=== PATIENT | female | born 1945 | race Caucasian/White ===

== ENCOUNTER 2017-04-09 23:25 | Inpatient (IN) | payer MEDICARE, OTHER ==
[~2017-04-09] VITALS: Ht 165.1 cm; Wt 85.7 kg
[~2017-04-09 23:25] MED LIST: CRESTOR40 MG PO; GLUCOPHAGE1000 MG PO; LOPRESSOR25 PO; LOSARTAN-HCTZ1 EAC1 PO; NEURONTIN 300M300 M2 PO; OXYCODONE-ACET1 EAC2 PO
[2017-04-09 23:28] VITALS: BP 129/69
[2017-04-09] MEDS ORDERED: COZAAR 50 MG TA50 M2 PO (23:48)
[2017-04-09] MEDS ORDERED: HYDRALAZINE 2525 MG PO (23:49)
[2017-04-09] MEDS ORDERED: OMEPRAZOLE 20 M20 M1 PO (23:49)
[2017-04-09] MEDS ORDERED: BRILINTA90 MG PO (23:50)
[2017-04-09] MEDS ORDERED: FLORASTOR250 MG PO (23:50)
[2017-04-09] MEDS ORDERED: ULTRAM 50MG TAB50 MG PO (23:51)
[2017-04-09] MEDS ORDERED: AMLODIPINE BESY10 MG PO (23:52)
[2017-04-09] MEDS ORDERED: AMIODARONE HCL100 MG PO (23:52)
[2017-04-09] MEDS ORDERED: AUGMENTIN 875-1 EACH PO (23:53)
[2017-04-09] MEDS ORDERED: TESSALON PERLE100 MG PO (23:54)
[2017-04-09] MEDS ORDERED: LIPITOR80 MG PO (23:54)
[2017-04-09] MEDS ORDERED: DOXYCYCLINE 10100 MG PO (23:54)
[2017-04-09] MEDS ORDERED: AMARYL4 MG PO (23:56)
[2017-04-09] MEDS ORDERED: NEURONTIN600 MG PO (23:56)
[2017-04-09] MEDS ORDERED: FEOSOL325 M1 PO (23:56)
[2017-04-09] MEDS ORDERED: LANTUS SUBQ ×2 (23:57→23:59)
[2017-04-10 00:49] LABS: HEMOGLOBIN 10.1 gm/dL (12.0-15.0); MCH 26.3 pg (26.0-34.0); MCHC 31.4 g/dL (28.0-37.0); MCV 83.6 fL (80.0-100.0); MPV 8.2 fl. (7.2-11.1); NUCLEATED RBCS 0 /100WBC; PLATELET COUNT* 212 thou/uL (150-400); RBC 3.83 mil/uL (4.20-5.00); RDW-CV 25.4 % (10.5-14.5); WBC 13.4 thou/uL (4.0-11.0)
[2017-04-10 01:00] LABS: CREATININE 1.2 mg/dL (0.6-1.3); POTASSIUM 3.6 mmol/L (3.5-5.1)
[2017-04-10 01:02] LABS: PROTIME 9.9 Seconds (9.20-11.50)
[2017-04-10 01:12] LABS: TOTAL BILIRUBIN 0.4 mg/dL (<0.1-1.0); TOTAL PROTEIN 6.3 g/dL (6.4-8.2); TROPONIN-I LEVEL 0.24 ng/mL (<0.06)
[2017-04-10 01:16] LABS: ABSOLUTE EOSINOPHILS 2.4 thou/uL (0.0-0.7); ABSOLUTE LYMPHOCYTES 0.7 thou/uL (0.8-5.3); ABSOLUTE MONOCYTES 0.5 thou/uL (0.0-1.2); ABSOLUTE NEUTROPHILS 9.8 thou/uL (1.6-8.1); ANISOCYTOSIS 2+; MICROCYTES 1+; OVALOCYTES 1+; POIKILOCYTOSIS 1+; SCHISTOCYTES Occasional; TEARDROPS Occasional
[2017-04-10 01:17] LABS: HYPOCHROMASIA 1+; MACROCYTES 1+; POLYCHROMASIA 1+; TARGET CELLS Occasional
[2017-04-10 01:18] LABS: TOXIC GRANULATION 1+
[2017-04-10 03:00] VITALS: BP 128/66
[2017-04-10 03:15] VITALS: BP 166/48
[2017-04-10 05:13] LABS: URINE BILIRUBIN NEGATIVE (Negative); URINE BLOOD NEGATIVE (Negative); URINE CLARITY CLEAR; URINE COLOR YELLOW; URINE GLUCOSE-RANDOM 1+ (Negative); URINE KETONES NEGATIVE (Negative); URINE LEUKOCYTES-REFLEX NEGATIVE (Negative); URINE NITRITE-REFLEX NEGATIVE (Negative); URINE PROTEIN 1+ (Negative); URINE UROBILINOGEN 0.2 E.U./dl (0.2-1.0)
[2017-04-10 08:30] VITALS: BP 155/54
[2017-04-10 11:29] VITALS: BP 142/47
--- NOTE | 2017-04-10 12:08 | EKG ---
[place] [address] ELECTROCARDIOGRAM REPORT Name: PANCINDI Asha Room: [address] ADM IN [facility].#: [id number] Admission: 04/10/17 Attend Phys: Kamala Gutiérrez MD Discharge: Date of : 49 Report #: [id number] THIS REPORT FOR: //name// [facility] ED Test Date: 2017-04-09 Test Time: 23:31:27 Pat Name: CINDI PAN Department: Room: [facility] Gender: F Rn Office: CAROL [place] : 1945 Requested By: Clemencia Back Order Number: [id number] MD: Partha Tan Measurements Intervals [place] Rate: 95 P: [place]: QRS: 102 QRSD: 89 T: -18 QT: 382 QTc: 481 Interpretive Statements sinus rhythm Anterior infarct, old Borderline repolarization abnormality No previous ECG available for comparison Electronically Signed On 04-10-2017 12:08:12 REGISTERED NURSES by Partha Tan [email or web address] <ELECTRONICALLY SIGNED> By: Partha Tan MD, [facility] 04/10/17 1208 D: 02/2330 30 Partha Tan MD, FACC /EPI
[2017-04-10 13:57] LABS: CALCIUM 8.4 mg/dL (8.5-10.1); CREATININE 1.2 mg/dL (0.6-1.3); MAGNESIUM 1.7 mg/dL (1.8-2.4)
[2017-04-10 15:37] VITALS: BP 141/47
[2017-04-10 20:00] VITALS: BP 130/46
[2017-04-11] VITALS: BP 123/44
[2017-04-11 04:00] VITALS: BP 117/43
[2017-04-11 08:17] LABS: ABSOLUTE LYMPHOCYTES 0.4 thou/uL (0.8-5.3); ABSOLUTE MONOCYTES 0.1 thou/uL (0.0-1.2); LYMPHOCYTES 3.6 %; NUCLEATED RBCS 0 /100WBC; PLATELET COUNT* 178 thou/uL (150-400); RDW-CV 24.1 % (10.5-14.5); WBC 10.2 thou/uL (4.0-11.0)
[2017-04-11 08:19] LABS: ABSOLUTE NEUTROPHILS 9.7 thou/uL (1.6-8.1); BASOPHILS 0.2 %; HEMATOCRIT 28.3 % (37.0-47.0); HEMOGLOBIN 8.9 gm/dL (12.0-15.0); MCH 26.3 pg (26.0-34.0); MCHC 31.6 g/dL (28.0-37.0); MCV 83.3 fL (80.0-100.0); MONOCYTES 0.9 %; MPV 8.3 fl. (7.2-11.1); POLYS 95.3 %
[2017-04-11 08:30] VITALS: BP 128/48
[2017-04-11 08:34] LABS: ALBUMIN 2.6 g/dL (3.4-5.0); CALCIUM 8.3 mg/dL (8.5-10.1); CREATININE 1.5 mg/dL (0.6-1.3); MAGNESIUM 1.8 mg/dL (1.8-2.4); POTASSIUM 4.3 mmol/L (3.5-5.1); TOTAL BILIRUBIN 0.2 mg/dL (<0.1-1.0); TOTAL PROTEIN 5.3 g/dL (6.4-8.2)
[2017-04-11 12:00] VITALS: BP 137/41
[2017-04-11 16:00] VITALS: BP 119/36
[2017-04-11 20:00] VITALS: BP 127/45
[2017-04-12] VITALS: BP 125/42
[2017-04-12 04:00] VITALS: BP 115/38
[2017-04-12 05:36] LABS: ABSOLUTE LYMPHOCYTES 1.1 thou/uL (0.8-5.3); ABSOLUTE MONOCYTES 0.9 thou/uL (0.0-1.2); ABSOLUTE NEUTROPHILS 9.3 thou/uL (1.6-8.1); BASOPHILS 0.1 %; EOSINOPHILS 0.1 %; HEMOGLOBIN 8.2 gm/dL (12.0-15.0); LYMPHOCYTES 9.9 %; MCH 25.5 pg (26.0-34.0); MCHC 30.4 g/dL (28.0-37.0); MONOCYTES 7.9 %; MPV 8.6 fl. (7.2-11.1); NUCLEATED RBCS 0 /100WBC; PLATELET COUNT* 176 thou/uL (150-400); RBC 3.22 mil/uL (4.20-5.00); RDW-CV 23.9 % (10.5-14.5); WBC 11.4 thou/uL (4.0-11.0)
[2017-04-12 06:46] LABS: ALBUMIN 2.5 g/dL (3.4-5.0); CALCIUM 8.1 mg/dL (8.5-10.1); CREATININE 1.9 mg/dL (0.6-1.3); TOTAL BILIRUBIN 0.1 mg/dL (<0.1-1.0); TOTAL PROTEIN 5.4 g/dL (6.4-8.2)
[2017-04-12 08:30] VITALS: BP 138/53
[2017-04-12 12:10] VITALS: BP 126/57
[2017-04-12] MEDS ORDERED: PLAVIX 75 MG TA75 M1 PO (14:00)
[2017-04-12] MEDS ORDERED: LEVAQUIN 750 M750 MG PO (14:01)
[2017-04-12] MEDS ORDERED: PREDNISONE 10 M10 MG PO (14:01)
[2017-04-12] MEDS ORDERED: LASIX 20 MG TAB20 MG PO (14:01)
[2017-04-12] MEDS ORDERED: CARAFATE 1 GM TA1 G1 PO (14:02)
[2017-04-12] MEDS ORDERED: TESSALON PERLE100 M1 PO (14:02)
[2017-04-12 14:46] VITALS: BP 126/57
[2017-04-12 15:03] VITALS: BP 126/57
--- NOTE | 2017-04-12 18:15 | CON ---
[address] [address] CONSULTATION Name: VIVIANECINDI A Room: [address] IN ..#: [id number] Admission: 04/10/17 Attend Phys: Kamala Gutiérrez MD Discharge: 04/12/17 Date of : 49 Report #: [id number] THIS REPORT FOR: //name// CC: Adithya Gutiérrez DATE OF SERVICE: 04/10/2017 Cardiology Consultation HISTORY OF PRESENT ILLNESS: The patient is a 72-year-old single white female who was last seen in the hospital today after she complained of being short of breath. The patient has an extensive and complicated past medical history. Unfortunately, none of her old records are here at [place]. She states she had quadruple coronary bypass surgery at [facility] in 1997. She has been followed by Dr. Beltre since that time. She notes that last May she had a coronary stent placed by Dr. Beebe at [place] through the right femoral artery. 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 She had a wound VAC placed and eventually had to have surgery. She was anemic and required a transfusion. She had another coronary stent placed in December and apparently at that time, it was placed from the radial artery at [place]. She was actually just admitted to [facility] 10 days ago apparently with pneumonia. She was there for 10 days. She then was discharged from [facility] yesterday afternoon. She went home and ate dinner. After dinner, she laid down and felt short of breath. Her daughter brought her here to [place]. According to the patient, the reason she came here was that she did not get any answers from her doctors at [facility]. She apparently had been advised to go to a prison unit, but she refused. She denied any fever. She has had some chest tightness. Denied any syncope. PAST MEDICAL HISTORY: Otherwise, significant for hysterectomy, tonsillectomy, knee surgery, cataract extraction, hypertension, diabetes and hyperlipidemia. MEDICATIONS: Consists of amiodarone for an episode of atrial fibrillation which she was just recently placed on, amlodipine, Augmentin, Lipitor, Neurontin, Amaryl, insulin, losartan, omeprazole, Crestor, Brilinta, tramadol, she is not taking aspirin. ALLERGIES: Has an intolerance to CODEINE. FAMILY HISTORY: Positive for heart disease. SOCIAL HISTORY: She is , lives by herself and 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 Quit smoking years ago. No alcohol abuse. REVIEW OF SYSTEMS: She states she may have had a small stroke in the past. She has no history of asthma, peptic ulcer disease or liver disease. She has chronic kidney disease, no cancer. No psychiatric illness. PHYSICAL EXAMINATION: GENERAL: Revealed an elderly female lying in bed. She appeared in no distress. VITAL SIGNS: She had a blood pressure 130/60, pulse 70. She is afebrile. HEENT: She was anicteric. Conjunctivae pink. Mucous membranes moist. NECK: Veins nondistended. systolic murmur noted in the carotids. CHEST: Clear to auscultation. CARDIAC: Regular rhythm, grade 3 systolic ejection murmur. ABDOMEN: Soft, nontender. EXTREMITIES: Had no edema. Dorsalis pedis pulse could not be palpated. SKIN: Dry and warm. NEUROLOGIC: Nonfocal. LYMPH: No adenopathy. MUSCULOSKELETAL: No joint effusion. PSYCHIATRIC: Mood is appropriate. DIAGNOSTIC DATA: Her ECG done last night showed a sinus rhythm, left atrial enlargement, nonspecific T-wave changes. Unfortunately, as mentioned, there are no old EKGs to compare it to. Her workup in the emergency room last night, she had a portable chest x-ray that showed cardiomegaly, atelectasis in left lower lung. LABORATORY DATA: Sodium 139, glucose is 264, alkaline phosphatase is 123. Her troponin was 0.24, this morning is 0.22. Her white blood cell count 13.4, hemoglobin of 10.0. IMPRESSION AND RECOMMENDATIONS: 1. Chest pain, possible angina. The patient had previous bypass surgery. She had stents placed last May and December at [place]. I will attempt to obtain the old records. At this time, I would not recommend repeat cardiac catheterization. 2. Shortness of breath: The patient recently treated for pneumonia. 3. . 4. 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 5. Hypertension. The patient has been on a calcium graciela and ARB. 6. History of atrial fibrillation. The patient is on amiodarone. 7. Diabetes. 8. Hyperlipidemia. The patient is on a statin drug. 9. Murmur of aortic stenosis. I will attempt to obtain the records after, the [address] [place] [address] CONSULTATION Name: CINDI PAN Room: [address]#: [id number] Admission: 04/10/17 Attend Phys: Kamala Gutiérrez MD Discharge: 04/12/17 Date of : 49 Report #: [id number] patient was just discharged yesterday following a 10-day hospitalization at [place]. <ELECTRONICALLY SIGNED> By: Partha Tan MD, FACC 04/12/17 1815 0933 1225Dageorgina Tan MD, FACC /nt
== END 2017-04-12 16:15 | disposition home health service (06) | DRG 177 ==
LOC: M.ERS 23:25 → M.2W 04-10 00:44 → M.TBA-ER 04-10 00:44 → M.2W 04-10 01:39
PROVIDERS: Emergency Medicine; Internal Medicine; ADMIT Internal Medicine
DX: J15.6 Pneumonia due to other Gram-negative bacteria (principal); I50.33 Acute on chronic diastolic (congestive) heart failure; J44.0 Chronic obstructive pulmonary disease with (acute) lower respiratory infection; I48.92 Unspecified atrial flutter; I48.91 Unspecified atrial fibrillation; E78.5 Hyperlipidemia, unspecified; I11.0 Hypertensive heart disease with heart failure; I35.0 Nonrheumatic aortic (valve) stenosis; K21.9 Gastro-esophageal reflux disease without esophagitis; I25.10 Atherosclerotic heart disease of native coronary artery without angina pectoris; D64.9 Anemia, unspecified; E11.9 Type 2 diabetes mellitus without complications; I25.2 Old myocardial infarction; Z95.5 Presence of coronary angioplasty implant and graft; Z79.899 Other long term (current) drug therapy; Z88.5 Allergy status to narcotic agent; Z90.710 Acquired absence of both cervix and uterus; Z90.49 Acquired absence of other specified parts of digestive tract; Z98.49 Cataract extraction status, unspecified eye; Z82.49 Family history of ischemic heart disease and other diseases of the circulatory system; Z87.891 Personal history of nicotine dependence; Z83.3 Family history of diabetes mellitus

== ENCOUNTER 2017-07-05 09:45 | Inpatient (IN) | payer MEDICARE, OTHER ==
[~2017-07-05] VITALS: Ht 165.1 cm; Wt 82.1 kg
--- NOTE | ~2017-07-05 | PROC ---
[address] [address] PROCEDURE REPORT Name: CINDI PAN Room: [address] IN ..#: [id number] Admission: 07/05/17 Attend Phys: Drake Merritt, Discharge: 07/17/17 Date of : 49 Report #: [id number] THIS REPORT FOR: //name// For GI report, please see the Provation report in Perceptive 7 content. By: 0656Medical Records Staff VIDHYA /JAYDE
[~2017-07-05 09:45] MED LIST changes: +AMARYL4 MG PO; +AMIODARONE HCL100 MG PO; +AMLODIPINE BESY10 MG PO; +AUGMENTIN 875-1 EACH PO; +BRILINTA90 MG PO; +CARAFATE 1 GM TA1 G1 PO; +COZAAR 50 MG TA50 M2 PO; +DOXYCYCLINE 10100 MG PO; +FEOSOL325 M1 PO; +FLORASTOR250 MG PO; +HYDRALAZINE 2525 MG PO; +LANTUS SUBQ; +LASIX 20 MG TAB20 MG PO; +LEVAQUIN 750 M750 MG PO; +LIPITOR80 MG PO; +NEURONTIN600 MG PO; +OMEPRAZOLE 20 M20 M1 PO; +PLAVIX 75 MG TA75 M1 PO; +PREDNISONE 10 M10 MG PO; +TESSALON PERLE100 M1 PO; +TESSALON PERLE100 MG PO; +ULTRAM 50MG TAB50 MG PO
[2017-07-05 09:48] VITALS: BP 165/59
[2017-07-05 10:06] LABS: HEMATOCRIT 30.8 % (37.0-47.0); HEMOGLOBIN 9.9 gm/dL (12.0-15.0); MCH 25.9 pg (26.0-34.0); MCHC 32.1 g/dL (28.0-37.0); MCV 80.8 fL (80.0-100.0); MPV 7.7 fl. (7.2-11.1); NUCLEATED RBCS 0 /100WBC; PLATELET COUNT* 229 thou/uL (150-400); RBC 3.81 mil/uL (4.20-5.00); RDW-CV 18.8 % (10.5-14.5); WBC 9.5 thou/uL (4.0-11.0)
[2017-07-05 10:16] LABS: ANION GAP 5 mmol/L (7-16); BUN 36 mg/dL (7-18); CALCIUM 9.2 mg/dL (8.5-10.1); CHLORIDE 100 mmol/L (98-107); CO2 31 mmol/L (21-32); CREATININE 1.4 mg/dL (0.6-1.3); GLUCOSE 109 mg/dL (70-99); POTASSIUM 3.9 mmol/L (3.5-5.1); PROTIME 9.7 Seconds (9.20-11.50); SODIUM 136 mmol/L (136-145)
[2017-07-05 10:26] LABS: ALBUMIN 3.3 g/dL (3.4-5.0); ALKALINE PHOSPHATASE 92 U/L (46-116); LIPASE 66 U/L (73-393); MAGNESIUM 1.9 mg/dL (1.8-2.4); NT-PRO BRAIN NAT PEPTIDE 1627 pg/mL (<300); SGOT 9 U/L (15-37); SGPT 16 U/L (30-65); TOTAL BILIRUBIN 0.3 mg/dL (<0.1-1.0); TOTAL PROTEIN 7.4 g/dL (6.4-8.2); TROPONIN-I LEVEL <0.06 ng/mL (<0.06)
[2017-07-05 10:28] LABS: ABSOLUTE BASOPHILS 0.1 thou/uL (0.0-0.2); ABSOLUTE EOSINOPHILS 0.4 thou/uL (0.0-0.7); ABSOLUTE LYMPHOCYTES 0.9 thou/uL (0.8-5.3); ABSOLUTE MONOCYTES 0.2 thou/uL (0.0-1.2); ANISOCYTOSIS 1+; PLATELET ESTIMATE ADEQUATE
[2017-07-05 15:27] VITALS: BP 170/49
[2017-07-05 15:45] VITALS: BP 144/54
--- NOTE | 2017-07-05 16:51 | EKG ---
[place] [address] ELECTROCARDIOGRAM REPORT Name: CINDI PAN Room: [address] IN [facility]#: [id number] Admission: 07/05/17 Attend Phys: Drake Merritt, Discharge: Date of : 49 Report #: [id number] THIS REPORT FOR: //name// [facility] ED Test Date: 2017-07-05 Test Time: 09:53:38 Pat Name: CINDI PAN Department: Room: Gender: F Method Consultant: : 1945 Requested By: Paul Cullen Order Number: [id number] MD: Partha Tan Measurements Intervals [place] Rate: 74 P: 42 ME: 187 QRS: 72 QRSD: 99 T: -10 QT: 411 QTc: 456 Interpretive Statements Sinus rhythm Probable left atrial enlargement Probable anteroseptal infarct, recent Baseline wander in lead(s) V5 Compared to ECG 04/09/2017 23:31:27 No significant changes Electronically Signed On 07-05-2017 16:51:47 CDT by Partha Tan [email or web address] <ELECTRONICALLY SIGNED> By: Partha Tan MD, [facility] 07/05/17 1651 0953 0953 Partha Tan MD, [facility] /EPI
--- NOTE | 2017-07-05 17:09 | 2DMMODE ---
[place] [address] 2 D/M-MODE ECHOCARDIOGRAM Name: CINDI PAN Room: [address] IN [facility]#: [id number] Admission: 07/05/17 Attend Phys: Drake Molina Discharge: Date of : 49 Date of Service: 07/05/17 1709 Report #: [id number] THIS REPORT FOR: //name// APPROVED REPORT Study performed: 07/05/2017 15:08:56 EXAM: Comprehensive 2D, Doppler, and color-flow Echocardiogram Patient Location: In-Patient Room #: er Status: routine BSA: 1.86 HR: 67 bpm BP: 160/46 mmHg Rhythm: NSR Other Information Study Quality: Good Indications Chest Pain 2D Dimensions LVEF(%): 77.92 (>50%) IVSd: 12.95 (7-11mm) LVOT Diam: 19.06 (18-24mm) LVDd: 53.99 mm PWd: 10.90 (7-11mm) Ascending Ao: 26.75 (22-36mm) LVDs: 28.62 (25-40mm) Aortic Root: 31.56 mm Phillips's LVEF: 77.92 % Volumes Left Atrial Volume (Systole) LA ESV Index: 42.40 mL/m2 Aortic Valve AoV Peak Tono.: 2.05 m/s AO Peak Gr.: 16.76 mmHg LVOT Max P.01 mmHg AO Mean Gr.: 9.00 mmHg LVOT Mean P.02 mmHg LVOT Max V: 1.23 m/s AO V2 VTI: 50.84 cm LVOT Mean V: 0.79 m/s ROSARIO (VTI): 1.80 cm2 LVOT V1 VTI: 31.99 cm Mitral Valve E/A Ratio: 1.49 [place] [address] 2 D/M-MODE ECHOCARDIOGRAM Name: CINDI PAN Room: [address] IN [facility]#: [id number] Admission: 07/05/17 Attend Phys: Drake Molina Discharge: Date of : 49 Date of Service: 07/05/17 1709 Report #: [id number] MV Decel. Time: 238.95 ms MV E Max Tono.: 1.57 m/s MV PHT: 69.30 ms MVA (PHT): 3.17 cm2 TDI E/Lateral E': 15.70 E/Medial E': 26.17 Medial E' Tono.: 0.06 m/s Lateral E' Tono.: 0.10 m/s Pulmonary Valve PV Peak Tono.: 1.30 m/s PV Peak Gr.: 6.71 mmHg Tricuspid Valve TR Peak Gr.: 33.03 mmHg RVSP: 38.00 mmHg Left Ventricle The left ventricle is normal size. There is normal LV segmental wall motion. There is normal left ventricular wall thickness. Left ventricular systolic function is normal. The left ventricular ejection fraction is within the normal range. LVEF is 55-60%. The left ventricular diastolic function is normal. Right Ventricle The right ventricle is normal size. The right ventricular systolic function is normal. Atria Left atrium is mild to moderately dilated. The right atrium size is normal. Aortic Valve Mild aortic valve sclerosis. No aortic regurgitation is present. Mild aortic stenosis. Mitral Valve There is mitral annular calcification. Mild mitral regurgitation. No evidence of mitral valve stenosis. Tricuspid Valve The tricuspid valve is normal in structure. Trace tricuspid regurgitation. The RVSP is 40 mmHg. Pulmonic Valve The pulmonary valve is normal in structure. There is no pulmonic [place] [address] 2 D/M-MODE ECHOCARDIOGRAM Name: CINDI PAN Asha Room: [address] IN [facility]#: [id number] Admission: 07/05/17 Attend Phys: Drake Molina Discharge: Date of : 49 Date of Service: 07/05/17 1709 Report #: [id number] Great Vessels The aortic root is normal in size. IVC is normal in size and collapses with >50% inspiration Pericardium There is no pericardial effusion. <Conclusion> LVEF is 55-60%. Left atrium is mild to moderately dilated. Mild aortic stenosis. Mild mitral regurgitation. <ELECTRONICALLY SIGNED> By: Parhta Tan MD, [facility] 07/05/171708 08 08 Partha Tan MD, FACC /INF
[2017-07-05 20:00] VITALS: BP 162/56
[2017-07-06] VITALS: BP 102/51
[2017-07-06 04:00] VITALS: BP 148/55
[2017-07-06 08:00] VITALS: BP 151/44
[2017-07-06 12:06] VITALS: BP 137/42
[2017-07-06 15:40] VITALS: BP 128/44
[2017-07-06 20:00] VITALS: BP 140/50
[2017-07-07] VITALS (7 sets, daily range): BP systolic 124–151; BP diastolic 43–59
[2017-07-07 07:35] LABS: CALCIUM 8.6 mg/dL (8.5-10.1); CREATININE 1.4 mg/dL (0.6-1.3); POTASSIUM 4.4 mmol/L (3.5-5.1)
[2017-07-07 12:53] LABS: CREATININE 1.4 mg/dL (0.6-1.3)
[2017-07-08] VITALS (7 sets, daily range): BP systolic 118–158; BP diastolic 42–78
[2017-07-08 13:49] LABS: HEMOGLOBIN 7.8 gm/dL (12.0-15.0); MCH 26.1 pg (26.0-34.0); MCHC 32.5 g/dL (28.0-37.0); MCV 80.4 fL (80.0-100.0); MPV 7.7 fl. (7.2-11.1); RBC 2.99 mil/uL (4.20-5.00); RDW-CV 17.4 % (10.5-14.5); WBC 8.9 thou/uL (4.0-11.0)
[2017-07-08 13:59] LABS: CALCIUM 8.8 mg/dL (8.5-10.1); CREATININE 1.3 mg/dL (0.6-1.3); MAGNESIUM 1.9 mg/dL (1.8-2.4); POTASSIUM 4.2 mmol/L (3.5-5.1)
--- NOTE | 2017-07-08 18:03 | CON ---
[address] [address] CONSULTATION Name: CINDI PAN Room: [address] IN [facility]#: [id number] Admission: 07/05/17 Attend Phys: Drake Merritt, Discharge: Date of : 49 Report #: [id number] THIS REPORT FOR: //name// CC: Adithya Merritt DATE OF SERVICE: 07/05/2017 TYPE OF REPORT: Cardiology consultation. HISTORY OF PRESENT ILLNESS: The patient is a 72-year-old single white female who was admitted complaining of left arm pain. The patient had coronary artery bypass surgery at [facility] in 1997. She has been followed by Dr. Beltre since that time. A year ago, she had a stent placed by Dr. Beebe at [facility] to the right femoral artery. 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 She had a wound VAC in place and eventually had to have surgery. She was anemic and required a transfusion. She had another stent placed last December from the right radial artery at [facility]. The patient did undergo cardiac rehabilitation at [facility]. She notes that 4 days ago, she was when she tripped and fell. She did not go to the Emergency Room. Today, the patient complained of her left arm was aching. She may have slept on her arm wrong. She denied any swelling or trauma to her arm. She denied any rash. Because of the pain, she finally came to the Emergency Room today and was admitted. She does get short of breath with exertion but has had no increase in edema, palpitations or syncope. PAST MEDICAL HISTORY: Otherwise significant for previous hysterectomy, tonsillectomy, knee surgery, cataract extraction, hypertension, diabetes, hyperlipidemia and atrial fibrillation. She uses oxygen with exertion. MEDICATIONS: Consists of amiodarone for atrial fibrillation, although she has never been cardioverted. Amlodipine, atorvastatin, Plavix, furosemide, Neurontin, glimepiride, hydralazine, insulin, losartan, metoprolol, omeprazole, rosuvastatin, sucralfate and tramadol. ALLERGIES: She has an intolerance to CODEINE. FAMILY HISTORY: Heart disease runs in the family. SOCIAL HISTORY: She is , lives in [place]. Quit smoking in 1997. No alcohol abuse. REVIEW OF SYSTEMS: She has had no history of stroke or asthma[place] [address] CONSULTATION Name: CINDI PAN Room: [address]#: [id number] Admission: 07/05/17 Attend Phys: Drake Merritt, Discharge: Date of : 49 Report #: [id number] peptic ulcer in the past. No kidney disease. No cancer. No psychiatric illness. No chronic skin condition. PHYSICAL EXAMINATION: GENERAL: Revealed an elderly female who is lying in bed, appeared in no distress. VITAL SIGNS: Show blood pressure 160/60, pulse 70 and she is afebrile. HEENT: She was anicteric. Conjunctivae pink. Mucous members moist. NECK: Veins nondistended. right carotid bruit was heard. CHEST: Clear to auscultation. CARDIOVASCULAR: Regular rate and rhythm. No murmur. ABDOMEN: Soft and nontender. No masses were palpated. EXTREMITIES: Had no trace edema. Dorsalis pedis pulse cannot be palpated. SKIN: Cool and dry. RADIOLOGICAL DATA: Her ECG on admission showed a sinus rhythm, nonspecific ST and T-wave changes. Her x-rays, she had a portable chest x-ray that showed cardiomegaly, no pulmonary edema. She had an x-ray of her shoulder that showed no acute abnormality. X-ray of her elbow showed no fracture or dislocation. LABORATORY DATA: She had lab work today, sodium 136, BUN 36, creatinine 1.4 which is unchanged and glucose 106. Liver function studies are normal. Troponin 0.06. White blood cell count 9.5, hemoglobin 9.9 and hematocrit 38.8. Her hemoglobin is unchanged from March. IMPRESSION AND RECOMMENDATIONS: 1. Left arm pain. Suspect trauma. Recommend no further cardiac evaluation. 2. Coronary artery disease. Previous stents. I will continue Plavix. 3. Peripheral arterial disease. Previous stents in both legs. No symptoms of claudication. 4. Carotid bruit. Recommend Doppler. 5. Hypertension. The patient has been on a calcium graciela, hydralazine, adrenergic receptor binder and beta graciela. 6. History of atrial fibrillation. The patient is on amiodarone. 7. Hyperlipidemia. The patient is on a statin drug. 8. Previous tobacco abuse. 9. History of peptic ulcer disease. 10. Anemia. No history of bleeding recently. <ELECTRONICALLY SIGNED> By: Partha Tan MD, FACC 07/08/17 1803 1630 2317Daviparesh Tan MD, FACC /nt
[2017-07-09] VITALS (7 sets, daily range): BP systolic 106–145; BP diastolic 41–72
[2017-07-09 02:54] LABS: HEMATOCRIT 23.8 % (37.0-47.0); HEMOGLOBIN 7.7 gm/dL (12.0-15.0); MCH 25.9 pg (26.0-34.0); MCHC 32.1 g/dL (28.0-37.0); MCV 80.5 fL (80.0-100.0); MPV 8.5 fl. (7.2-11.1); RBC 2.96 mil/uL (4.20-5.00); RDW-CV 17.6 % (10.5-14.5); WBC 9.8 thou/uL (4.0-11.0)
[2017-07-09 03:19] LABS: CALCIUM 8.7 mg/dL (8.5-10.1); CREATININE 1.5 mg/dL (0.6-1.3); MAGNESIUM 1.9 mg/dL (1.8-2.4); POTASSIUM 3.9 mmol/L (3.5-5.1)
--- NOTE | 2017-07-09 10:08 | EKG ---
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: isaiah preciado : 1945 Requested By: Kamala Gutiérrez Order Number: [id number] Reading MD: Partha Tna Measurements Intervals [place] Rate: 78 P: 36 [place]: 175 QRS: 63 QRSD: 104 T: -19 QT: 424 QTc: 484 Interpretive Statements Sinus rhythm Atrial premature complexes Probable left atrial enlargement Inferior infarct, age indeterminate Compared to ECG 07/05/2017 09:53:38 Atrial premature complex(es) now present Myocardial infarct finding still present Electronically Signed On 07-09-2017 10:07:53 CDT by Partha Tan [email or web address] <ELECTRONICALLY SIGNED> By: Partha Tan MD, FACC 07/09/17 1007 192 19 Partha Tan MD, [facility] /EPI
--- NOTE | 2017-07-09 17:18 | EKG ---
[place] [address] ELECTROCARDIOGRAM REPORT Name: CINDI PAN Room: [address] ADM IN ..#: [id number] Admission: 07/05/17 Attend Phys: Drake Merritt, Discharge: Date of : 49 Report #: [id number] THIS REPORT FOR: //name// [facility] Test Date: 2017-07-09 Test Time: 12:26:41 Pat Name: CINDI PAN Department: Room: [address] Gender: F Utility Specialist: VICENTE : 1945 Requested By: Markus Campo Order Number: [id number] Reading MD: Partha Tan Measurements Intervals [place] Rate: 84 P: 56 TN: 173 QRS: 81 QRSD: 108 T: -11 QT: 440 QTc: 521 Interpretive Statements Sinus rhythm Probable left atrial enlargement Borderline right axis deviation Borderline T abnormalities, inferior leads Prolonged QT interval Compared to ECG 07/08/2017 19:20:12 Prolonged QT interval now present Atrial premature complex(es) no longer present Myocardial infarct finding no longer present Electronically Signed On 07-09-2017 17:18:27 CDT by Partha Tan [email or web address] <ELECTRONICALLY SIGNED> By: Partha Tan MD, FAC 07/09/17 1718 1226 1226 Partha Tan MD, FAC /EPI
[2017-07-10] VITALS (7 sets, daily range): BP systolic 95–129; BP diastolic 40–48
[2017-07-10 05:24] LABS: HEMATOCRIT 21.7 % (37.0-47.0); MCH 25.6 pg (26.0-34.0); MCHC 32.1 g/dL (28.0-37.0); MCV 79.7 fL (80.0-100.0); MPV 8.3 fl. (7.2-11.1); NUCLEATED RBCS 0 /100WBC; PLATELET COUNT* 229 thou/uL (150-400); RBC 2.73 mil/uL (4.20-5.00); RDW-CV 17.9 % (10.5-14.5)
[2017-07-10 05:39] LABS: ALBUMIN 2.4 g/dL (3.4-5.0); CALCIUM 8.1 mg/dL (8.5-10.1); CREATININE 2.7 mg/dL (0.6-1.3); POTASSIUM 3.7 mmol/L (3.5-5.1); TOTAL BILIRUBIN 0.2 mg/dL (<0.1-1.0); TOTAL PROTEIN 6.1 g/dL (6.4-8.2)
[2017-07-10 05:51] LABS: ABSOLUTE EOSINOPHILS 0.3 thou/uL (0.0-0.7); ABSOLUTE LYMPHOCYTES 1.3 thou/uL (0.8-5.3); ABSOLUTE MONOCYTES 0.4 thou/uL (0.0-1.2); ABSOLUTE NEUTROPHILS 7.1 thou/uL (1.6-8.1); HYPOCHROMASIA 1+; PLATELET ESTIMATE ADEQUATE
[2017-07-10 05:52] LABS: ANISOCYTOSIS 1+; POIKILOCYTOSIS 1+
--- NOTE | 2017-07-10 16:43 | EKG ---
[place] [address] ELECTROCARDIOGRAM REPORT Name: CINDI PAN Room: [address] ADM IN M.R.#: [id number] Admission: 07/05/17 Attend Phys: Drake Merritt, Discharge: Date of : 49 Report #: [id number] THIS REPORT FOR: //name// [facility] Test Date: 2017-07-10 Test Time: 14:45:57 Pat Name: CINDI PAN Department: Room: [address] Gender: F Line Service Person: : 1945 Requested By: Darrius Aguirre Order Number: [id number] Jovani MD: Ryan Jolly Measurements Intervals [place] Rate: 63 P: 29 VT: 177 QRS: 66 QRSD: 112 T: 8 QT: 497 QTc: 509 Interpretive Statements Sinus rhythm Borderline intraventricular conduction delay Prolonged QT interval Compared to ECG 07/09/2017 12:26:41 T-wave abnormality no longer present Electronically Signed On 07-10-2017 16:43:07 CDT by Ryan Jolly [email or web address] <ELECTRONICALLY SIGNED> By: Ryan Jolly MD, [facility] 07/10/17 1643 1445 1445 Ryan Jolly MD, [facility] /EPI
[2017-07-10 17:05] LABS: HEMATOCRIT 22.8 % (37.0-47.0); HEMOGLOBIN 7.5 gm/dL (12.0-15.0)
[2017-07-11 01:37] VITALS: BP 116/40
[2017-07-11 03:56] LABS: ABSOLUTE BASOPHILS 0.1 thou/uL (0.0-0.2); ABSOLUTE EOSINOPHILS 0.6 thou/uL (0.0-0.7); ABSOLUTE LYMPHOCYTES 1.2 thou/uL (0.8-5.3); ABSOLUTE MONOCYTES 0.5 thou/uL (0.0-1.2); ABSOLUTE NEUTROPHILS 6.3 thou/uL (1.6-8.1); BASOPHILS 0.7 %; EOSINOPHILS 6.3 %; HEMATOCRIT 22.2 % (37.0-47.0); HEMOGLOBIN 7.3 gm/dL (12.0-15.0); LYMPHOCYTES 13.6 %; MCH 26.6 pg (26.0-34.0); MCHC 32.8 g/dL (28.0-37.0); MCV 81.1 fL (80.0-100.0); MONOCYTES 6.2 %; MPV 8.1 fl. (7.2-11.1); NUCLEATED RBCS 0 /100WBC; PLATELET COUNT* 199 thou/uL (150-400); POLYS 73.2 %; RBC 2.74 mil/uL (4.20-5.00); RDW-CV 17.9 % (10.5-14.5); WBC 8.7 thou/uL (4.0-11.0)
[2017-07-11 03:59] VITALS: BP 118/74
[2017-07-11 04:13] LABS: CALCIUM 7.6 mg/dL (8.5-10.1); POTASSIUM 3.5 mmol/L (3.5-5.1)
[2017-07-11 04:53] LABS: CREATININE 3.8 mg/dL (0.6-1.3)
[2017-07-11 08:00] VITALS: BP 122/40
[2017-07-11 11:45] VITALS: BP 125/54
[2017-07-11 16:00] VITALS: BP 125/48
[2017-07-11 18:18] LABS: HEMATOCRIT 24.5 % (37.0-47.0)
[2017-07-11 18:34] LABS: URINE BILIRUBIN NEGATIVE (Negative); URINE BLOOD NEGATIVE (Negative); URINE CLARITY CLEAR; URINE COLOR YELLOW; URINE GLUCOSE-RANDOM NEGATIVE (Negative); URINE KETONES NEGATIVE (Negative); URINE LEUKOCYTES-REFLEX NEGATIVE (Negative); URINE NITRITE-REFLEX NEGATIVE (Negative); URINE PROTEIN 2+ (Negative); URINE UROBILINOGEN 0.2 E.U./dl (0.2-1.0)
[2017-07-11 18:48] LABS: HYALINE CASTS >10 Many /LPF (None Seen); SQUAMOUS 0-3 Few /LPF (0-3)
[2017-07-11 18:50] LABS: CRYSTALS None Seen /LPF (None Seen); MUCUS None Seen strn/LPF (None Seen); URINE WBC-REFLEX 0-5 Rare /HPF (0-5)
[2017-07-11 18:51] LABS: URINE RBC 3-10 Few /HPF (0-2)
[2017-07-11 20:15] VITALS: BP 145/53
[2017-07-12 00:55] VITALS: BP 122/45
[2017-07-12 04:28] VITALS: BP 124/44
[2017-07-12 04:41] LABS: ABSOLUTE BASOPHILS 0.1 thou/uL (0.0-0.2); ABSOLUTE EOSINOPHILS 0.8 thou/uL (0.0-0.7); ABSOLUTE LYMPHOCYTES 0.9 thou/uL (0.8-5.3); ABSOLUTE MONOCYTES 0.6 thou/uL (0.0-1.2); ABSOLUTE NEUTROPHILS 6.9 thou/uL (1.6-8.1); BASOPHILS 0.5 %; EOSINOPHILS 8.5 %; HEMATOCRIT 22.6 % (37.0-47.0); HEMOGLOBIN 7.3 gm/dL (12.0-15.0); LYMPHOCYTES 10.2 %; MCH 26.3 pg (26.0-34.0); MCHC 32.4 g/dL (28.0-37.0); MONOCYTES 6.4 %; MPV 8.3 fl. (7.2-11.1); NUCLEATED RBCS 0 /100WBC; PLATELET COUNT* 223 thou/uL (150-400); POLYS 74.4 %; RBC 2.79 mil/uL (4.20-5.00); RDW-CV 17.6 % (10.5-14.5); WBC 9.2 thou/uL (4.0-11.0)
[2017-07-12 05:05] LABS: ALBUMIN 2.6 g/dL (3.4-5.0); CREATININE 4.1 mg/dL (0.6-1.3); POTASSIUM 3.6 mmol/L (3.5-5.1); TOTAL BILIRUBIN 0.2 mg/dL (<0.1-1.0); TOTAL PROTEIN 5.9 g/dL (6.4-8.2)
[2017-07-12 08:00] VITALS: BP 140/54
[2017-07-12 11:30] VITALS: BP 129/51
[2017-07-12 16:19] VITALS: BP 136/52
[2017-07-12 19:45] VITALS: BP 147/56
[2017-07-13 00:39] VITALS: BP 130/41
[2017-07-13 04:23] VITALS: BP 134/50
[2017-07-13 05:09] LABS: ALBUMIN 2.6 g/dL (3.4-5.0); CALCIUM 8.1 mg/dL (8.5-10.1); CREATININE 3.8 mg/dL (0.6-1.3); POTASSIUM 3.8 mmol/L (3.5-5.1); TOTAL BILIRUBIN 0.2 mg/dL (<0.1-1.0)
[2017-07-13 11:30] VITALS: BP 148/59
[2017-07-13 16:00] VITALS: BP 153/58
[2017-07-13 20:00] VITALS: BP 160/49
[2017-07-14 00:40] VITALS: BP 155/53
[2017-07-14 04:39] VITALS: BP 142/51
[2017-07-14 05:21] LABS: ALBUMIN 2.7 g/dL (3.4-5.0); CALCIUM 8.5 mg/dL (8.5-10.1); TOTAL BILIRUBIN 0.2 mg/dL (<0.1-1.0); TOTAL PROTEIN 6.5 g/dL (6.4-8.2)
[2017-07-14 05:27] LABS: HEMATOCRIT 23.4 % (37.0-47.0); HEMOGLOBIN 7.7 gm/dL (12.0-15.0); MCH 26.7 pg (26.0-34.0); MCV 80.7 fL (80.0-100.0); MPV 8.3 fl. (7.2-11.1); NUCLEATED RBCS 0 /100WBC; PLATELET COUNT* 248 thou/uL (150-400); RBC 2.89 mil/uL (4.20-5.00); RDW-CV 17.7 % (10.5-14.5); WBC 10.2 thou/uL (4.0-11.0)
[2017-07-14 07:56] LABS: ABSOLUTE EOSINOPHILS 0.6 thou/uL (0.0-0.7); ABSOLUTE MONOCYTES 0.5 thou/uL (0.0-1.2); ABSOLUTE NEUTROPHILS 8.1 thou/uL (1.6-8.1); ANISOCYTOSIS 1+; HYPOCHROMASIA Occasional; PLATELET ESTIMATE ADEQUATE; POIKILOCYTOSIS 1+
[2017-07-14 09:00] VITALS: BP 159/51
[2017-07-14 16:04] VITALS: BP 154/56
[2017-07-14 19:30] VITALS: BP 170/67
[2017-07-15 03:26] VITALS: BP 152/54
[2017-07-15 05:36] LABS: ABSOLUTE BASOPHILS 0.1 thou/uL (0.0-0.2); ABSOLUTE EOSINOPHILS 0.7 thou/uL (0.0-0.7); ABSOLUTE MONOCYTES 0.8 thou/uL (0.0-1.2); BASOPHILS 0.6 %; EOSINOPHILS 7.3 %; HEMATOCRIT 22.3 % (37.0-47.0); HEMOGLOBIN 7.2 gm/dL (12.0-15.0); LYMPHOCYTES 10.6 %; MCH 26.1 pg (26.0-34.0); MCHC 32.4 g/dL (28.0-37.0); MCV 80.4 fL (80.0-100.0); MONOCYTES 8.1 %; NUCLEATED RBCS 0 /100WBC; PLATELET COUNT* 260 thou/uL (150-400); POLYS 73.4 %; RBC 2.78 mil/uL (4.20-5.00); RDW-CV 18.2 % (10.5-14.5); WBC 9.5 thou/uL (4.0-11.0)
[2017-07-15 05:41] LABS: ALBUMIN 2.6 g/dL (3.4-5.0); CALCIUM 8.6 mg/dL (8.5-10.1); POTASSIUM 4.1 mmol/L (3.5-5.1); TOTAL BILIRUBIN 0.2 mg/dL (<0.1-1.0); TOTAL PROTEIN 6.3 g/dL (6.4-8.2)
--- NOTE | 2017-07-15 08:22 | CON ---
[address] [address] CONSULTATION Name: CINDI PAN Room: [address] IN .R.#: [id number] Admission: 07/05/17 Attend Phys: Drake Merritt, Discharge: Date of : 49 Report #: [id number] THIS REPORT FOR: //name// CC: Adithya Merritt DATE OF SERVICE: 07/10/2017 ADDENDUM I have personally seen and examined the patient and reviewed labs and imaging studies. The patient who presented with chest pain and found to have acute over chronic anemia. She also has recent history of peptic ulcer disease as she had a gastric ulcer back in 03/2017. The patient currently on Plavix and aspirin and presents with hemoglobin of 6.1. She is status post transfusion and hemodynamically stable. She has had melanotic stool at least for several days. She does not recall when was her last colonoscopy. We will proceed with upper endoscopy and further evaluate her upper GI. If this was negative, we will consider a colonoscopy. <ELECTRONICALLY SIGNED> By: Sathish Dia MD 07/15/17 0822 1332 1657Sathish Dia MD /nt
--- NOTE | 2017-07-15 08:22 | CON ---
[address] [address] CONSULTATION Name: CINDI PAN Room: [address] IN .R.#: [id number] Admission: 07/05/17 Attend Phys: Drake Merritt, Discharge: Date of : 49 Report #: [id number] THIS REPORT FOR: //name// CC: DMITRI Rhodes Pattanaly Merritt DICTATED BY: Chelsea Delgado [facility] DATE OF SERVICE: 07/11/2017 PRIMARY CARE PHYSICIAN: Dr. Dmitri Braga. Please note at the time of this dictation, the patient was seen and physically examined by myself. REASON FOR CONSULTATION: Acute anemia and melenic stool. HISTORY OF PRESENT ILLNESS: This 72-year-old female who initially came in on the after falling and having some left arm pain and left shoulder pain, which persisted. Then, she subsequently developed some chest pain within the left and radiating to the left arm, and she became short of breath. She had a cardiology workup, which was essentially negative. She then had a vascular workup and was noted to have 70% carotid stenosis, but likely not having any surgery in the near future. Approximately 2 days ago, the patient started having loose stools about 2-3 a day that she describes as being black in nature. She started also having a little bit of epigastric pain with that as well and some nausea. The patient tells me that in March, she was hospitalized at [facility], underwent an EGD and she was told she had a gastric ulcer. She states she has been taking some omeprazole just once a day 20 mg and some Carafate a.c. and at bedtime at that time. She has not had any followup since that EGD, and the patient declines that she has ever had a colonoscopy either. She states prior to her loose bowels, she states they were soft and formed, and she went every day and has never had any issues. ALLERGIES: CODEINE. MEDICATIONS: From home include Crestor, Lopressor, Neurontin, Cozaar, hydralazine, omeprazole, amiodarone, amlodipine, Lipitor, ferrous sulfate, Amaryl, Lantus, Ultram, Plavix, Lasix and Carafate. PAST MEDICAL HISTORY: Congestive heart failure, COPD, AFib, FL, with stent placement, diabetes and history of congestive heart failure. PAST SURGICAL HISTORY: Stent placement, [place] [address] CONSULTATION Name: CINDI PAN Room: [address] IN [facility]#: [id number] Admission: 07/05/17 Attend Phys: Drake Merritt, Discharge: Date of : 47 Report #: [id number] FAMILY HISTORY: Negative for any GI or female cancers. SOCIAL HISTORY: Negative for any alcohol, tobacco or illegal drug use. REVIEW OF SYSTEMS: Twelve-point review of systems is essentially negative except what is mentioned in the HPI. PHYSICAL EXAMINATION: VITAL SIGNS: Temperature 36.6, pulse 75, respirations 14, blood pressure 120/47. HEART: Regular rate and rhythm. LUNGS: Clear, but diminished. ABDOMEN: Soft, positive bowel sounds in all 4 quadrants, with some epigastric tenderness noted to palpation. LABORATORY DATA: On admission, the patient's hemoglobin was 9.9. She has gradually started to decline since admission from 7.8 down to 7.7 and today she is at 7, getting ready to get another unit of blood. Hematocrit is 21.7, white count is 9, platelets 229. Sodium 134, potassium 3.7, chloride 98, CO2 of 28, BUN is 62. On admission, her BUN was 36. Creatinine was 2.7 today. She was 1.4 on admission, with a GFR of 17. Glucose is 101, CRP is 39.2. PT is 9.7, INR is 1. IMPRESSION: 1. Acute anemia. 2. Epigastric pain. 3. Melenic stool. 4. Nausea. 5. History of gastric ulcer. EGD at [place] in 03/2017. 6. Chronic kidney disease. 7. Anticoagulant therapy, Plavix due to her atrial fibrillation. PLAN: 1. EGD today with Dr. Dia at 1:00. 2. Proceed with blood transfusion 1 unit. 3. Obtain medical records from her past EGD done 3 months ago at [facility]. 4. Continue her Protonix b.i.d. 5. Further recommendations to be made once the procedure has been performed. Thank you for allowing us to participate in this patient's care. Please do not hesitate to call with any questions in regard to this consult. ADDENDUM [facility] [address] [place] [address] CONSULTATION Name: CINDI PAN Room: [address] IN ..#: [id number] Admission: 07/05/17 Attend Phys: Drake Merritt, Discharge: Date of : 47 Report #: [id number] I have personally seen and examined the patient and reviewed labs and imaging studies. The patient who presented with chest pain and found to have acute over chronic anemia. She also has recent history of peptic ulcer disease as she had a gastric ulcer back in 03/2017. The patient currently on Plavix and aspirin and presents with hemoglobin of 6.1. She is status post transfusion and hemodynamically stable. She has had melanotic stool at least for several days. She does not recall when was her last colonoscopy. We will proceed with upper endoscopy and further evaluate her upper GI. If this was negative, we will consider a colonoscopy. <ELECTRONICALLY SIGNED> By: Sathish Dia MD 07/15/17 0822 1133 [id number] Dia MD /nt
[2017-07-15 08:40] VITALS: BP 150/46
--- NOTE | 2017-07-15 09:53 | CON ---
[address] [address] CONSULTATION Name: CINDI PAN Room: [address] IN [facility]#: [id number] Admission: 07/05/17 Attend Phys: Drake Merritt, Discharge: Date of : 47 Report #: [id number] THIS REPORT FOR: //name// CC: Adithya Merritt DATE OF SERVICE: 07/11/2017 REQUESTING PHYSICIAN: Dr. Campo. REASON FOR CONSULTATION: Acute kidney injury. HISTORY OF PRESENT ILLNESS: The patient is a very pleasant 72-year-old female admitted to the hospital on 07/05/2017 with complaints of left shoulder pain and elbow. Apparently, the patient fell 5 days prior to admission and she was admitted for the evaluation of this chest pain and arm pain. Her creatinine on admission was 1.4 and it stayed stable until 07/09/2017. She did have neck CT angio with contrast that was done on 07/08/2017. Creatinine went up next day, it went to 1.5, on 07/10/2017 to 2.7 and today is 3.8 and I was consulted. PAST MEDICAL HISTORY: Significant for coronary artery disease, chronic atrial fibrillation, chronic obstructive pulmonary disease, diabetes mellitus type 2, and congestive heart failure. FAMILY HISTORY: Noncontributory. SOCIAL HISTORY: No current tobacco or alcohol abuse. MEDICATIONS: Prior to admission reviewed. She was on losartan, insulin, glimepiride, iron sulfate, Lipitor, and amlodipine. Now in the hospital, she is on scopolamine patch, Protonix, Carafate, hydrocodone, Zofran, insulin, Plavix, Lipitor, amlodipine, Lopressor, insulin, and hydralazine. I did stop her Carafate today. REVIEW OF SYSTEMS: The patient complains of dysuria. She does have Nolan catheter in and she keeps complaining of left shoulder and left neck pain. She also complains of some nausea that started yesterday. PHYSICAL EXAMINATION: GENERAL: She is awake, alert. VITAL SIGNS: Blood pressure 125/48, heart rate is 60, afebrile. EYES: Her pupils are round. NECK: [place] [address] CONSULTATION Name: CINDI PAN Room: [address]#: [id number] Admission: 07/05/17 Attend Phys: Drake Merritt, Discharge: Date of : 47 Report #: [id number] LUNGS: Fairly clear to auscultation bilaterally. CARDIOVASCULAR: Irregular rate. ABDOMEN: Obese, soft, nontender, and nondistended. Nolan catheter is in place. LOWER EXTREMITIES: With trace edema. LABORATORY DATA: Serum sodium is 131, potassium 3.5, chloride 96, carbon dioxide 28, BUN 67, creatinine 3.8. Her urinalysis not done. ASSESSMENT: A 72-year-old female with acute kidney injury. It looks like acute kidney injury, most likely due to contrast nephropathy. At this point, I would like to continue with gentle hydration. Keep Nolan catheter in. Her renal ultrasound was unremarkable. I will stop her Carafate. Order urinalysis. Thank you very much for asking my opinion on acute kidney injury. <ELECTRONICALLY SIGNED> By: Jj Cleveland MD 07/15/17 0953 1635 0121Alexangeles Cleveland MD /nt
[2017-07-15 12:24] VITALS: BP 153/50; BP 161/60; BP 163/44; BP 164/58; BP 166/52
[2017-07-15 20:00] VITALS: BP 154/78
[2017-07-15 21:57] LABS: CALCIUM 8.7 mg/dL (8.5-10.1); CREATININE 1.7 mg/dL (0.6-1.3); MAGNESIUM 2.2 mg/dL (1.8-2.4); POTASSIUM 3.8 mmol/L (3.5-5.1)
[2017-07-15 23:03] VITALS: BP 152/60
[2017-07-16 04:00] VITALS: BP 163/61
[2017-07-16 05:18] LABS: ABSOLUTE BASOPHILS 0.1 thou/uL (0.0-0.2); ABSOLUTE EOSINOPHILS 0.9 thou/uL (0.0-0.7); ABSOLUTE LYMPHOCYTES 1.3 thou/uL (0.8-5.3); ABSOLUTE MONOCYTES 0.9 thou/uL (0.0-1.2); ABSOLUTE NEUTROPHILS 8.7 thou/uL (1.6-8.1); BASOPHILS 0.7 %; EOSINOPHILS 7.8 %; HEMATOCRIT 26.2 % (37.0-47.0); HEMOGLOBIN 8.5 gm/dL (12.0-15.0); LYMPHOCYTES 10.6 %; MCH 26.3 pg (26.0-34.0); MCHC 32.4 g/dL (28.0-37.0); MCV 81.1 fL (80.0-100.0); MONOCYTES 7.9 %; MPV 7.9 fl. (7.2-11.1); NUCLEATED RBCS 0 /100WBC; PLATELET COUNT* 309 thou/uL (150-400); RBC 3.24 mil/uL (4.20-5.00); RDW-CV 17.9 % (10.5-14.5); WBC 11.9 thou/uL (4.0-11.0)
[2017-07-16 05:37] LABS: CALCIUM 8.7 mg/dL (8.5-10.1); CREATININE 1.5 mg/dL (0.6-1.3); POTASSIUM 3.8 mmol/L (3.5-5.1)
[2017-07-16 08:00] VITALS: BP 166/59
--- NOTE | 2017-07-16 09:57 | EKG ---
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
[2017-07-16 11:00] VITALS: BP 116/56
--- NOTE | 2017-07-16 15:13 | EKG ---
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: RADHA ESPARZA : 1945 Requested By: Drake Merritt Order Number: [id number] Reading MD: Partha Tan Measurements Intervals [place] Rate: 77 P: 54 DE: 172 QRS: 99 QRSD: 109 T: -14 QT: 423 QTc: 479 Interpretive Statements Sinus rhythm Probable left atrial enlargement Right axis deviation Borderline T abnormalities, inferior leads Compared to ECG 07/10/2017 14:45:57 Right-axis deviation now present Electronically Signed On 07-16-2017 15:12:48 CDT by Partha Tan [email or web address] <ELECTRONICALLY SIGNED> By: Partha Tan MD, [facility] 07/16/17 1512 15 15 Partha Tan MD, [facility] /EPI
--- NOTE | 2017-07-16 15:16 | EKG ---
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[facility] [facility] : 1945 Requested By: Drake Merritt Order Number: [id number] Reading MD: Partha Tan Measurements Intervals [place] Rate: 82 P: 54 [place]: 163 QRS: 102 QRSD: 103 T: -11 QT: 395 QTc: 462 Interpretive Statements Sinus rhythm Probable left atrial enlargement Left posterior fascicular block Borderline T abnormalities, inferior leads Compared to ECG 07/15/2017 20:12:49 Atrial fibrillation no longer present T-wave abnormality still present Electronically Signed On 07-16-2017 15:15:57 CDT by Partha Tan [email or web address] <ELECTRONICALLY SIGNED> By: Partha Tan MD, [facility] 07/16/17 1515 0442 0442 Partha Tan MD, [facility] /EPI
[2017-07-16 16:00] VITALS: BP 140/71
[2017-07-16 20:46] VITALS: BP 162/67
[2017-07-17 00:35] VITALS: BP 156/53
[2017-07-17 04:28] VITALS: BP 159/61
[2017-07-17 08:00] VITALS: BP 167/65
[2017-07-17 09:10] LABS: CALCIUM 8.8 mg/dL (8.5-10.1); CREATININE 1.2 mg/dL (0.6-1.3); POTASSIUM 3.8 mmol/L (3.5-5.1)
[2017-07-17 11:48] VITALS: BP 167/65
[2017-07-17 12:00] VITALS: BP 152/56
[2017-07-17] MEDS ORDERED: CRESTOR40 MG PO (14:24)
[2017-07-17 14:47] VITALS: BP 167/65
--- NOTE | 2017-07-19 10:02 | CON ---
[address] [address] CONSULTATION Name: CINDI PAN Room: [address] IN .R.#: [id number] Admission: 07/05/17 Attend Phys: Drake Merritt, Discharge: 07/17/17 Date of : 47 Report #: [id number] THIS REPORT FOR: //name// CC: Adithya Merritt DATE OF SERVICE: 07/07/2017 REQUESTING PHYSICIAN: Dr. Drake Merritt. REASON FOR CONSULTATION: Carotid stenosis. HISTORY OF PRESENT ILLNESS: The patient is well known to me. She is a very pleasant 72-year-old white female whom I know from when she presented with ruptured, infected pseudoaneurysm of her right groin at [facility] last year. I performed emergent resection of infected pseudoaneurysm and obturator bypass. She had a prolonged recovery and extensive stay in rehab as well as extensive wound care. I am pleased to report she is fully recovered and looks really, really well. She fell recently and injured her left shoulder. She is in the hospital for chest pain workup at this time. Ultrasound of her carotid arteries was obtained due to her fall and identified a right carotid stenosis greater than 70%. She denies any signs or symptoms of TIA or stroke including unilateral weakness, dysarthria or amaurosis fugax. REVIEW OF SYSTEMS: A 12-point review of systems is reviewed and negative as per HPI. PAST MEDICAL HISTORY: Significant for atrial fibrillation, anemia, coronary artery disease, congestive heart failure, COPD, diabetes, dyslipidemia, GERD, GI bleeding, hypertension and hyperlipidemia. PAST SURGICAL HISTORY: Significant for coronary artery bypass graft, coronary artery stenting, extensive revascularization of the right lower extremity including obturator bypass by me. SOCIAL HISTORY: The patient denies alcohol, tobacco or drug use. ALLERGIES: INCLUDE CODEINE. PHYSICAL EXAMINATION: GENERAL: The patient in no distress. She is alert and oriented. VITAL SIGNS: Afebrile, vital signs stable. HEENT: Normocephalic and atraumatic. NECK: Supple. HEART: [place] [address] CONSULTATION Name: CINDI PAN Room: [address] IN [facility]#: [id number] Admission: 07/05/17 Attend Phys: Drake Merritt, Discharge: 07/17/17 Date of : 47 Report #: [id number] ABDOMEN: Soft, nontender and nondistended. EXTREMITIES: Warm and well perfused. Her right groin is now well healed. NEUROLOGIC: Grossly intact. Normal motor and sensory function. Cranial nerves 2-12 are intact. I reviewed her ultrasound and agree that she likely has greater than 70% stenosis may be closer to 90 based on the elevated diastolic velocity. I would like to obtain a CT angiogram to evaluate this further. ASSESSMENT: Asymptomatic right internal carotid artery stenosis. PLAN: 1. We will obtain CT angiogram. 2. The patient will likely require right carotid endarterectomy electively once her cardiac workup has been completed and is negative. Thank you very much for allowing us in the care of this very pleasant patient. Please feel free to call me if any questions or concerns about assessment and plan. <ELECTRONICALLY SIGNED> By: Olu Chun MD 07/19/17 1002 0650 0836Olu Chun MD /nt
== END 2017-07-17 15:45 | disposition home health service (06) | DRG 377 ==
LOC: M.ERS 09:45 → M.2W 11:18 → M.TBA-ER 11:18 → M.2W 15:48 → M.ORTHSURG 07-14 12:10 → M.2W 07-15 20:36
PROVIDERS: Emergency Medicine Emergency Medical Services; Internal Medicine; Internal Medicine Gastroenterology; Internal Medicine Nephrology; Nurse Practitioner Adult Health; Surgery Vascular Surgery; ADMIT Family Medicine
PROC: 0W3P8ZZ Control Bleeding in Gastrointestinal Tract, Via Natural or Artificial Opening Endoscopic (ICD-10-PCS; principal; 2017-07-10)
PROC: 30233N1 Transfusion of Nonautologous Red Blood Cells into Peripheral Vein, Percutaneous Approach (ICD-10-PCS; principal; 2017-07-10)
DX: K25.4 Chronic or unspecified gastric ulcer with hemorrhage (principal); N17.0 Acute kidney failure with tubular necrosis; D62 Acute posthemorrhagic anemia; I13.0 Hypertensive heart and chronic kidney disease with heart failure and stage 1 through stage 4 chronic kidney disease, or unspecified chronic kidney disease; I65.21 Occlusion and stenosis of right carotid artery; J44.9 Chronic obstructive pulmonary disease, unspecified; I48.91 Unspecified atrial fibrillation; K21.9 Gastro-esophageal reflux disease without esophagitis; I25.10 Atherosclerotic heart disease of native coronary artery without angina pectoris; E11.51 Type 2 diabetes mellitus with diabetic peripheral angiopathy without gangrene; E78.5 Hyperlipidemia, unspecified; E11.22 Type 2 diabetes mellitus with diabetic chronic kidney disease; N18.9 Chronic kidney disease, unspecified; M19.012 Primary osteoarthritis, left shoulder; K29.71 Gastritis, unspecified, with bleeding; K44.9 Diaphragmatic hernia without obstruction or gangrene; I50.9 Heart failure, unspecified; Z87.01 Personal history of pneumonia (recurrent); I25.2 Old myocardial infarction; Z95.818 Presence of other cardiac implants and grafts; Z79.2 Long term (current) use of antibiotics; Z79.4 Long term (current) use of insulin; Z79.899 Other long term (current) drug therapy; Z88.5 Allergy status to narcotic agent; Z90.710 Acquired absence of both cervix and uterus; Z98.49 Cataract extraction status, unspecified eye; Z82.49 Family history of ischemic heart disease and other diseases of the circulatory system; Z87.11 Personal history of peptic ulcer disease

== ENCOUNTER 2017-08-01 16:04 | Emergency (ER) | payer MEDICARE, OTHER ==
[~2017-08-01] VITALS: Ht 165.1 cm; Wt 80.7 kg
[2017-08-01 18:04] VITALS: BP 140/76
== END 2017-08-01 18:05 | disposition home or self-care (01) ==
LOC: M.ERS 16:04
DX: M25.562 Pain in left knee (principal); I50.9 Heart failure, unspecified; J44.9 Chronic obstructive pulmonary disease, unspecified; I48.91 Unspecified atrial fibrillation; E11.9 Type 2 diabetes mellitus without complications; I25.2 Old myocardial infarction; Z95.811 Presence of heart assist device; Z88.5 Allergy status to narcotic agent

== ENCOUNTER 2017-08-04 22:31 | Inpatient (IN) | payer MEDICARE, OTHER ==
[~2017-08-04] VITALS: Ht 165.1 cm; Wt 83.2 kg
[2017-08-04 22:36] VITALS: BP 172/60
[2017-08-04 22:51] LABS: ABSOLUTE BASOPHILS 0.1 thou/uL (0.0-0.2); ABSOLUTE EOSINOPHILS 0.7 thou/uL (0.0-0.7); ABSOLUTE LYMPHOCYTES 0.9 thou/uL (0.8-5.3); ABSOLUTE MONOCYTES 0.5 thou/uL (0.0-1.2); ABSOLUTE NEUTROPHILS 6.3 thou/uL (1.6-8.1); BASOPHILS 0.7 %; EOSINOPHILS 7.7 %; HEMATOCRIT 29.1 % (37.0-47.0); HEMOGLOBIN 9.3 gm/dL (12.0-15.0); MCH 25.3 pg (26.0-34.0); MONOCYTES 6.2 %; MPV 7.7 fl. (7.2-11.1); NUCLEATED RBCS 0 /100WBC; PLATELET COUNT* 334 thou/uL (150-400); POLYS 74.4 %; RBC 3.68 mil/uL (4.20-5.00); RDW-CV 18.6 % (10.5-14.5); WBC 8.5 thou/uL (4.0-11.0)
[2017-08-04 23:01] LABS: ANION GAP 6 mmol/L (7-16); BUN 36 mg/dL (7-18); CALCIUM 9.3 mg/dL (8.5-10.1); CHLORIDE 100 mmol/L (98-107); CO2 31 mmol/L (21-32); CREATININE 1.3 mg/dL (0.6-1.3); GLUCOSE 179 mg/dL (70-99); POTASSIUM 3.7 mmol/L (3.5-5.1); SODIUM 137 mmol/L (136-145)
[2017-08-04 23:04] LABS: PROTIME 10.1 Seconds (9.20-11.50)
[2017-08-04 23:12] LABS: ALKALINE PHOSPHATASE 104 U/L (46-116); LIPASE 79 U/L (73-393); NT-PRO BRAIN NAT PEPTIDE 3420 pg/mL (<300); SGOT 11 U/L (15-37); SGPT 21 U/L (30-65); TOTAL BILIRUBIN 0.2 mg/dL (<0.1-1.0); TOTAL PROTEIN 7.4 g/dL (6.4-8.2); TROPONIN-I LEVEL <0.06 ng/mL (<0.06)
[2017-08-05 02:39] LABS: URINE BILIRUBIN NEGATIVE (Negative); URINE BLOOD NEGATIVE (Negative); URINE CLARITY CLEAR; URINE COLOR YELLOW; URINE GLUCOSE-RANDOM NEGATIVE (Negative); URINE KETONES NEGATIVE (Negative); URINE LEUKOCYTES-REFLEX NEGATIVE (Negative); URINE NITRITE-REFLEX POSITIVE (Negative); URINE PROTEIN 3+ (Negative); URINE UROBILINOGEN 0.2 E.U./dl (0.2-1.0)
[2017-08-05 02:53] LABS: BACTERIA-REFLEX >30 Many /HPF (None Seen); CASTS None Seen /LPF (None Seen); CRYSTALS None Seen /LPF (None Seen); MUCUS 0-3 Light strn/LPF (None Seen); SQUAMOUS 0-3 Few /LPF (0-3); URINE RBC 0-2 Rare /HPF (0-2); URINE WBC-REFLEX >25 Many /HPF (0-5); WBC CLUMPS Moderate (None Seen)
[2017-08-05 03:05] VITALS: BP 156/57
[2017-08-05] MEDS ORDERED: TOUJEO SOL300 UNIT/1 SUBQ (05:51)
[2017-08-05] MEDS ORDERED: AMARYL4 MG PO (05:52)
[2017-08-05 07:45] VITALS: BP 150/54
[2017-08-05 16:00] VITALS: BP 153/56
--- NOTE | 2017-08-05 18:43 | EKG ---
[place] [address] ELECTROCARDIOGRAM REPORT Name: CINDI PAN Room: [address] IN [facility]#: [id number] Admission: 08/05/17 Attend Phys: Markus Campo MD Discharge: Date of : 47 Report #: [id number] THIS REPORT FOR: //name// [facility] Test Date: 2017-08-04 Test Time: 22:44:09 Pat Name: CINDI PAN Department: Room: Gender: F Information Services Consultant: CAROL : 1945 Requested By: Clemencia Back Order Number: [id number] MD: Ryan Jolly Measurements Intervals [place] Rate: 67 P: 41 [place]: 161 QRS: 90 QRSD: 108 T: -16 QT: 494 QTc: 522 Interpretive Statements Sinus rhythm Probable left atrial enlargement Left posterior fascicular block Borderline T abnormalities, inferior leads Prolonged QT interval Compared to ECG 07/16/2017 04:42:45 Prolonged QT interval now present T-wave abnormality still present Electronically Signed On 08-05-2017 18:42:57 CDT by Ryan Jolly [email or web address] <ELECTRONICALLY SIGNED> By: Ryan Jolly MD, [facility] 08/05/17 1842 2244 Ryan Jolly MD, [facility] /EPI
[2017-08-05 21:20] VITALS: BP 139/48
[2017-08-06 07:40] VITALS: BP 141/44
[2017-08-06 09:21] LABS: CALCIUM 8.9 mg/dL (8.5-10.1); CREATININE 1.2 mg/dL (0.6-1.3); POTASSIUM 3.8 mmol/L (3.5-5.1)
[2017-08-06 14:06] VITALS: BP 136/51
[2017-08-06 16:00] VITALS: BP 142/88
[2017-08-06 16:08] LABS: COMPLEMENT-C4 32 mg/dL (14-44)
[2017-08-06 21:00] VITALS: BP 150/53
[2017-08-07 00:10] VITALS: BP 130/46
[2017-08-07 08:00] VITALS: BP 136/49
--- NOTE | 2017-08-07 12:19 | CON ---
[address] [address] CONSULTATION Name: CINDI PAN Room: [address] IN .R.#: [id number] Admission: 08/05/17 Attend Phys: Markus Campo MD Discharge: Date of : 49 Report #: [id number] THIS REPORT FOR: //name// [facility] DATE OF SERVICE: 08/06/2017 REQUESTING PHYSICIAN: Dr. Burdick. REASON FOR CONSULTATION: Proteinuria. HISTORY OF PRESENT ILLNESS: The patient is a very pleasant 72-year-old female who is very well known to us, has been followed by Dr. 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 She was admitted to the hospital with complaints of left shoulder pain and some swelling over the left arm. She also had some intermittent pain, some vomiting, she could not keep anything down and that is why she was admitted to the hospital. PAST MEDICAL HISTORY: 1. Diabetes mellitus type 2. 2. Diabetic nephropathy with chronic kidney disease stage 3. 3. History of chest pain. 4. History of cellulitis. 5. History of coronary artery disease. 6. Chronic obstructive pulmonary disease. 7. Morbid obesity. 8. Hypertension. 9. Hyperlipidemia. FAMILY HISTORY: Noncontributory. SOCIAL HISTORY: No tobacco or alcohol abuse. MEDICATIONS: Reviewed. REVIEW OF SYSTEMS: Positive for the symptoms as mentioned earlier, otherwise negative. PHYSICAL EXAMINATION: GENERAL: Awake, alert, oriented, very pleasant lady, no acute distress. VITAL SIGNS: Blood pressure 141/44, heart rate 71, afebrile. HEENT: Pupils are round. NECK: [place] [address] CONSULTATION Name: PANCINDI RIVERA Asha Room: [address] IN [facility]#: [id number] Admission: 08/05/17 Attend Phys: Markus Campo MD Discharge: Date of : 47 Report #: [id number] LUNGS: Clear. CARDIOVASCULAR: Irregular rate. ABDOMEN: Soft. LOWER EXTREMITIES: No edema. LABORATORY DATA: Lab report revealed serum sodium of 137, potassium 3, chloride 100, carbon dioxide 32, BUN 26, creatinine 1.2. She had some proteinuria, 2+ protein. ASSESSMENT: 1. A 72-year-old female with known diabetic nephropathy. Most likely, her proteinuria is due to diabetic nephropathy. I would not do any further workup at this point. She will follow with Dr. Shrestha in the office. 2. Hypertension. 3. Diabetes mellitus type 2. 4. Some swelling of her left arm, which is resolving. Thank you very much for asking my opinion on proteinuria on the patient. Please call if you have any questions. <ELECTRONICALLY SIGNED> By: Jj Cleveland MD 08/07/17 1219 1210 [id number] rolando Morse
[2017-08-07 15:00] LABS: CALCIUM 9.5 mg/dL (8.5-10.1); CREATININE 1.7 mg/dL (0.6-1.3); POTASSIUM 4.2 mmol/L (3.5-5.1); TOTAL BILIRUBIN 0.2 mg/dL (<0.1-1.0); TOTAL PROTEIN 7.5 g/dL (6.4-8.2)
[2017-08-07 16:04] VITALS: BP 135/46
[2017-08-07 20:00] VITALS: BP 162/56
[2017-08-07 23:52] VITALS: BP 138/50
[2017-08-08 09:00] VITALS: BP 153/48
[2017-08-08 15:53] VITALS: BP 153/50
[2017-08-08 19:09] LABS: ANA INTERPRETATION Negative (())
[2017-08-08 20:30] VITALS: BP 154/56
[2017-08-08 21:07] LABS: CALCIUM 8.7 mg/dL (8.5-10.1); CREATININE 1.5 mg/dL (0.6-1.3)
[2017-08-09 07:45] VITALS: BP 148/50
--- NOTE | 2017-08-09 13:58 | EKG ---
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 : 1945 Requested By: Markus Campo Order Number: [id number] Reading MD: Partha Tan Measurements Intervals [place] Rate: 66 P: 52 TN: 179 QRS: 96 QRSD: 103 T: -38 QT: 458 QTc: 480 Interpretive Statements Sinus arrhythmia Probable left atrial enlargement Right axis deviation Borderline T abnormalities, diffuse leads Borderline prolonged QT interval Baseline wander in lead(s) V2 Compared to ECG 08/04/2017 22:44:09 no change Electronically Signed On 08-09-2017 13:57:57 CDT by Partha Tan [email or web address] <ELECTRONICALLY SIGNED> By: Partha aTn MD, [facility] 08/09/17 1357 9719 8269 Partha Tan MD, [facility] /EPI
--- NOTE | 2017-08-09 13:59 | EKG ---
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
[2017-08-09 15:40] VITALS: BP 138/58
[2017-08-09 19:35] VITALS: BP 146/56
[2017-08-10 08:00] VITALS: BP 169/91
[2017-08-10 12:00] VITALS: BP 140/86
[2017-08-10 13:50] LABS: HEMATOCRIT 27.8 % (37.0-47.0); HEMOGLOBIN 8.8 gm/dL (12.0-15.0); MCH 25.1 pg (26.0-34.0); MCHC 31.5 g/dL (28.0-37.0); MCV 79.8 fL (80.0-100.0); MPV 7.9 fl. (7.2-11.1); NUCLEATED RBCS 0 /100WBC; PLATELET COUNT* 280 thou/uL (150-400); RBC 3.49 mil/uL (4.20-5.00); RDW-CV 18.7 % (10.5-14.5); WBC 8.8 thou/uL (4.0-11.0)
[2017-08-10 14:03] LABS: ALBUMIN 2.8 g/dL (3.4-5.0); CALCIUM 9.3 mg/dL (8.5-10.1); CREATININE 1.3 mg/dL (0.6-1.3); POTASSIUM 4.6 mmol/L (3.5-5.1); TOTAL BILIRUBIN 0.2 mg/dL (<0.1-1.0)
[2017-08-10 14:12] LABS: ABSOLUTE EOSINOPHILS 0.2 thou/uL (0.0-0.7); ABSOLUTE LYMPHOCYTES 0.5 thou/uL (0.8-5.3); ABSOLUTE MONOCYTES 0.7 thou/uL (0.0-1.2); ABSOLUTE NEUTROPHILS 7.4 thou/uL (1.6-8.1); PLATELET ESTIMATE ADEQUATE
[2017-08-10 14:13] LABS: ANISOCYTOSIS 1+; POLYCHROMASIA 1+; SCHISTOCYTES Occasional
[2017-08-10 16:59] VITALS: BP 128/48
[2017-08-10 21:00] VITALS: BP 165/70
[2017-08-10 23:57] VITALS: BP 149/58
[2017-08-11 04:00] VITALS: BP 154/51
[2017-08-11 08:00] VITALS: BP 160/51
[2017-08-11 13:09] VITALS: BP 154/54
[2017-08-11 16:26] VITALS: BP 149/45
[2017-08-11 20:00] VITALS: BP 160/45
[2017-08-12] VITALS: BP 150/45
[2017-08-12 04:00] VITALS: BP 179/58
[2017-08-12 04:14] LABS: HEMATOCRIT 29.6 % (37.0-47.0); HEMOGLOBIN 9.1 gm/dL (12.0-15.0); MCH 24.5 pg (26.0-34.0); MCHC 30.6 g/dL (28.0-37.0); MCV 80.2 fL (80.0-100.0); MPV 8.3 fl. (7.2-11.1); RBC 3.69 mil/uL (4.20-5.00); RDW-CV 18.4 % (10.5-14.5)
[2017-08-12 04:39] LABS: CALCIUM 9.9 mg/dL (8.5-10.1); CREATININE 1.1 mg/dL (0.6-1.3); MAGNESIUM 2.4 mg/dL (1.8-2.4); POTASSIUM 4.6 mmol/L (3.5-5.1); TOTAL BILIRUBIN 0.2 mg/dL (<0.1-1.0); TOTAL PROTEIN 6.9 g/dL (6.4-8.2)
[2017-08-12 09:00] VITALS: BP 165/53
[2017-08-12 11:37] VITALS: BP 146/46
[2017-08-12 16:48] VITALS: BP 157/52
--- NOTE | 2017-08-12 18:49 | CON ---
[address] [address] CONSULTATION Name: VIVIANECINDI Asha Room: [address] IN M.R.#: [id number] Admission: 08/05/17 Attend Phys: Markus Campo MD Discharge: Date of : 49 Report #: [id number] THIS REPORT FOR: //name// CC: Markus Braga ____ ____ DATE OF SERVICE: 08/08/2017 ADDENDUM REFERRING PHYSICIAN: Markus Campo MD I have seen and examined the patient and agree with the plans that are outlined by our nurse practitioner, Chelsea Delgado. The patient has already had her gastric emptying scan, which revealed no evidence for gastroparesis or tachygastria. In talking with the patient, her symptoms sound more like vertigo than they do having related to her GI tract. She states she has had some problem with dizziness and when she gets dizzy and has vertigo, she will have nausea and vomiting. For this reason, we can continue with her scopolamine or she could try some meclizine on a p.r.n. basis. I have no plans for her to undergo any endoscopic studies. She will need to continue with her Protonix to help with her complicated peptic ulcer and also the iron to build her blood counts back up. We will hold off on any endoscopic studies and follow up with her expectantly. Once she is able to tolerate, eat and drink then she should be able to go home. <ELECTRONICALLY SIGNED> By: Randy Goss DO 08/12/17 1849 1644 [id number] Goss DO /nt
--- NOTE | 2017-08-12 18:49 | CON ---
[facility] [address] [place] [address] CONSULTATION Name: CINDI PAN Room: [address] IN .R.#: [id number] Admission: 08/05/17 Attend Phys: Markus Campo MD Discharge: Date of : 49 Report #: [id number] THIS REPORT FOR: //name// CC: Markus Braga MD ____ ____ DICTATED BY: Chelsea Delgado [facility] DATE OF SERVICE: 08/08/2017 Please note at the time of this dictation, the patient was seen and physically examined by myself. REASON FOR CONSULTATION: Nausea and vomiting. HISTORY OF PRESENT ILLNESS: This 72-year-old female who was just recently discharged from the hospital and was seen by our group for hematemesis and acute anemia. She underwent an EGD by Dr. Dia at that time and was noted to have gastritis and she had a gastric ulcer that was spurting blood in which a clip was placed. She was placed on Protonix b.i.d. and Carafate before meals and at bedtime and has been doing very well with that since. She was not complaining of any further nausea or vomiting and labs were trending upwards. She was sent home. The patient states that she has been having some arm and shoulder discomfort that got worse and into her elbow and wrist and now she states her knees and lower extremities are hurting. She was having some episodes she said off and on with some nausea and vomiting while at home. Some of it was associated with taking her pain medicine, but she denied any bright red blood or any coffee ground emesis with any of her episodes. She does complain of a fullness feeling and getting frequently and not very hungry and also complains of this ongoing nausea. Her last episode of nausea and vomiting was after returning from her ultrasound and again was negative for any bright red blood or any coffee ground emesis. ALLERGIES: CODEINE. HOME MEDICATIONS: Include Amaryl, Carafate, Lasix, ferrous sulfate, amiodarone, Ultram, omeprazole, hydralazine, Cozaar, Neurontin, Plavix and Lopressor. PAST MEDICAL HISTORY: Congestive heart failure, COPD, history of AFib, pneumonia, diabetes, [place] x 3. PAST SURGICAL HISTORY: Cardiac stents, right femoral artery replaced. FAMILY HISTORY: [place] [address] CONSULTATION Name: CINDI PAN Room: [address] IN [facility]#: [id number] Admission: 08/05/17 Attend Phys: Markus Campo MD Discharge: Date of : 49 Report #: [id number] SOCIAL HISTORY: Denies any alcohol, tobacco or illegal drug use. REVIEW OF SYSTEMS: Twelve-point review of systems is essentially negative except what is mentioned in the HPI. PHYSICAL EXAMINATION: VITAL SIGNS: Temperature 37.1, pulse 73, respirations 15, blood pressure 153/45. HEART: Regular rate and rhythm. LUNGS: Diminished, but clear. ABDOMEN: Soft, positive bowel sounds in all 4 quadrants with no masses or tenderness noted. LABORATORY DATA: Hemoglobin 9.3, hematocrit 29.1, white count is 8.5, platelets 334. PT 10.1, INR is 1. Sodium 135, potassium 4.2, chloride 97, CO2 of 31, BUN is 38, creatinine 1.7, GFR is 30 and glucose is 207. Ultrasound of the abdomen shows mild hepatomegaly, otherwise negative. IMPRESSION: 1. Nausea and vomiting. 2. Early satiety. 3. History of gastritis and a gastric ulcer that was clipped on 07/05/[address] Dia. 4. Diabetic. 5. Anticoagulant therapy secondary to atrial fibrillation, Plavix. PLAN: 1. GET 4 hour. 2. Scopolamine patch. 3. Continue Protonix b.i.d. and Carafate before meals t.i.d. 4. Further recommendations to be made once the above have been noted. Thank you for allowing us to participate in this patient's care. Please do not hesitate to call with any questions in regard to this consult. ADDENDUM I have seen and examined the patient and agree with the plans that are outlined by our nurse practitioner, Chelsea Delgado. The patient has already had her gastric emptying scan, which revealed no evidence for gastroparesis or tachygastria. On talking with the patient, her symptoms sound more like vertigo than they do having related to her GI tract. She states she has had some problem with dizziness and when she gets dizzy and has vertigo, she will have nausea and vomiting. For this reason, we can continue with her scopolamine or she could try some meclizine on a p.r.n. basis. I have no plans for her to [address] [address] CONSULTATION Name: CINDI PAN Room: [address] IN .R.#: [id number] Admission: 08/05/17 Attend Phys: Markus Campo MD Discharge: Date of : 49 Report #: [id number] undergo any endoscopic studies. She will need to continue with her Protonix to help with her complicated peptic ulcer and also the iron to build her blood counts back up. We will hold off on any endoscopic studies and follow up with her expectantly. Once she is able to tolerate, eat and drink then she should be able to go home. <ELECTRONICALLY SIGNED> By: Randy Goss DO 08/12/17 1849 1121 [id number] Goss DO /nt
[2017-08-13 00:17] VITALS: BP 148/42
[2017-08-13 04:35] VITALS: BP 163/56
[2017-08-13 06:56] LABS: HEMATOCRIT 27.9 % (37.0-47.0); HEMOGLOBIN 8.7 gm/dL (12.0-15.0); MCH 24.9 pg (26.0-34.0); MCHC 31.3 g/dL (28.0-37.0); MCV 79.6 fL (80.0-100.0); MPV 7.9 fl. (7.2-11.1); RBC 3.51 mil/uL (4.20-5.00); RDW-CV 18.4 % (10.5-14.5); WBC 10.8 thou/uL (4.0-11.0)
[2017-08-13 07:06] LABS: ALBUMIN 2.7 g/dL (3.4-5.0); CALCIUM 9.5 mg/dL (8.5-10.1); CREATININE 1.1 mg/dL (0.6-1.3); TOTAL BILIRUBIN 0.2 mg/dL (<0.1-1.0); TOTAL PROTEIN 6.9 g/dL (6.4-8.2)
[2017-08-13 08:05] VITALS: BP 169/71
[2017-08-13 11:49] VITALS: BP 146/44
[2017-08-13 15:23] VITALS: BP 166/55
[2017-08-13 20:00] VITALS: BP 152/53
[2017-08-14] VITALS (7 sets, daily range): BP systolic 155–173; BP diastolic 46–63
[2017-08-14 04:46] LABS: HEMOGLOBIN 8.5 gm/dL (12.0-15.0); MCH 24.8 pg (26.0-34.0); MCHC 31.5 g/dL (28.0-37.0); MCV 78.8 fL (80.0-100.0); MPV 8.3 fl. (7.2-11.1); RBC 3.42 mil/uL (4.20-5.00); RDW-CV 18.1 % (10.5-14.5); WBC 9.4 thou/uL (4.0-11.0)
[2017-08-14 05:02] LABS: ALBUMIN 2.6 g/dL (3.4-5.0); CALCIUM 9.5 mg/dL (8.5-10.1); CREATININE 1.2 mg/dL (0.6-1.3); TOTAL BILIRUBIN 0.2 mg/dL (<0.1-1.0); TOTAL PROTEIN 6.9 g/dL (6.4-8.2)
[2017-08-14 05:10] LABS: PREALBUMIN 16.8 mg/dL (18.0-35.7)
[2017-08-14 09:19] LABS: % SATURATION 7 % (20-39); IRON 18 ug/dL (50-175)
[2017-08-15 04:15] LABS: HEMATOCRIT 26.5 % (37.0-47.0); HEMOGLOBIN 8.4 gm/dL (12.0-15.0); MCH 24.9 pg (26.0-34.0); MCHC 31.8 g/dL (28.0-37.0); MCV 78.3 fL (80.0-100.0); MPV 8.2 fl. (7.2-11.1); RBC 3.38 mil/uL (4.20-5.00); RDW-CV 18.6 % (10.5-14.5); WBC 10.1 thou/uL (4.0-11.0)
[2017-08-15 04:26] LABS: ALBUMIN 2.6 g/dL (3.4-5.0); CALCIUM 8.9 mg/dL (8.5-10.1); CREATININE 1.2 mg/dL (0.6-1.3); MAGNESIUM 1.9 mg/dL (1.8-2.4); TOTAL BILIRUBIN 0.2 mg/dL (<0.1-1.0); TOTAL PROTEIN 6.8 g/dL (6.4-8.2)
[2017-08-15 04:27] VITALS: BP 167/54
[2017-08-15 08:00] VITALS: BP 168/54
[2017-08-15 11:41] VITALS: BP 147/52
[2017-08-15 14:03] VITALS: BP 162/58
[2017-08-15 16:13] LABS: IgA 363 mg/dL (87-352); IgG 796 mg/dL (700-1600); IgM 238 mg/dL (26-217)
[2017-08-15 20:25] VITALS: BP 166/59
[2017-08-16] VITALS (11 sets, daily range): BP systolic 108–179; BP diastolic 49–67
[2017-08-16 04:54] LABS: HEMATOCRIT 27.9 % (37.0-47.0); HEMOGLOBIN 9.1 gm/dL (12.0-15.0); MCH 25.9 pg (26.0-34.0); MCHC 32.6 g/dL (28.0-37.0); MCV 79.3 fL (80.0-100.0); MPV 8.1 fl. (7.2-11.1); RBC 3.52 mil/uL (4.20-5.00); RDW-CV 18.4 % (10.5-14.5); WBC 9.4 thou/uL (4.0-11.0)
[2017-08-16 05:23] LABS: ALBUMIN 2.8 g/dL (3.4-5.0); CALCIUM 9.3 mg/dL (8.5-10.1); CREATININE 1.2 mg/dL (0.6-1.3); POTASSIUM 3.8 mmol/L (3.5-5.1); TOTAL BILIRUBIN 0.2 mg/dL (<0.1-1.0)
[2017-08-16 14:10] LABS: KAPPA FREE LIGHT CHAINS 50.7 mg/L (3.3-19.4); LAMBDA FREE LIGHT CHAINS 48.8 mg/L (5.7-26.3)
[2017-08-16 14:42] LABS: BE 11.8 mmol/L (-2 to +3); PO2 84.1 mmHg (75.0-100.0); pH 7.366 (7.340-7.450)
[2017-08-16 14:45] LABS: PCO2 69.7 mmHg (35.0-45.0)
[2017-08-17] VITALS: BP 135/52
[2017-08-17 01:10] LABS: HEMATOCRIT 27.1 % (37.0-47.0); HEMOGLOBIN 8.5 gm/dL (12.0-15.0); MCH 24.8 pg (26.0-34.0); MCHC 31.5 g/dL (28.0-37.0); MCV 78.5 fL (80.0-100.0); MPV 7.8 fl. (7.2-11.1); RBC 3.45 mil/uL (4.20-5.00); RDW-CV 18.5 % (10.5-14.5)
[2017-08-17 01:35] VITALS: BP 126/63
[2017-08-17 01:39] LABS: CALCIUM 9.1 mg/dL (8.5-10.1); CREATININE 1.2 mg/dL (0.6-1.3); POTASSIUM 3.5 mmol/L (3.5-5.1)
[2017-08-17 07:01] VITALS: BP 129/55
[2017-08-17 08:00] VITALS: BP 138/62
[2017-08-17 12:00] VITALS: BP 134/46
[2017-08-17 16:00] VITALS: BP 132/58
[2017-08-18] VITALS (7 sets, daily range): BP systolic 98–196; BP diastolic 53–73
[2017-08-18 03:16] LABS: BE 10.7 mmol/L (-2 to +3)
[2017-08-18 03:21] LABS: PCO2 86.6 mmHg (35.0-45.0); pH 7.282 (7.340-7.450)
--- NOTE | 2017-08-18 07:46 | CON ---
[address] [address] CONSULTATION Name: CINDI PAN Room: [address] IN .R.#: [id number] Admission: 08/05/17 Attend Phys: Markus Campo MD Discharge: Date of : 49 Report #: [id number] THIS REPORT FOR: //name// CC: Markus Campo [facility] DATE OF SERVICE: 08/17/2017 REFERRING PHYSICIAN: Markus Campo MD CHIEF COMPLAINT: Dyspnea. HISTORY OF PRESENT ILLNESS: The patient is a 72-year-old female who was admitted on the above date with abdominal discomfort, nausea, vomiting. She has been here since admission about 12 days or so. Currently, she does have shortness of breath, but this is more so on a chronic basis. According to the patient, her GI symptoms have never really resolved, she has not had any bloody secretions. She denies cough, phlegm production, fever or chills. She is on chronic oxygen therapy at home at 2 liters. According to the patient, she sees in the office, saw him about 2 months ago. She is on chronic oxygen therapy, but is unable to tell me exactly what other medications she is on at this time. PAST MEDICAL HISTORY: Significant for gastroesophageal reflux disorder, atrial fibrillation, history of congestive failure. She was recently hospitalized at [facility] in [place] here on 07/05/2017, discharged on 07/17/2017 with a discharge diagnosis of acute GI bleed. Interestingly, she was unable to provide me with any information from that, I was able to obtain this information from the medical records. Past medical history is significant for chronic kidney disease, congestive failure, GI bleed, chronic obstructive airways disease, chronic atrial fibrillation, peripheral vascular disease. She has a history of low iron and has been getting infusions. In addition, chronic kidney disease. SOCIAL HISTORY: She lives by herself. She is a prior smoker. She quit in 1997. ALLERGIES: SHE IS ALLERGIC TO CODEINE. FAMILY HISTORY: Noncontributory. REVIEW OF SYSTEMS: System review negative other than what is outlined above. PHYSICAL EXAMINATION: CURRENT VITAL SIGNS: Blood pressure 129/55, respiratory rate 20 and nonlabored, [place] [address] CONSULTATION Name: CINDI PAN Room: [address]#: [id number] Admission: 08/05/17 Attend Phys: Markus Campo MD Discharge: Date of : 47 Report #: [id number] pulse 95 and irregular, temperature 98 degrees. On 08/13/2017, her weight was 183 pounds. GENERAL APPEARANCE: Awake, alert, oriented. She is not in any respiratory distress, not using accessory muscles. She is on O2 at 2 liters. HEENT: Head atraumatic. Eyes: Pupils are round and equal, reactive. Sclerae and conjunctivae are clear. Oral cavity moist. NECK: No adenopathy. CHEST: Coarse breath sounds throughout. No audible wheezes, rales or rhonchi. CARDIOVASCULAR: Reveals irregular rhythm. She has a very soft 2/6 systolic murmur. ABDOMEN: Obese without organomegaly. EXTREMITIES: There is no evidence of edema or clubbing. No cyanosis. SKIN: Warm and dry. Tattoo on her right upper chest. NEUROLOGIC: Moves all 4 extremities. Strength equal bilaterally. LABORATORY DATA: Sodium 138, potassium 3.5, chloride 99, CO2 of 38, BUN of 21, creatinine 1.2. ProBNP 12,707. This is a significant jump in her proBNP when compared to the one on 08/04/2017 at which time it was 3420. Hemoglobin and hematocrit are 8.5 and 27 with a white count of 11,000, platelet count 277,000. On 08/16/2017, arterial blood gas obtained on 5 liters, pH 7.37, pCO2 of 70, pO2 of 84, bicarbonate at 39. Chest x-ray on 08/16/2017 revealed cardiomegaly, vascular congestion, no acute infiltrates. A CTA of the chest did not reveal any evidence of pulmonary emboli. There was no evidence of adenopathy in the mediastinum or hilum, small effusions bilaterally. There is an enlarged thyroid extending down into the anterior mediastinum measuring 3.4 x 3.5 cm in diameter. An ultrasound of the thyroid gland reveals a large, slightly heterogeneous mass in the midline of the thyroid gland, extending caudally posterior to the manubrium into the anterior/superior mediastinum. ASSESSMENT: 1. Severe chronic obstructive airways disease. 2. Oxygen-dependent chronic obstructive pulmonary disease. 3. Chronic hypercapnia. 4. Fluid overload as noted by an elevated proBNP. This could be an indirect reflection of fluid overload state. We will repeat an arterial blood gas in the a.m. and continue with aerosol treatments and aspiration precautions. 5. Anemia. Reviewing additional medical record, she had an echocardiogram performed on 07/05/2017. Study revealed an estimated left ventricular ejection fraction of [facility] [address] [place] [address] CONSULTATION Name: CINDI PAN Room: [address]#: [id number] Admission: 08/05/17 Attend Phys: Markus Campo MD Discharge: Date of : 47 Report #: [id number] 55-60%. No evidence of aortic stenosis, no evidence of pulmonary valve regurgitation. <ELECTRONICALLY SIGNED> By: Luis Angel Cyr MD 08/18/17 0746 0848 1452Altrinity Cyr MD /nt
--- NOTE | 2017-08-18 14:40 | EKG ---
[place] [address] ELECTROCARDIOGRAM REPORT Name: CINDI PAN Room: [address] ADM IN .R.#: [id number] Admission: 08/05/17 Attend Phys: Markus Campo MD Discharge: Date of : 47 Report #: [id number] THIS REPORT FOR: //name// 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 : 1945 Requested By: Markus Campo Order Number: [id number] Reading MD: John Castro Measurements Intervals [place] Rate: 133 P: [place]: QRS: 121 QRSD: 100 T: -57 QT: 321 QTc: 478 Interpretive Statements Atrial fibrillation with rapid ventricular response Right axis deviation Borderline repolarization abnormality Borderline prolonged QT interval Compared to ECG 08/09/2017 00:00:38 Sinus rhythm no longer present T-wave abnormality no longer present Electronically Signed On 08-18-2017 14:40:26 CDT by John Castro [email or web address] <ELECTRONICALLY SIGNED> By: John Castro MD, FACC 08/18/17 1440 28 28 John Castro MD, [facility] /EPI
[2017-08-19 04:22] VITALS: BP 164/50
[2017-08-19 05:39] LABS: BE 15.3 mmol/L (-2 to +3); PO2 78.8 mmHg (75.0-100.0); pH 7.374 (7.340-7.450)
[2017-08-19 05:42] LABS: HCO3 42.9 mmol/L (22.0-26.0); PCO2 75.2 mmHg (35.0-45.0)
[2017-08-19 08:00] VITALS: BP 148/68
[2017-08-19 15:10] LABS: GLOBULIN TOTAL 3.5 g/dL (2.2-3.9); M-SPIKE Not Observed g/dL (Not Observed)
[2017-08-19 17:36] VITALS: BP 163/54
[2017-08-19 20:00] VITALS: BP 165/52
[2017-08-19 23:49] VITALS: BP 154/50
[2017-08-20 03:35] VITALS: BP 167/57
--- NOTE | 2017-08-20 10:09 | CON ---
[address] [address] CONSULTATION Name: CINDI PAN Room: [address] IN .R.#: [id number] Admission: 08/05/17 Attend Phys: Markus Campo MD Discharge: Date of : 47 Report #: [id number] THIS REPORT FOR: //name// [facility] DATE OF SERVICE: 08/14/2017 REASON FOR CONSULTATION: Iron-deficiency anemia. PRESENT ILLNESS: The patient is a 72-year-old female who was recently diagnosed with gastric ulcer after she was seen earlier this month by Dr. Dia and EGD revealed she has a gastric ulcer. The patient was started on a PPI and her diet has been advanced. In addition to that, she has been receiving IV iron due to Klebsiella UTI. The patient had also congestive heart failure, which has been followed during hospitalization, chronic kidney disease stage 3 and diabetes mellitus. The patient reported that she had a colonoscopy earlier this month. Her EGD, which was done, which showed a small hiatal hernia, gastritis, gastric ulcer with hemorrhage and clips were placed. A review of her labs revealed that she has anemia. Today, her hemoglobin is 8.5 with MCV of 78. Previously in June, her MCV was running on the lower side of normal. Elevated RDW of 18, platelets 251. TIBC showed 246 and ferritin was 53. REVIEW OF SYSTEMS: All systems were reviewed. It was negative except the above. PAST MEDICAL HISTORY: Significant for COPD, CHF, atrial fibrillation, peripheral vascular disease, hypertension, dyslipidemia, coronary artery disease, GERD, previous GI bleed due to gastric ulcer. MEDICATIONS: Per admission list. ALLERGIES: CODEINE. FAMILY HISTORY: Positive for coronary artery disease, diabetes and hypertension. PAST SURGICAL HISTORY: Cardiac stenting and right femoral artery replacement. SOCIAL HISTORY: She is an ex-smoker quit more than one year ago. No alcohol or drug abuse. ALLERGIES: SHE IS ALLERGIC TO CODEINE. PHYSICAL EXAMINATION: VITAL SIGNS: Today, temperature 36.7, pulse 59, respirations 18, [place] [address] CONSULTATION Name: PANCINDI RIVERA Asha Room: [address]#: [id number] Admission: 08/05/17 Attend Phys: Markus Campo MD Discharge: Date of : 47 Report #: [id number] is 158/47. GENERAL: The patient was sitting in a chair, was not in acute distress. LUNGS: With decreased breathing sounds bilaterally. HEART: Regular rate and rhythm, S1, S2 within normal limits. ABDOMEN: Soft, nontender, nondistended, bowel sounds positive. EXTREMITIES: +1 edema bilaterally. LABORATORY DATA: Hemoglobin 8.5 today, MCV 78.8, RDW ____ and platelets 251. Creatinine 1.2. TIBC 246 on the low side. Saturation 7%. Ferritin today showed was 53. IMAGING: Hepatobiliary scan showed normal results. Chest x-ray showed moderate pneumonitis in addition to atelectasis and enlarged heart. CT of the abdomen showed bilateral pleural effusion. No evidence of bowel obstruction. Venous Doppler of the lower extremities on 08/07 showed no evidence of DVT. ASSESSMENT AND PLAN: A 72-year-old female who has been admitted because of nausea and vomiting. Previously, she had documented gastric ulcer. She has been on a PPI. Her iron profile showed low TIBC; however, her ferritin also decreased with microcytic anemia. The etiology of her anemia is most likely due to blood loss. However, one-third of anemia of chronic disease could present with microcytic anemia. To give the patient the benefit of the doubt, I would like to put her on iron trial with Venofer 200 mg p.o. for 5 days. Her ferritin in the setting of anemia with chronic kidney disease should be around 100 ng/mL. We will obtain a B12 and peripheral blood smear to complete her workup. <ELECTRONICALLY SIGNED> By: Vance Bowling MD 08/20/17 1009 1608 0056Vance Bowling MD /nt
[2017-08-20 12:16] VITALS: BP 160/51
[2017-08-20 16:17] VITALS: BP 149/41
[2017-08-20 19:50] VITALS: BP 153/60
[2017-08-20 23:53] VITALS: BP 157/47
[2017-08-21 04:32] VITALS: BP 152/55
[2017-08-21 04:46] LABS: HEMATOCRIT 27.3 % (37.0-47.0); HEMOGLOBIN 8.5 gm/dL (12.0-15.0); MCH 25.2 pg (26.0-34.0); MCHC 31.1 g/dL (28.0-37.0); MCV 81.2 fL (80.0-100.0); MPV 8.7 fl. (7.2-11.1); NUCLEATED RBCS 0 /100WBC; PLATELET COUNT* 204 thou/uL (150-400); RBC 3.36 mil/uL (4.20-5.00); RDW-CV 19.8 % (10.5-14.5); WBC 11.1 thou/uL (4.0-11.0)
[2017-08-21 04:50] LABS: ALBUMIN 2.5 g/dL (3.4-5.0); CALCIUM 9.1 mg/dL (8.5-10.1); CREATININE 1.2 mg/dL (0.6-1.3); POTASSIUM 3.4 mmol/L (3.5-5.1); TOTAL BILIRUBIN 0.1 mg/dL (<0.1-1.0)
[2017-08-21 06:25] LABS: ABSOLUTE LYMPHOCYTES 0.4 thou/uL (0.8-5.3); ABSOLUTE NEUTROPHILS 10.7 thou/uL (1.6-8.1); PLATELET ESTIMATE ADEQUATE
[2017-08-21 06:26] LABS: ANISOCYTOSIS 1+; POIKILOCYTOSIS 1+; POLYCHROMASIA Occasional
[2017-08-21 08:00] VITALS: BP 148/64
[2017-08-21 10:26] LABS: BE 10.6 mmol/L (-2 to +3); HCO3 36.3 mmol/L (22.0-26.0); PO2 67.1 mmHg (75.0-100.0); pH 7.437 (7.340-7.450)
[2017-08-21 10:27] LABS: PCO2 55.1 mmHg (35.0-45.0)
[2017-08-21 11:50] VITALS: BP 149/53
[2017-08-21 15:42] VITALS: BP 153/45
[2017-08-22 00:02] VITALS: BP 165/53
[2017-08-22 04:33] VITALS: BP 108/60
[2017-08-22 08:00] VITALS: BP 157/51
[2017-08-22] MEDS ORDERED: ACCUNEB SO1.25 MG/1 INH (11:50)
[2017-08-22] MEDS ORDERED: FOLIC ACID1 MG PO (11:51)
[2017-08-22] MEDS ORDERED: METOPROLOL TART75 MG PO (11:53)
[2017-08-22 12:01] VITALS: BP 157/51
[2017-08-22 12:02] VITALS: BP 106/49
[2017-08-23 05:07] LABS: THYROGLOBULIN AB TITER <1.0 IU/mL (0.0-0.9)
--- NOTE | 2017-09-20 11:07 | PATH ---
[address] [address] PATHOLOGY RPT PROCEDURE Name: CINDI PAN Room: [address]#: [id number] Admission: 08/05/17 Date of : 49 Discharge: 08/22/17 Report #: [id number] Path Case #: [id number] Note [facility] Accession Number: [id number] TESTS RESULT FLAG UNITS REF RANGE LAB Clinician Provided Cytology Information No. of containers..01 Other (Miscellaneous) Source: ISTHMS MIDLINE THY DIAGNOSIS: ISTHMS MIDLINE THY NEGATIVE FOR MALIGNANT CELLS. BETHESDA CATEGORY II. SPECIMEN CONSISTS OF ABUNDANT BENIGN FOLLICULAR CELLS, HEMOSIDERIN-LADEN MACROPHAGES, SCANT COLLOID AND BLOOD. 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 Pathologist ICD10: 02 E04.1 Signed out by: 02 Elmer Garcia MD, Pathologist NPI- [id number] Performed by: 02 Melody Aguilar, [employer] Feeder ([facility]) Gross description: 01 20ML, PINK, CLOUDY /LCS FLAG LEGEND: L-Low Normal,H-High Normal,LL-Alert Low,HH-Alert High <-Panic Low,>-Panic High,A-Abnormal,AA-Critical Abnormal Performed at: [address] [place] [address] Buddy Azar MD, [address] [address] Orville Bo MD, A duplicate report has been generated due to demographic updates. Performed at: [address], [place] [id number] MD Buddy Azar MD Phone: [phone]
== END 2017-08-22 16:47 | DRG 177 ==
LOC: M.ERS 22:31 → M.TBA-ER 08-05 02:23 → M.3W 08-05 02:23
PROVIDERS: Emergency Medicine; Family Medicine; Internal Medicine; Internal Medicine Pulmonary Disease; ADMIT Internal Medicine
PROC: 5A09357 Assistance with Respiratory Ventilation, Less than 24 Consecutive Hours, Continuous Positive Airway Pressure (ICD-10-PCS; principal; 2017-08-18)
PROC: 5A09357 Assistance with Respiratory Ventilation, Less than 24 Consecutive Hours, Continuous Positive Airway Pressure (ICD-10-PCS; 2017-08-20)
PROC: 0GBG3ZX Excision of Left Thyroid Gland Lobe, Percutaneous Approach, Diagnostic (ICD-10-PCS; 2017-08-20)
PROC: 0GBH3ZX Excision of Right Thyroid Gland Lobe, Percutaneous Approach, Diagnostic (ICD-10-PCS; 2017-08-20)
PROC: 5A09357 Assistance with Respiratory Ventilation, Less than 24 Consecutive Hours, Continuous Positive Airway Pressure (ICD-10-PCS; 2017-08-21)
DX: J15.6 Pneumonia due to other Gram-negative bacteria (principal); I50.33 Acute on chronic diastolic (congestive) heart failure; J96.21 Acute and chronic respiratory failure with hypoxia; J96.22 Acute and chronic respiratory failure with hypercapnia; I13.0 Hypertensive heart and chronic kidney disease with heart failure and stage 1 through stage 4 chronic kidney disease, or unspecified chronic kidney disease; N39.0 Urinary tract infection, site not specified; J44.0 Chronic obstructive pulmonary disease with (acute) lower respiratory infection; E11.22 Type 2 diabetes mellitus with diabetic chronic kidney disease; I25.10 Atherosclerotic heart disease of native coronary artery without angina pectoris; E66.01 Morbid (severe) obesity due to excess calories; E78.5 Hyperlipidemia, unspecified; K21.9 Gastro-esophageal reflux disease without esophagitis; E11.51 Type 2 diabetes mellitus with diabetic peripheral angiopathy without gangrene; D50.9 Iron deficiency anemia, unspecified; E87.70 Fluid overload, unspecified; I27.20 Pulmonary hypertension, unspecified; N18.3 Chronic kidney disease, stage 3 (moderate); K25.9 Gastric ulcer, unspecified as acute or chronic, without hemorrhage or perforation; I65.21 Occlusion and stenosis of right carotid artery; E07.9 Disorder of thyroid, unspecified; I48.0 Paroxysmal atrial fibrillation; I35.0 Nonrheumatic aortic (valve) stenosis; T46.2X5A Adverse effect of other antidysrhythmic drugs, initial encounter; I25.2 Old myocardial infarction; Z95.5 Presence of coronary angioplasty implant and graft; Z88.6 Allergy status to analgesic agent; Z68.30 Body mass index [BMI] 30.0-30.9, adult; Z79.01 Long term (current) use of anticoagulants; Z82.49 Family history of ischemic heart disease and other diseases of the circulatory system; Z83.3 Family history of diabetes mellitus; Z87.891 Personal history of nicotine dependence; Z99.81 Dependence on supplemental oxygen; Z95.1 Presence of aortocoronary bypass graft; Y92.89 Other specified places as the place of occurrence of the external cause

== ENCOUNTER → 2018-05-12 | Outpatient (CLI) | payer MEDICARE, OTHER ==
[~2018-05-12] MED LIST changes: +ACCUNEB SO1.25 MG/1 INH; +FOLIC ACID1 MG PO; +METOPROLOL TART75 MG PO; +TOUJEO SOL300 UNIT/1 SUBQ
== END ==
LOC: M.ULTRA 11:56
DX: I70.211 Atherosclerosis of native arteries of extremities with intermittent claudication, right leg (principal)

== ENCOUNTER 2018-05-29 07:15 | Inpatient (IN) | payer MEDICARE, OTHER ==
[~2018-05-29] VITALS: Ht 165.1 cm; Wt 83.5 kg
[2018-05-29 07:16] VITALS: BP 112/68
[2018-05-29] MEDS ORDERED: NEURONTIN 300300 M1 PO (07:25)
[2018-05-29] MEDS ORDERED: HYDRALAZINE HC100 MG PO (07:25)
[2018-05-29] MEDS ORDERED: KLOR-CON 1010 MEQ PO (07:27)
[2018-05-29] MEDS ORDERED: LIPITOR80 MG PO (07:27)
[2018-05-29] MEDS ORDERED: CARAFATE1 GM PO (07:27)
[2018-05-29] MEDS ORDERED: OMEPRAZOLE40 MG PO (07:28)
[2018-05-29] MEDS ORDERED: COZAAR 25 MG TA25 M2 PO (07:28)
[2018-05-29] MEDS ORDERED: LASIX 40 MG TAB40 M2 PO (07:29)
[2018-05-29] MEDS ORDERED: LOPRESSOR25 PO (07:29)
[2018-05-29] MEDS ORDERED: AMARYL2 MG PO (07:29)
[2018-05-29] MEDS ORDERED: IRON325 PO (07:29)
[2018-05-29] MEDS ORDERED: CLOPIDOGREL75 MG PO (07:29)
[2018-05-29] MEDS ORDERED: TOUJEO MAX300 UNIT/1 SUBQ (07:31)
[2018-05-29 07:32] LABS: ABSOLUTE BASOPHILS 0.1 thou/uL (0.0-0.2); ABSOLUTE EOSINOPHILS 0.1 thou/uL (0.0-0.7); ABSOLUTE LYMPHOCYTES 1.6 thou/uL (0.8-5.3); ABSOLUTE MONOCYTES 0.6 thou/uL (0.0-1.2); ABSOLUTE NEUTROPHILS 8.7 thou/uL (1.6-8.1); BASOPHILS 0.7 %; HEMATOCRIT 37.8 % (37.0-47.0); HEMOGLOBIN 12.5 gm/dL (12.0-15.0); LYMPHOCYTES 14.3 %; MCH 28.2 pg (26.0-34.0); MCV 85.5 fL (80.0-100.0); MPV 9.3 fl. (7.2-11.1); NUCLEATED RBCS 0 /100WBC; PLATELET COUNT* 214 thou/uL (150-400); RBC 4.41 mil/uL (4.20-5.00); RDW-CV 14.9 % (10.5-14.5)
[2018-05-29 07:47] LABS: PROTIME 10.3 Seconds (9.20-11.50)
[2018-05-29 07:50] LABS: CREATININE 1.4 mg/dL (0.6-1.3); TROPONIN-I LEVEL 0.11 ng/mL (<0.06)
[2018-05-29 07:52] LABS: POTASSIUM 4.1 mmol/L (3.5-5.1); TOTAL BILIRUBIN 0.3 mg/dL (<0.1-1.0); TOTAL PROTEIN 6.6 g/dL (6.4-8.2)
[2018-05-29 10:10] VITALS: BP 135/62
[2018-05-29 10:31] VITALS: BP 148/54; BP 150/54
[2018-05-29 15:49] VITALS: BP 182/55
--- NOTE | 2018-05-29 18:24 | EKG ---
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[facility] [place] 1945 Requested By: Cassidy Hughes Order Number: [id number] MD: John Castro Measurements Intervals [place] Rate: 65 P: 17 MI: 147 QRS: 59 QRSD: 100 T: 174 QT: 437 QTc: 455 Interpretive Statements Sinus rhythm Multiple premature complexes, vent & supraven Probable left atrial enlargement Consider anterior infarct Borderline repolarization abnormality No previous ECG available for comparison Electronically Signed On 05-29-2018 18:24:21 CDT by John Castro [email or web address] <ELECTRONICALLY SIGNED> By: John Castro MD, FACC 05/29/18 1824 0850 0850 John Castro MD, [facility] /EPI
--- NOTE | 2018-05-29 18:24 | EKG ---
[place] [address] ELECTROCARDIOGRAM REPORT Name: CINDI PAN Room: [address] IN .R.#: [id number] Admission: 05/29/18 Attend Phys: Markus Campo MD Discharge: 05/30/18 Date of : 49 Report #: [id number] THIS REPORT FOR: //name// [facility] ED Test Date: 2018-05-29 Test Time: 07:17:58 Pat Name: CINDI PAN Department: Room: 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[facility] : 1945 Requested By: Cassidy Hughes Order Number: [id number] MD: John Castro Measurements Intervals [place] Rate: 152 P: [place]: QRS: 87 QRSD: 91 T: -46 QT: 327 QTc: 520 Interpretive Statements Atrial fibrillation with rapid V-rate Inferior Q waves noted ST depression, probably rate related No previous ECG available for comparison Electronically Signed On 05-29-2018 18:23:52 CDT by John Castro [email or web address] <ELECTRONICALLY SIGNED> By: John Castro MD, [facility] 05/29/18 1823 6 6 John Castro MD, [facility] /EPI
[2018-05-29 18:30] VITALS: BP 174/76
[2018-05-29 19:55] VITALS: BP 170/62
[2018-05-30] VITALS (8 sets, daily range): BP systolic 147–189; BP diastolic 57–90
[2018-05-30 05:01] LABS: ABSOLUTE EOSINOPHILS 0.1 thou/uL (0.0-0.7); ABSOLUTE LYMPHOCYTES 1.6 thou/uL (0.8-5.3); ABSOLUTE MONOCYTES 0.4 thou/uL (0.0-1.2); BASOPHILS 0.8 %; EOSINOPHILS 1.8 %; HEMATOCRIT 35.7 % (37.0-47.0); HEMOGLOBIN 11.6 gm/dL (12.0-15.0); LYMPHOCYTES 25.7 %; MCH 27.8 pg (26.0-34.0); MCHC 32.6 g/dL (28.0-37.0); MCV 85.5 fL (80.0-100.0); MONOCYTES 6.5 %; MPV 9.3 fl. (7.2-11.1); NUCLEATED RBCS 0 /100WBC; PLATELET COUNT* 179 thou/uL (150-400); POLYS 65.2 %; RBC 4.18 mil/uL (4.20-5.00); RDW-CV 14.7 % (10.5-14.5); WBC 6.2 thou/uL (4.0-11.0)
[2018-05-30 05:18] LABS: ANION GAP 10 mmol/L (7-16); BUN 22 mg/dL (7-18); CALCIUM 8.8 mg/dL (8.5-10.1); CHLORIDE 107 mmol/L (98-107); CHOLESTEROL 193 mg/dL (<200); CO2 28 mmol/L (21-32); CREATININE 1.2 mg/dL (0.6-1.3); GLUCOSE 84 mg/dL (70-99); HDL CHOLESTEROL 33 mg/dL (>40); LDL CHOLESTEROL 106 mg/dL (<100); SODIUM 145 mmol/L (136-145); TC:HDL 5.8 Ratio (Not establshd); TRIGLYCERIDE 272 mg/dL (<150); TROPONIN-I LEVEL 0.18 ng/mL (<0.06); VLDL 54 mg/dL (<40)
[2018-05-30 05:19] LABS: POTASSIUM 2.9 mmol/L (3.5-5.1); SERUM ASSESSMENT Clear
--- NOTE | 2018-05-30 16:53 | CARDNUC ---
[place] [address] CARDIAC NUCLEAR IMAGING REPORT Name: CINDI PAN Room: [address]#: [id number] Admission: 05/29/18 Attend Phys: Markus Campo, Discharge: 05/30/18 Date of : 49 Date of Service: 05/30/18 1653 Report #: [id number] THIS REPORT FOR: //name// APPROVED REPORT Imaging Protocol: Rest Tc-99m/Stress Tc-99m 1 day Study performed: 05/29/2018 14:59:00 Indication: Chest pain, nstemi Patient Location: In-Patient Room #: 208 Stress Tech: Yashira Berman Stress Nurse: Eladia Contreras RN NM Tech:LEXI Esteban Ht: 5 ft 5 in Wt: 192 lbs BSA: 1.94 m2 BMI: 31.94 Medical History Medical History: mi, cad, pat, hyperlipidemia, hypertension, diabetes Medications: metoprolol, diltiazem, apixaban, atorvastatin, clopidogrel, furosemide, losartan Allergies: amiodarone, codeine Cardiac Risk Factors: age, hyperlipidemia, hypertension, diabetes Previous Cardiac Procedures: pci Exercise History: Indeterminate troponin positive x2. 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 Time of rest injection: 854 Date: 05/30/2018 The images were gated to evaluate regional wall motion and calculate left ventricular ejection fraction. Administration Route: IV Pharmacologic Stress Pharmacologic stress test was performed by injecting Regadenoson 0.4 mg IV push over 10-15 seconds immediately followed by the intravenous injection of 36.0 mCi of Tc-99m Sestamibi. Time of stress injection: 1024 Date: 05/30/2018 Administration Route: [place] [address] CARDIAC NUCLEAR IMAGING REPORT Name: CINDI PAN Room: [address]#: [id number] Admission: 05/29/18 Attend Phys: Markus Campo, Discharge: 05/30/18 Date of : 49 Date of Service: 05/30/18 1653 Report #: [id number] Gated Stress SPECT was performed 40 minutes after stress injection. The images were gated to evaluate regional wall motion and calculate left ventricular ejection fraction. Prone imaging was performed. Stress Test Details Stress Test: Pharmacologic stress testing performed using 0.4 mg of regadenoson per 5 mL given IV over 10 seconds. Reason for pharmacologic stress test: physical limitation. 60 mg caffeine given for nausea. HR Max Heart Rate (APMHR): 149 bpm Resting HR: 80 bpm Target HR (85% APMHR): 126 bpm Max HR Achieved: 97 bpm % of APMHR: 65 Recovery HR: 83 bpm BP Resting BP: 145/75 mmHg Max BP: 154/49 mmHg Recovery BP: 142/63 mmHg ECG Resting ECG: Sinus Rhythm Stress ECG: Sinus Rhythm ST Change: None Arrhythmia: None Recovery ECG: Sinus Rhythm Recovery ST Change: None Recovery Arrhythmia: None Clinical Reason for Termination: Completed protocol Exercise duration: 0 min sec Exercise capacity: 1 METs The patient had mild nausea with Lexiscan infusion that resolved promptly with caffeine administration. Nurse Comments iv caffeine 60 mg ivp given for nausea. pt placed in supine postion, bp decreased, pt pale felling ill, zofran 4 mg ivp given for nausea. pt recovered after medications given, able to drink coffee and eat snack Stress ECG Conclusion The baseline 12-lead EKG shows sinus rhythm without significant ST or T wave abnormality. EKGs during and post Lexiscan show [place] [address] CARDIAC NUCLEAR IMAGING REPORT Name: CINDI PAN Room: [address]#: [id number] Admission: 05/29/18 Attend Phys: Markus Campo, Discharge: 05/30/18 Date of : 49 Date of Service: 05/30/18 1653 Report #: [id number] with no significant ST or T wave changes when compared to baseline. Study Quality Study: Good Artifact: Mild Diaphragmatic artifact Study Data At rest, the left ventricular ejection fraction was 71%.. Post stress, the left ventricular ejection was 71%.. TID = 0.92. Perfusion There is a focal partially reversible defect involving the mid to distal inferior wall. No other significant fixed or reversible defects are identified. Wall Motion There is a moderate region of the inferoseptal hypokinesis noted. Global LV systolic function is well-preserved. Nuclear Conclusion ECG Findings: negative for ischemia Clinical Findings: non-diagnostic Nuclear Findings: positive for ischemia Exercise Capacity: not assessed Left Ventricular Function: preserved Risk Study: moderate Myocardial perfusion images suggest prior infarct of the mid inferior wall with a moderate region of stephane-infarct area no other fixed or reversible defects were identified. Global LV systolic function is fairly well-preserved with wall motion abnormalities outlined above. This is a moderate risk study. <Conclusion> The baseline 12-lead EKG shows sinus rhythm without significant ST or T wave abnormality. EKGs during and post Lexiscan show sinus rhythm with no significant ST or T wave changes when compared to baseline. <ELECTRONICALLY SIGNED> By: John Castro MD, FACC 05/30/181652 52 52 John Castro MD, FACC /INF
[2018-05-30] MEDS ORDERED: ELIQUIS5 MG PO (17:31)
[2018-05-30] MEDS ORDERED: IMDUR 30 MG TAB30 M1 PO (17:32)
[2018-05-30] MEDS ORDERED: MULTAQ 400 MG400 MG PO (17:34)
== END 2018-05-30 18:20 | disposition home or self-care (01) | DRG 280 ==
LOC: M.ERS 07:15 → M.2W 09:23 → M.TBA-ER 09:23 → M.2W 09:23
PROVIDERS: Personal Emergency Response Attendant; ADMIT Internal Medicine
DX: I21.4 Non-ST elevation (NSTEMI) myocardial infarction (principal); I50.31 Acute diastolic (congestive) heart failure; I48.0 Paroxysmal atrial fibrillation; I25.118 Atherosclerotic heart disease of native coronary artery with other forms of angina pectoris; E78.5 Hyperlipidemia, unspecified; I10 Essential (primary) hypertension; E87.6 Hypokalemia; E11.9 Type 2 diabetes mellitus without complications; Z88.5 Allergy status to narcotic agent; Z88.8 Allergy status to other drugs, medicaments and biological substances; Z79.899 Other long term (current) drug therapy; I25.2 Old myocardial infarction; Z79.4 Long term (current) use of insulin; Z95.5 Presence of coronary angioplasty implant and graft; Z87.891 Personal history of nicotine dependence

== ENCOUNTER 2018-06-12 00:20 | Inpatient (IN) | payer MEDICARE, OTHER ==
[~2018-06-12] VITALS: Ht 165.1 cm; Wt 83.0 kg
[2018-06-12] VITALS (7 sets, daily range): BP systolic 112–164; BP diastolic 42–75
--- NOTE | ~2018-06-12 | EKG ---
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[place] : 1945 Requested By: Cassidy Hughes Order Number: [id number] MD: Measurements Intervals [place] Rate: 63 P: 23 [place]: 174 QRS: 48 QRSD: 99 T: 61 QT: 454 QTc: 465 Interpretive Statements Sinus rhythm Atrial premature complex Probable left atrial enlargement Abnormal inferior Q waves Borderline T wave abnormalities Compared to ECG 06/12/2018 00:21:36 Atrial premature complex(es) now present T-wave abnormality now present Atrial fibrillation no longer present [email or web address] By: 1002 [facility] Epiphany Epiphany, /EPI
[~2018-06-12 00:20] MED LIST changes: +AMARYL2 MG PO; +CARAFATE1 GM PO; +CLOPIDOGREL75 MG PO; +COZAAR 25 MG TA25 M2 PO; +ELIQUIS5 MG PO; +HYDRALAZINE HC100 MG PO; +IMDUR 30 MG TAB30 M1 PO; +IRON325 PO; +KLOR-CON 1010 MEQ PO; +LASIX 40 MG TAB40 M2 PO; +MULTAQ 400 MG400 MG PO; +NEURONTIN 300300 M1 PO; +OMEPRAZOLE40 MG PO; +TOUJEO MAX300 UNIT/1 SUBQ
[2018-06-12] MEDS ORDERED: CARTIA XT120 M1 PO (00:39)
[2018-06-12 00:49] LABS: ABSOLUTE BASOPHILS 0.1 thou/uL (0.0-0.2); ABSOLUTE EOSINOPHILS 0.2 thou/uL (0.0-0.7); ABSOLUTE LYMPHOCYTES 1.7 thou/uL (0.8-5.3); ABSOLUTE MONOCYTES 0.6 thou/uL (0.0-1.2); ABSOLUTE NEUTROPHILS 7.7 thou/uL (1.6-8.1); BASOPHILS 0.6 %; HEMATOCRIT 38.8 % (37.0-47.0); HEMOGLOBIN 12.6 gm/dL (12.0-15.0); LYMPHOCYTES 16.6 %; MCH 28.1 pg (26.0-34.0); MCHC 32.4 g/dL (28.0-37.0); MCV 86.7 fL (80.0-100.0); MONOCYTES 5.6 %; MPV 9.4 fl. (7.2-11.1); NUCLEATED RBCS 0 /100WBC; PLATELET COUNT* 196 thou/uL (150-400); POLYS 75.2 %; RBC 4.47 mil/uL (4.20-5.00); RDW-CV 14.9 % (10.5-14.5); WBC 10.3 thou/uL (4.0-11.0)
[2018-06-12 01:18] LABS: ANION GAP 15 mmol/L (7-16); BUN 40 mg/dL (7-18); CHLORIDE 107 mmol/L (98-107); CO2 22 mmol/L (21-32); CREATININE 1.5 mg/dL (0.6-1.3); GLUCOSE 261 mg/dL (70-99); POTASSIUM 3.8 mmol/L (3.5-5.1); SODIUM 144 mmol/L (136-145); TROPONIN-I LEVEL <0.06 ng/mL (<0.06)
[2018-06-12 01:20] LABS: ALKALINE PHOSPHATASE 117 U/L (46-116); NT-PRO BRAIN NAT PEPTIDE 1600 pg/mL (<300); SGOT 15 U/L (15-37); SGPT 22 U/L (30-65); TOTAL BILIRUBIN 0.1 mg/dL (<0.1-1.0); TOTAL PROTEIN 6.5 g/dL (6.4-8.2)
[2018-06-12 05:32] LABS: URINE BILIRUBIN NEGATIVE (Negative); URINE BLOOD NEGATIVE (Negative); URINE CLARITY CLEAR; URINE COLOR YELLOW; URINE GLUCOSE-RANDOM 1+ (Negative); URINE KETONES NEGATIVE (Negative); URINE LEUKOCYTES-REFLEX NEGATIVE (Negative); URINE NITRITE-REFLEX NEGATIVE (Negative); URINE PROTEIN 3+ (Negative); URINE SPECIFIC GRAVITY 1.025 (1.005-1.030); URINE UROBILINOGEN 0.2 E.U./dl (0.2-1.0)
[2018-06-12 05:49] LABS: BACTERIA-REFLEX >30 Many /HPF (None Seen); CRYSTALS None Seen /LPF (None Seen); FINE GRANULAR CASTS 0-3 Few /LPF (None Seen); HYALINE CASTS 0-3 Few /LPF (None Seen); MUCUS 4-6 Moderate strn/LPF (None Seen); SQUAMOUS 4-10 Moderate /LPF (0-3); TRANSITIONAL EPITHEL CELL 0-3 Few /LPF (None Seen); URINE WBC-REFLEX 6-15 Few /HPF (0-5)
--- NOTE | 2018-06-12 09:46 | EKG ---
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
--- NOTE | 2018-06-12 13:55 | EKG ---
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[facility] : 1945 Requested By: Demi Heard Order Number: [id number] Jovani MD: Partha Tan Measurements Intervals [place] Rate: 63 P: 23 OR: 174 QRS: 48 QRSD: 99 T: 61 QT: 454 QTc: 465 Interpretive Statements Sinus rhythm Atrial premature complex Probable left atrial enlargement Abnormal inferior Q waves Borderline T wave abnormalities Compared to ECG 06/12/2018 00:21:36 Atrial fibrillation no longer present Electronically Signed On 06-12-2018 13:55:24 CDT by Partha Tan [email or web address] <ELECTRONICALLY SIGNED> By: Partha Tan MD, FACC 06/12/18 1355 1002 1002 Partha Tan MD, FAC /EPI
--- NOTE | 2018-06-12 14:41 | 2DMMODE ---
[place] [address] 2 D/M-MODE ECHOCARDIOGRAM Name: CINDI PAN Room: [facility] IN [facility]#: [id number] Admission: 06/12/18 Attend Phys: Kamala Gutiérrez, Discharge: Date of : 49 Date of Service: 06/12/18 1441 Report #: [id number] THIS REPORT FOR: //name// APPROVED REPORT Study performed: 06/12/2018 13:51:59 EXAM: Comprehensive 2D, Doppler, and color-flow Echocardiogram Patient Location: In-Patient Room #: 209 Status: routine BSA: 1.90 HR: 60 bpm BP: 154/54 mmHg Rhythm: NSR Other Information Study Quality: Good Indications CAD Left Ventricle The left ventricle is normal size. There is normal LV segmental wall motion. Mild concentric left ventricular hypertrophy. Left ventricular systolic function is normal. LVEF is 60-65%. Grade I - abnormal relaxation pattern. Right Ventricle The right ventricle is normal size. The right ventricular systolic function is normal. Atria Left atrium is moderately dilated. Right atrium is mildly dilated. Aortic Valve Mild aortic valve sclerosis. No aortic regurgitation is present. Mild aortic stenosis. Mitral Valve There is mitral annular calcification. Trace mitral regurgitation. Mild mitral stenosis. Tricuspid Valve [place] [address] [place] [address] 2 D/M-MODE ECHOCARDIOGRAM Name: CINDI PAN Room: [address] IN M.R.#: [id number] Admission: 06/12/18 Attend Phys: Kamala Gutiérrez, Discharge: Date of : 49 Date of Service: 06/12/18 144 Report #: [id number] The tricuspid valve is normal in structure. Unable to assess PA pressure. Trace tricuspid regurgitation. Pulmonic Valve The pulmonary valve is normal in structure. There is no pulmonic valvular regurgitation. Great Vessels The aortic root is normal in size. IVC is normal in size and collapses >50% with inspiration. Pericardium There is no pericardial effusion. <Conclusion> The left ventricle is normal size. Mild concentric left ventricular hypertrophy. Left ventricular systolic function is normal. LVEF is 60-65%. Grade I - abnormal relaxation pattern. Left atrium is moderately dilated. Right atrium is mildly dilated. Mild aortic valve sclerosis. Mild aortic stenosis. There is mitral annular calcification. Trace mitral regurgitation. Mild mitral stenosis. IVC is normal in size and collapses >50% with inspiration. <ELECTRONICALLY SIGNED> By: John Castro MD, [facility] 06/12/18 144 40 1441 John Castro MD, FACC /INF
[2018-06-12] MEDS ORDERED: NEURONTIN 300300 M1 PO (14:50)
[2018-06-13 00:30] VITALS: BP 162/42
[2018-06-13 04:45] VITALS: BP 111/63
[2018-06-13 09:00] VITALS: BP 151/76
[2018-06-13 11:33] LABS: CALCIUM 9.2 mg/dL (8.5-10.1); CREATININE 1.3 mg/dL (0.6-1.3); POTASSIUM 3.7 mmol/L (3.5-5.1)
[2018-06-13 11:42] VITALS: BP 137/53
[2018-06-13 15:58] VITALS: BP 144/61
[2018-06-13 20:00] VITALS: BP 154/54
[2018-06-14] VITALS (7 sets, daily range): BP systolic 146–167; BP diastolic 48–56
[2018-06-14] MEDS ORDERED: COZAAR 25 MG TA25 MG PO (10:37)
--- NOTE | 2018-06-14 12:29 | EKG ---
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: [facility] : 1945 Requested By: Demi Heard Order Number: [id number] Reading MD: Star Carmona Measurements Intervals [place] Rate: 55 P: 19 [place]: 156 QRS: 57 QRSD: 99 T: 28 QT: 486 QTc: 465 Interpretive Statements Sinus rhythm Atrial premature complexes Probable left atrial enlargement Borderline T wave abnormalities Compared to ECG 06/12/2018 10:02:25 Inferior Q waves no longer present Q waves no longer present T-wave abnormality still present Electronically Signed On 06-14-2018 12:28:46 CDT by Star Carmona [email or web address] <ELECTRONICALLY SIGNED> By: Star Carmona MD, [facility] 06/14/18 1228 1003 1003 Star Carmona MD, [facility] /EPI
--- NOTE | 2018-06-14 12:33 | EKG ---
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: : 1945 Requested By: Demi Heard Order Number: [id number] Reading MD: Star Carmona Measurements Intervals [place] Rate: 57 P: 25 [place]: 162 QRS: 71 QRSD: 106 T: 61 QT: 498 QTc: 485 Interpretive Statements Sinus rhythm Probable left atrial enlargement Borderline T wave abnormalities Compared to ECG 06/12/2018 10:02:25 Atrial premature complex(es) no longer present Inferior Q waves no longer present Q waves no longer present T-wave abnormality still present Electronically Signed On 06-14-2018 12:32:50 CDT by Star Carmona [email or web address] <ELECTRONICALLY SIGNED> By: Star Camrona MD, FACC 06/14/18 1232 0808 0808 Star Carmona MD, FACC /EPI
[2018-06-14] MEDS ORDERED: SORINE 80 MG TA80 M1 PO (14:20)
[2018-06-14] MEDS ORDERED: NEURONTIN 300300 M1 PO (14:29)
[2018-06-15] VITALS: BP 143/36
[2018-06-15 04:00] VITALS: BP 138/40
[2018-06-15 08:00] VITALS: BP 124/61; BP 178/57
[2018-06-15] MEDS ORDERED: COZAAR 50 MG TA50 M1 PO (11:02)
--- NOTE | 2018-06-15 11:39 | EKG ---
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: : 1945 Requested By: Demi Heard Order Number: [id number] Reading MD: Star Carmona Measurements Intervals [place] Rate: 54 P: 22 [place]: 148 QRS: 60 QRSD: 106 T: 36 QT: 493 QTc: 468 Interpretive Statements Sinus rhythm Atrial premature complex Probable left atrial enlargement Abnormal inferior Q waves Compared to ECG 06/14/2018 08:08:41 Atrial premature complex(es) now present Inferior Q waves now present Q waves now present T-wave abnormality no longer present Electronically Signed On 06-15-2018 11:39:40 CDT by Star Carmona [email or web address] <ELECTRONICALLY SIGNED> By: Star Carmona MD, FAC 06/15/18 1139 08 0803 Star Carmona MD, FAC /EPI
[2018-06-15 12:00] VITALS: BP 193/72
[2018-06-15 13:04] VITALS: BP 156/56
== END 2018-06-15 14:39 | disposition home or self-care (01) | DRG 308 ==
LOC: M.ERS 00:20 → M.2W 01:58 → M.TBA-ER 01:58 → M.2W 03:03
PROVIDERS: Internal Medicine Cardiovascular Disease; Personal Emergency Response Attendant; ADMIT Internal Medicine
DX: I48.0 Paroxysmal atrial fibrillation (principal); N17.0 Acute kidney failure with tubular necrosis; I50.42 Chronic combined systolic (congestive) and diastolic (congestive) heart failure; I13.0 Hypertensive heart and chronic kidney disease with heart failure and stage 1 through stage 4 chronic kidney disease, or unspecified chronic kidney disease; I25.10 Atherosclerotic heart disease of native coronary artery without angina pectoris; E78.5 Hyperlipidemia, unspecified; E11.22 Type 2 diabetes mellitus with diabetic chronic kidney disease; I35.0 Nonrheumatic aortic (valve) stenosis; N18.3 Chronic kidney disease, stage 3 (moderate); Z79.899 Other long term (current) drug therapy; Z95.5 Presence of coronary angioplasty implant and graft; I25.2 Old myocardial infarction; Z88.6 Allergy status to analgesic agent; Z88.8 Allergy status to other drugs, medicaments and biological substances; Z87.891 Personal history of nicotine dependence

== ENCOUNTER 2019-03-17 09:50 | Inpatient (IN) | payer MEDICARE, OTHER ==
[~2019-03-17] VITALS: Ht 165.1 cm; Wt 82.6 kg
[~2019-03-17 09:50] MED LIST changes: +CARTIA XT120 M1 PO; +COZAAR 25 MG TA25 MG PO; +COZAAR 50 MG TA50 M1 PO; +SORINE 80 MG TA80 M1 PO
[2019-03-17 10:19] LABS: ABSOLUTE BASOPHILS 0.1 thou/uL (0.0-0.2); ABSOLUTE EOSINOPHILS 0.1 thou/uL (0.0-0.7); ABSOLUTE LYMPHOCYTES 1.9 thou/uL (0.8-5.3); ABSOLUTE MONOCYTES 0.5 thou/uL (0.0-1.2); ABSOLUTE NEUTROPHILS 5.5 thou/uL (1.6-8.1); BASOPHILS 0.7 %; EOSINOPHILS 1.5 %; HEMOGLOBIN 12.8 gm/dL (12.0-15.0); LYMPHOCYTES 23.4 %; MCH 29.3 pg (26.0-34.0); MCHC 33.6 g/dL (28.0-37.0); MCV 87.3 fL (80.0-100.0); MONOCYTES 6.3 %; MPV 8.7 fl. (7.2-11.1); NUCLEATED RBCS 0 /100WBC; PLATELET COUNT* 168 thou/uL (150-400); POLYS 68.1 %; RBC 4.35 mil/uL (4.20-5.00); RDW-CV 15.3 % (10.5-14.5); WBC 8.1 thou/uL (4.0-11.0)
[2019-03-17 10:30] LABS: CALCIUM 8.8 mg/dL (8.5-10.1); CREATININE 1.2 mg/dL (0.6-1.3); POTASSIUM 3.8 mmol/L (3.5-5.1)
[2019-03-17 10:33] LABS: APTT 30.4 Seconds (25.0-31.3); PROTIME 10.3 Seconds (9.20-11.50)
[2019-03-17 10:43] LABS: ALBUMIN 3.1 g/dL (3.4-5.0); CK-MB MASS 0.9 ng/mL (<0.5-3.6); MAGNESIUM 1.4 mg/dL (1.8-2.4); TOTAL BILIRUBIN 0.2 mg/dL (<0.1-1.0); TOTAL PROTEIN 6.5 g/dL (6.4-8.2)
--- NOTE | 2019-03-17 12:59 | EKG ---
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[facility] : 1945 Requested By: Antonio Urena Order Number: [id number] MD: Partha Tan Measurements Intervals [place] Rate: 91 P: 52 [place]: 156 QRS: 80 QRSD: 100 T: 15 QT: 362 QTc: 446 Interpretive Statements Sinus tachycardia Atrial premature complexes Borderline ST elevation, anterior leads Compared to ECG 06/15/2018 08:03:24 Sinus bradycardia no longer present Electronically Signed On 03-17-2019 12:58:19 SUPERVISOR PIPE FINISHING by Partha Tan [email or web address] <ELECTRONICALLY SIGNED> By: Partha Tan MD, [facility] 03/17/19 1258 0956 0956 Partha Tan MD, [facility] /EPI
[2019-03-17 15:21] VITALS: BP 140/51
--- NOTE | 2019-03-17 18:02 | NUR ---
PT SEEN BY DR EAST IN ER. DR EAST WANTS PT DC HOME. DR IBARRA PAGGED. PT IS OK TO BE DC HOME, CARD GRINDER NOTIFIED.
[2019-03-17 19:11] VITALS: BP 140/51
[2019-03-17 19:15] VITALS: BP 159/62
--- NOTE | 2019-03-19 15:10 | CON ---
[address] [address] CONSULTATION Name: CINDI PAN Room: [address] IN [facility]#: [id number] Admission: 03/17/19 Attend Phys: Markus Campo MD Discharge: 03/17/19 Date of : 49 Report #: [id number] THIS REPORT FOR: //name// CC: Markus Castro CARDIOLOGY CONSULTATION INDICATION: Chest pain. HISTORY OF PRESENT ILLNESS: The patient is a very pleasant 74-year-old white female who is well known to myself. She has a history of coronary artery disease with 4-vessel coronary artery bypass grafting at [facility] [place] [place] in 1997. In May 2016, she had percutaneous coronary intervention via the right femoral artery after which she developed a pseudoaneurysm and infected wound. The patient ultimately required surgery and wound VAC placement to clear the infection. The patient had a subsequent intervention in 12/2016 via the radial artery at [facility]. She has had no intervention since that time. Stress testing here in 05/2018 showed evidence of a prior infarct of the mid inferior wall with moderate periinfarct ischemia. Global LV systolic function was preserved. There was a focal wall motion abnormality in this region. The patient presented to the Emergency Room today with chest discomfort that was intermittent and worse with cough. She reports having symptoms of a cold for the past several days. She has been having intermittent midsternal chest discomfort without radiation in the last 2-3 days as well. She denies any diaphoresis, nausea or vomiting. She denies orthopnea or paroxysmal nocturnal dyspnea. She is without other cardiac complaint at this time. PAST MEDICAL HISTORY: 1. Coronary artery disease with interventions as outlined above. 2. Remote history of 5-vessel coronary artery bypass grafting. 3. History of moderately positive stress test on 05/2018. 4. Hypertension. 5. Hyperlipidemia. 6. History of peptic ulcer disease. 7. Chronic renal insufficiency. 8. Anemia. ALLERGIES: AMIODARONE, CODEINE. HOME MEDICATIONS: Eliquis 5 mg p.o. b.i.d., atorvastatin 80 mg p.o. daily, Plavix 75 mg daily, diltiazem XT 120 mg daily, iron sulfate 325 mg daily, gabapentin 600 mg t.i.d., glimepiride 2 mg daily, insulin subQ b.i.d. as directed, losartan 100 mg daily, omeprazole 40 mg daily, potassium chloride [address] [place] [address] CONSULTATION Name: CINDI PAN Room: [address]#: [id number] Admission: 03/17/19 Attend Phys: Markus Campo MD Discharge: 03/17/19 Date of : 49 Report #: [id number] mEq daily, sotalol 80 mg b.i.d., Carafate 1 gram q.a.c. and at bedtime. FAMILY HISTORY: Noncontributory. SOCIAL HISTORY: The patient quit smoking remotely. PHYSICAL EXAMINATION: VITAL SIGNS: Stable. Blood pressure 140/51, pulse is 60 and regular. GENERAL: This is a pleasant lady in no distress. Mood and affect appropriate. HEENT: Extraocular muscles intact. Mucous membranes are moist. NECK: Shows no jugular venous distention. There are no carotid bruits. CHEST: Reveals all lung bang to be clear without wheezes or rales. CARDIOVASCULAR: Reveals a regular rhythm without gallop or murmur. ABDOMEN: Reveals normal bowel sounds. The abdomen is soft, nontender. EXTREMITIES: Shows no edema. Peripheral pulses 2+ and palpable. SKIN: Dry. LABORATORY DATA: Cardiac enzymes are negative x 2 sets. EKG shows sinus rhythm without acute ST or T-wave abnormality. IMPRESSION AND RECOMMENDATIONS: 1. Chest pain. The patient has ruled out for myocardial infarction. There are no acute changes on EKG. This pain seems atypical for cardiac pain. I believe she could be followed as an outpatient. 2. Coronary artery disease. She is on appropriate medical regimen as outlined above. Continue current risk factor modification. 3. Hypertension. Blood pressure adequately controlled on current regimen. 4. Paroxysmal atrial fibrillation, maintaining sinus rhythm on sotalol. She is chronically anticoagulated and having no bleeding problems. 5. Hyperlipidemia. Continue current statin agent. At this point in time, I believe the patient will be discharged home and follow up with her cardiac appointment on 04/06/2018. <ELECTRONICALLY SIGNED> By: John Castro MD, FACC 03/19/19 1510 1714 0122John Castro MD, FACC /nt
== END 2019-03-17 19:15 | disposition home or self-care (01) | DRG 392 ==
LOC: M.ERS 09:50 → M.TBA-ER 11:23
PROVIDERS: Family Medicine; ADMIT Internal Medicine
DX: K21.9 Gastro-esophageal reflux disease without esophagitis (principal); I25.110 Atherosclerotic heart disease of native coronary artery with unstable angina pectoris; I12.9 Hypertensive chronic kidney disease with stage 1 through stage 4 chronic kidney disease, or unspecified chronic kidney disease; E11.51 Type 2 diabetes mellitus with diabetic peripheral angiopathy without gangrene; E78.5 Hyperlipidemia, unspecified; N18.9 Chronic kidney disease, unspecified; I48.0 Paroxysmal atrial fibrillation; E11.22 Type 2 diabetes mellitus with diabetic chronic kidney disease; I25.2 Old myocardial infarction; Z95.1 Presence of aortocoronary bypass graft; Z79.01 Long term (current) use of anticoagulants; Z79.84 Long term (current) use of oral hypoglycemic drugs; Z79.4 Long term (current) use of insulin; Z79.899 Other long term (current) drug therapy; Z88.5 Allergy status to narcotic agent; Z88.8 Allergy status to other drugs, medicaments and biological substances; Z87.11 Personal history of peptic ulcer disease; Z87.891 Personal history of nicotine dependence; Z95.5 Presence of coronary angioplasty implant and graft

== ENCOUNTER → 2019-04-09 | Outpatient (CLI) | payer MEDICARE, OTHER ==
[2019-04-09 14:49] LABS: CREATININE 1.6 mg/dL (0.6-1.3)
== END ==
LOC: M.LAB 14:16 → M.CT 16:00
PROVIDERS: Surgery Vascular Surgery
DX: I70.213 Atherosclerosis of native arteries of extremities with intermittent claudication, bilateral legs (principal); N28.1 Cyst of kidney, acquired; K57.30 Diverticulosis of large intestine without perforation or abscess without bleeding; I77.819 Aortic ectasia, unspecified site

== ENCOUNTER → 2019-04-21 | Outpatient (CLI) | payer MEDICARE, OTHER ==
[~2019-04-21] MED LIST changes: +NORCO 5-325 TA1 EAC1 PO
[2019-04-21 15:17] LABS: HEMATOCRIT 37.7 % (37.0-47.0); HEMOGLOBIN 12.5 gm/dL (12.0-15.0)
== END ==
LOC: M.LAB 14:06
PROVIDERS: Surgery Vascular Surgery
DX: I70.213 Atherosclerosis of native arteries of extremities with intermittent claudication, bilateral legs (principal)

== ENCOUNTER 2019-04-23 12:20 | Emergency (ER) | payer MEDICARE, OTHER ==
[~2019-04-23] VITALS: Ht 165.1 cm; Wt 83.5 kg
[~2019-04-23 12:20] MED LIST changes: -NORCO 5-325 TA1 EAC1 PO
[2019-04-23 13:22] LABS: ABSOLUTE BASOPHILS 0.1 thou/uL (0.0-0.2); ABSOLUTE EOSINOPHILS 0.1 thou/uL (0.0-0.7); ABSOLUTE LYMPHOCYTES 1.3 thou/uL (0.8-5.3); ABSOLUTE MONOCYTES 0.4 thou/uL (0.0-1.2); ABSOLUTE NEUTROPHILS 5.3 thou/uL (1.6-8.1); EOSINOPHILS 1.1 %; HEMATOCRIT 34.4 % (37.0-47.0); HEMOGLOBIN 11.4 gm/dL (12.0-15.0); LYMPHOCYTES 18.4 %; MCH 29.1 pg (26.0-34.0); MCHC 33.1 g/dL (28.0-37.0); MONOCYTES 5.4 %; MPV 9.5 fl. (7.2-11.1); NUCLEATED RBCS 0 /100WBC; PLATELET COUNT* 180 thou/uL (150-400); POLYS 74.1 %; RBC 3.91 mil/uL (4.20-5.00); RDW-CV 15.3 % (10.5-14.5); WBC 7.2 thou/uL (4.0-11.0)
[2019-04-23 13:34] LABS: APTT 28.9 Seconds (25.0-31.3); CALCIUM 8.3 mg/dL (8.5-10.1); CREATININE 1.3 mg/dL (0.6-1.3); POTASSIUM 4.4 mmol/L (3.5-5.1); PROTIME 10.6 Seconds (9.20-11.50)
[2019-04-23 13:38] LABS: ALBUMIN 2.9 g/dL (3.4-5.0); TOTAL BILIRUBIN 0.2 mg/dL (<0.1-1.0); TOTAL PROTEIN 6.2 g/dL (6.4-8.2)
[2019-04-23 14:23] LABS: URINE BILIRUBIN NEGATIVE (Negative); URINE BLOOD NEGATIVE (Negative); URINE CLARITY CLEAR; URINE COLOR YELLOW; URINE GLUCOSE-RANDOM 3+ (Negative); URINE KETONES NEGATIVE (Negative); URINE LEUKOCYTES-REFLEX NEGATIVE (Negative); URINE NITRITE-REFLEX NEGATIVE (Negative); URINE PROTEIN 3+ (Negative); URINE SPECIFIC GRAVITY 1.025 (1.005-1.030); URINE UROBILINOGEN 0.2 E.U./dl (0.2-1.0)
[2019-04-23 14:29] LABS: SQUAMOUS 0-3 Few /LPF (0-3); URINE RBC None Seen /HPF (0-2); URINE WBC-REFLEX 0-5 Rare /HPF (0-5)
[2019-04-23 14:31] LABS: CASTS None Seen /LPF (None Seen); CRYSTALS None Seen /LPF (None Seen); MUCUS None Seen strn/LPF (None Seen)
--- NOTE | 2019-04-23 15:16 | EKG ---
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: [facility] : 1945 Requested By: Luis Miguel Davidson Order Number: [id number] MD: Partha Tan Measurements Intervals [place] Rate: 75 P: 49 [place]: 160 QRS: 66 QRSD: 94 T: 81 QT: 427 QTc: 477 Interpretive Statements Sinus arrhythmia Probable left atrial enlargement Abnormal inferior Q waves Borderline prolonged QT interval Compared to ECG 03/17/2019 09:56:40 Sinus tachycardia no longer present Atrial premature complex(es) no longer present ST (T wave) deviation no longer present Electronically Signed On 04-23-2019 15:15:14 CALIBRATION CHECKER by Partha Tan [email or web address] <ELECTRONICALLY SIGNED> By: Partha Tan MD, [facility] 04/23/19 1515 1330 1330 Partha Tan MD, [facility] /EPI
[2019-04-23] MEDS ORDERED: NORCO 5-325 TA1 EAC1 PO (16:10)
[2019-04-23 16:32] VITALS: BP 140/75
== END 2019-04-23 16:33 | disposition home or self-care (01) ==
LOC: M.ERS 12:20
PROVIDERS: Physician Assistant
DX: M54.6 Pain in thoracic spine (principal); E11.65 Type 2 diabetes mellitus with hyperglycemia; R07.89 Other chest pain; I48.91 Unspecified atrial fibrillation; Z95.5 Presence of coronary angioplasty implant and graft; Z79.4 Long term (current) use of insulin; Z88.6 Allergy status to analgesic agent; Z88.8 Allergy status to other drugs, medicaments and biological substances

== ENCOUNTER 2019-04-27 13:39 | Inpatient (IN) | payer MEDICARE, OTHER ==
[~2019-04-27] VITALS: Ht 165.1 cm; Wt 83.9 kg
[~2019-04-27 13:39] MED LIST changes: +NORCO 5-325 TA1 EAC1 PO
[2019-04-27 14:09] VITALS: BP 195/60
[2019-04-27 14:39] LABS: ABSOLUTE BASOPHILS 0.1 thou/uL (0.0-0.2); ABSOLUTE EOSINOPHILS 0.1 thou/uL (0.0-0.7); ABSOLUTE LYMPHOCYTES 1.1 thou/uL (0.8-5.3); ABSOLUTE MONOCYTES 0.4 thou/uL (0.0-1.2); ABSOLUTE NEUTROPHILS 7.3 thou/uL (1.6-8.1); BASOPHILS 0.8 %; HEMATOCRIT 36.4 % (37.0-47.0); HEMOGLOBIN 12.1 gm/dL (12.0-15.0); LYMPHOCYTES 12.7 %; MCHC 33.2 g/dL (28.0-37.0); MCV 87.2 fL (80.0-100.0); MONOCYTES 4.8 %; MPV 9.1 fl. (7.2-11.1); NUCLEATED RBCS 0 /100WBC; PLATELET COUNT* 201 thou/uL (150-400); POLYS 80.7 %; RBC 4.18 mil/uL (4.20-5.00); RDW-CV 15.2 % (10.5-14.5)
[2019-04-27 14:51] LABS: CALCIUM 9.1 mg/dL (8.5-10.1); CREATININE 1.3 mg/dL (0.6-1.3); POTASSIUM 3.9 mmol/L (3.5-5.1)
[2019-04-27 15:01] LABS: ALBUMIN 3.3 g/dL (3.4-5.0); MAGNESIUM 1.5 mg/dL (1.8-2.4); TOTAL BILIRUBIN 0.3 mg/dL (<0.1-1.0)
[2019-04-27 18:52] LABS: CHOLESTEROL 232 mg/dL (<200); HDL CHOLESTEROL 37 mg/dL (>40); LDL CHOLESTEROL 135 mg/dL (<100); TC:HDL 6.3 Ratio (Not establshd); TRIGLYCERIDE 302 mg/dL (<150); VLDL 60 mg/dL (<40)
[2019-04-27 18:55] LABS: SERUM ASSESSMENT CLEAR
[2019-04-27 20:00] VITALS: BP 165/51
[2019-04-27 20:05] VITALS: BP 165/60
--- NOTE | 2019-04-27 20:10 | NUR ---
RECEIVED REPORT FROM ER, ADMITTED TO ROOM. NO ACUTE DISTESS. O2 ON AT 2L/NC. TELEMETRY APPLIED SHOWING A-FIB. SEE ADMITTING HX AND ASSESSMENT. WILL CONT TO MONITOR AND ASSIST NEEDED.
[2019-04-27 23:51] VITALS: BP 134/56
[2019-04-28] VITALS (9 sets, daily range): BP systolic 115–136; BP diastolic 35–75
[2019-04-28 04:11] LABS: ABSOLUTE EOSINOPHILS 0.2 thou/uL (0.0-0.7); ABSOLUTE MONOCYTES 0.6 thou/uL (0.0-1.2); ABSOLUTE NEUTROPHILS 6.1 thou/uL (1.6-8.1); BASOPHILS 0.4 %; EOSINOPHILS 1.9 %; HEMATOCRIT 33.4 % (37.0-47.0); HEMOGLOBIN 11.2 gm/dL (12.0-15.0); LYMPHOCYTES 22.6 %; MCH 29.2 pg (26.0-34.0); MCHC 33.4 g/dL (28.0-37.0); MCV 87.5 fL (80.0-100.0); MONOCYTES 6.3 %; MPV 8.4 fl. (7.2-11.1); NUCLEATED RBCS 0 /100WBC; PLATELET COUNT* 213 thou/uL (150-400); POLYS 68.8 %; RBC 3.82 mil/uL (4.20-5.00); RDW-CV 15.3 % (10.5-14.5); WBC 8.8 thou/uL (4.0-11.0)
[2019-04-28 04:57] LABS: CALCIUM 8.7 mg/dL (8.5-10.1); CREATININE 1.4 mg/dL (0.6-1.3); POTASSIUM 3.9 mmol/L (3.5-5.1); TROPONIN-I LEVEL 0.2 ng/mL (<0.06)
--- NOTE | 2019-04-28 06:05 | NUR ---
PT SLEPT WELL. GAIT STEADY TO AND FROM BR. NO COMPLAINT OF CHEST PAIN BUT HAVING LOW BACK PAIN. TELEMETRY CONT TO SHOW A-FIB. NPO SINCE MN. HS GOALS OF REST AND SAFETY ACHIEVED. HOURLY ROUNDING OBSERVED.
--- NOTE | 2019-04-28 10:56 | EKG ---
[place] [address] ELECTROCARDIOGRAM REPORT Name: CINDI PAN Room: [place] [address] ADM IN [facility]#: [id number] Admission: 04/27/19 Attend Phys: Markus Campo, Discharge: Date of : 49 Date of Service: 04/27/19 1406 Report #: [id number] THIS REPORT FOR: //name// 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: [place] : 1945 Requested By: Paul Cullen Order Number: [id number] MD: John Castro Measurements Intervals [place] Rate: 66 P: 29 OR: 152 QRS: 21 QRSD: 98 T: -30 QT: 522 QTc: 548 Interpretive Statements Sinus arrhythmia Probable left atrial enlargement Probable anterior infarct, age indeterminate Prolonged QT interval Compared to ECG 04/23/2019 13:30:59 Myocardial infarct finding now present Inferior Q waves no longer present Electronically Signed On 04-28-2019 10:54:58 CDT by John Castro [email or web address] <ELECTRONICALLY SIGNED> By: John Castro MD, FACC 04/28/19 1054 1406 1406 John Castro MD, FACC /EPI
--- NOTE | 2019-04-28 11:45 | NUR ---
ASSUMED CARE AFTER REPORT APPROX 0730. A&OX4, ABLE TO EXPRESS NEEDS TO STAFF. ASSESSMENT COMPLETED, DOCUMENTED, REVIEWED AND IN AGREEMENT WITH SN DOCUMENTATION. VS OBTAINED, DOCUMENTED. CONVEYOR WORKER IN PLACE, SB. NPO FOR CARDIAC CONSULT, CATHETERIZATION PLANNED THIS AFTERNOON. PATIENT OFF UNIT AT THIS TIME WITH DIRECTOR OF HEALTHCARE SYSTEMS STAFF VIA BED.
--- NOTE | 2019-04-28 14:10 | NUR ---
REC'D REPORT FROM ACADEMIC ASSISTANT RN. PATIENT TO UNIT VIA BED SHORTLY.
--- NOTE | 2019-04-28 15:36 | NUR ---
Pt with cardiac rehab when CM went to assess, will f/u later
[2019-04-29] VITALS (8 sets, daily range): BP systolic 136–194; BP diastolic 49–72
[2019-04-29 04:18] LABS: ABSOLUTE BASOPHILS 0.1 thou/uL (0.0-0.2); ABSOLUTE EOSINOPHILS 0.2 thou/uL (0.0-0.7); ABSOLUTE LYMPHOCYTES 1.7 thou/uL (0.8-5.3); ABSOLUTE MONOCYTES 0.6 thou/uL (0.0-1.2); ABSOLUTE NEUTROPHILS 6.1 thou/uL (1.6-8.1); BASOPHILS 0.6 %; EOSINOPHILS 1.9 %; HEMATOCRIT 29.6 % (37.0-47.0); HEMOGLOBIN 9.9 gm/dL (12.0-15.0); LYMPHOCYTES 19.7 %; MCH 29.4 pg (26.0-34.0); MCHC 33.4 g/dL (28.0-37.0); MCV 88.2 fL (80.0-100.0); MONOCYTES 7.2 %; MPV 8.9 fl. (7.2-11.1); NUCLEATED RBCS 0 /100WBC; PLATELET COUNT* 159 thou/uL (150-400); POLYS 70.6 %; RBC 3.35 mil/uL (4.20-5.00); RDW-CV 15.1 % (10.5-14.5); WBC 8.6 thou/uL (4.0-11.0)
[2019-04-29 04:35] LABS: CALCIUM 7.7 mg/dL (8.5-10.1); CREATININE 1.7 mg/dL (0.6-1.3); POTASSIUM 4.3 mmol/L (3.5-5.1)
--- NOTE | 2019-04-29 05:53 | NUR ---
ASSESSMENT COMPLETED CHARTED, MEDICATIONS ADMINISTERED PER MAR. HOURLY ROUNDING FOR SAFETY. IN BED WITH BED ALARM ON AND CALL LIGHT WITHIN REACH.
--- NOTE | 2019-04-29 08:39 | NUR ---
ASSUMED CARE OF PT THIS AM AROUND 07- SALES AND LEASING AGENT IN PLACE ORDERED, TRACING SB WITH PAC- UPON ASSESSMENT PT NOTED TO BE RESTING IN BED, WATCHING TV- PT A&O X4- CONT OF BOWEL AND BLADDER- ASSIST X1 WITH TRANSFERS R/T C/O DIZZINESS WITH AMBULATION- LCTA/DIMINISHED IN BASES, RESP EVEN AND UN-LABORED- VSS, O2 SAT NOTED TO BE 98% ON 2L VIA NC, O2 TITRATED TO RA- ABD SOFT/ROUND/NON-TENDER, BS X4 QUADS- LAST BM REPORTED THIS AM- IV NOTED TO LEFT FA INTACT, IVF INFUSSING PRESCRIBED- LEFT GROIN CATH SITE C/D/I WITH NO HEMATOMA NOTED, DRESSING CHANGED WITH BANDAIDE TO SITE PER CVRN THIS AM- TRACE EDEMA NOTED TO BLE- PT DENIES ANY C/O PAIN/DISCOMFORT AT THIS TIME- CALL LIGHT AND PERSONAL BELONGINGS WITH IN REACH- PT MAKES NEEDS KNOWN- ALL NEEDS MET AT THIS TIME-WCTM
--- NOTE | 2019-04-29 12:00 | CARD ---
[address] [address] CARDIAC CATH REPORT Name: CINDI PAN Room: [address] IN [facility]#: [id number] Admission: 04/27/19 Attend Phys: Markus Campo MD Discharge: Date of : 49 Report #: [id number] THIS REPORT FOR: //name// cc: Adithya Braga MD, Anthony MD ~ THIS REPORT FOR: //name// APPROVED REPORT Study performed: 04/28/2019 10:43:30 Patient Details Patient Status: In-Patient Room #: The patient is a 74 year-old female Event Personnel John Castro Carpenter Helper Maintenance, Ryan Jolly Pasta Maker, Arlene Mcgregor RN RN, Kong Phillipsub, Sixto Lucas RTR Monitor, Gayathri Enrique RTR Monitor Procedures Performed Art Access - L femoral artery, Left Heart Cath Coronaries, Bypass Grafts LHCCORCABG, KAPIL Place w/wo Plasty Single Left Main, Hemostasis w/ Mynx Indication Non-STEMI Risk Factors Hypercholesterolemia, Hypertension Admission/Lab Medications/Medications given during procedure Angiomax IV bolus 13 ml, Angiomax IV drip 29.75 ml per hr, Nitroglycerin IC 200 mcg, Aspirin PO 162 mg, Plavix PO 300 mg Procedure Narrative The patient was brought electively to the Cardiac Catheterization Laboratory and was prepped and draped in a sterile manner. The left femoral groin area was infiltrated with 1% Lidocaine subcutaneous anesthesia. A 6F Whiting sheath was inserted into the left femoral artery. Coronary angiography was performed using coronary diagnostic catheters. The right coronary system was accessed and visualized with a 6F JR4 catheter. The left coronary system was accessed and visualized with a 6F JL4 catheter. [place] [address] CARDIAC CATH REPORT Name: VIVIANECINDI Asha Room: [address]#: [id number] Admission: 04/27/19 Attend Phys: Markus Campo MD Discharge: Date of : 49 Report #: [id number] and visualized with a 6F Pigtail catheter. Left ventricular/Aortic Valve gradient assessed via catheter pullback. Left ventriculogram was performed in [place] projection. Pre-demployment femoral angiogram was performed . Closure device was deployed with a 6 Fr Mynx. The patient tolerated the procedure well and there were no complications associated with the procedure. There was no hematoma. The saphenous vein grafts were accessed and visualized with both a 6F JR4 catheter and a 6F MPA2 catheter. The REARDON graft was accessed and visualized with a 6F JR4 catheter. Intraoperative Conscious Sedation Sedation start time: 11:49 Case end Time: 13:01 Fentanyl 50 mcg Versed 3 mg Fluoro Time: 22.4 minutes Dose: DAP 420051 cGycm2 3864 mGy Contrast Type and Amount: Visipaque 320 ml Quechan Artery Percent Stenosis #1 widely patent REARDON graft to the LAD #2 widely patent saphenous vein graft to 2 distal branches of the dominant right coronary artery #3 patent saphenous vein graft to the distal circumflex with multiple 30% narrowings within the graft and 90% distal anastomotic narrowing Diagnostic Cath Left Main 60% ostial 80% distal narrowing LAD 80% proximal stenosis with 100% mid vessel occlusion with reciprocal flow reflecting a patent REARDON graft to the more distal LAD Circumflex 50% proximal narrowing with 40% mid vessel disease Right Coronary 100% mid vessel occlusion Left Ventriculography The left ventricle is normal in size with normal contractility. The left ventricular ejection fraction is estimated to be 65%. Left ventricular wall motion abnormalities are not present. There is no mitral insufficiency. Hemodynamics The aortic pressure is 147/42 mmHg with a mean of 59 mmHg. The left ventricular pressure is 148/4 mmHg with a [place] [address] CARDIAC CATH REPORT Name: CINDI PAN Room: [address] IN [facility]#: [id number] Admission: 04/27/19 Attend Phys: Markus Campo MD Discharge: Date of : 49 Report #: [id number] ventricular end diastolic pressure is 13 mmHg. PCI Technique Lesion Anticoagulation was achieved with Angiomax. Patient was preloaded with Angiomax IV bolus 13 ml. Percutaneous coronary intervention was performed on the left main coronary artery. The lesion stenosis prior to intervention was 80% with LUDWIN 3 flow. A 6F XB LAD 3 SH Guide Catheter was used to engage the left main ostium. A BMW 190cm Interventional Guidewire was used to cross the lesion. BALLOON DILATION A Balloon catheter Trek RX 2.5 X 15 was inserted and inflated up to 12.00atm for 16seconds. Additional Inflation: 14.00atm for 11seconds. Additional Inflation: 14.00atm for 11seconds. STENT DEPLOYMENT A drug-eluting stent Marc RX Stent 2.5X18mm was inserted and inflated up to 12.00atm for 12seconds. Additional Inflation: 12.00atm for 8seconds. A drug-eluting stent Hastings Rx Stent 2.5x8 was inserted and inflated up to 14 jh for 12 seconds. An additional inflation up to 16 jh for 8 seconds. Final angiography reveals 0 % stenosis with LUDWIN 3 flow. COMMENTS A 2.5 x 18 mm drug-eluting stent was deployed in the distal left main extending into the proximal circumflex; a 2.5 x 8 marc drug-eluting stent was deployed at the ostial proximal left main site Conclusion #1 severe coronary artery disease characterized by the following: A 80% distal left main coronary stenosis extending into the proximal circumflex with 60% ostial left main coronary narrowing B 50% proximal circumflex narrowing with 40% mid vessel disease C 80% proximal LAD stenosis with 100% mid vessel occlusion and reciprocal flow reflecting a patent REARDON graft to the mid to distal LAD D total occlusion midportion of the dominant right coronary artery #2 graft study characterized by the following: [address] [address] CARDIAC CATH REPORT Name: CINDI PAN Room: [address] IN [facility]#: [id number] Admission: 04/27/19 Attend Phys: Markus Campo MD Discharge: Date of : 49 Report #: [id number] A widely patent REARDON graft to the mid LAD B widely patent saphenous vein graft to 2 distal branches of the dominant right coronary artery C patent saphenous vein graft to the distal circumflex with multiple 30% narrowing within the graft with 90% distal anastomotic stenosis #3 normal left ventricular systolic function, estimate ejection fraction 65% #4 normal left-sided hemodynamics study #5 successful PCI with deployment of drug-eluting stents in the ostial proximal and distal left main coronary sites with 0% residual narrowing and LUDWIN-3 flow to the distal circulation Recommendations Cardiac Risk Reduction Program Aggressive Medical Therapy Medications Administered Aspirin (any) Clopidogrel Diagnostic Cath Approved by: John Castro MD Date/Time: 04/29/2019 11:57:11 <ELECTRONICALLY SIGNED> By: Ryan Jolly MD, FAC 04/29/19 1158 1158 1158Ryan Jolly MD, FACC /INF
[2019-04-29 14:58] LABS: CALCIUM 8.1 mg/dL (8.5-10.1); CREATININE 1.6 mg/dL (0.6-1.3); POTASSIUM 4.6 mmol/L (3.5-5.1)
--- NOTE | 2019-04-29 15:31 | NUR ---
CM COMPLETED INITIAL ASSESSMENT TO DISCUSS D/C PLANNING. PT LIVES W/DTR TEMPORARILY UNTIL SHE MOVES INTO HER OWN PLACE IN A FEW DAYS. PT IS ACTIVE, EMPLOYEED AND DRIVES. PT HAS GOOD SUPPORT FROM HER 2 DTRS. PT DENIES HX W/SNF. USED [facility] IN THE PAST. PT HAS 0 DMES. CM TO REMAIN AVAIL TO ASSIST NEEDED.
[2019-04-30 04:28] VITALS: BP 194/63
[2019-04-30 05:20] LABS: ABSOLUTE BASOPHILS 0.1 thou/uL (0.0-0.2); ABSOLUTE EOSINOPHILS 0.2 thou/uL (0.0-0.7); ABSOLUTE LYMPHOCYTES 1.2 thou/uL (0.8-5.3); ABSOLUTE MONOCYTES 0.5 thou/uL (0.0-1.2); ABSOLUTE NEUTROPHILS 7.8 thou/uL (1.6-8.1); EOSINOPHILS 2.3 %; HEMATOCRIT 31.3 % (37.0-47.0); HEMOGLOBIN 10.4 gm/dL (12.0-15.0); LYMPHOCYTES 11.9 %; MCH 29.4 pg (26.0-34.0); MCHC 33.4 g/dL (28.0-37.0); MCV 88.1 fL (80.0-100.0); MONOCYTES 5.3 %; MPV 9.7 fl. (7.2-11.1); NUCLEATED RBCS 0 /100WBC; PLATELET COUNT* 193 thou/uL (150-400); POLYS 79.5 %; RBC 3.55 mil/uL (4.20-5.00); RDW-CV 15.5 % (10.5-14.5); WBC 9.8 thou/uL (4.0-11.0)
--- NOTE | 2019-04-30 05:28 | NUR ---
ASSESSMENT COMPLETED CHARTED, MEDICATIONS ADMINISTERED PER MAR. HOURLY ROUNDING FOR SAFETY. IN BED WITH BED ALARM ON AND CALL LIGHT WITHIN REACH. IV INFILTRATED, PT REQUESTED TO NOT HAVE AN IV PLACED, CONFIRMED WITH PHYSICIAN FOOD PACKER THAT OKAY TO LEAVE OUT AT THIS TIME. NO OTHER C/O PAIN OR DISCOMFORT NOTED.
[2019-04-30 05:40] LABS: CALCIUM 8.6 mg/dL (8.5-10.1); CREATININE 1.5 mg/dL (0.6-1.3); POTASSIUM 4.3 mmol/L (3.5-5.1)
[2019-04-30 07:58] VITALS: BP 135/69
--- NOTE | 2019-04-30 09:47 | NUR ---
ASSUMED CARE OF PT THIS AM AROUND 0715- PESTICIDE USE MEDICAL COORDINATOR IN PLACE ORDERED, TRACING SR- UPON ASSESSMENT PT NOTED TO BE RESTING ON BED SIDE- PT A&O X4- CONT OF BOWEL AND BLADDER- SBA WITH TRANSFERS FOR SAFETY- LCTA, RESP EVEN AND UN-LABORED- VSS, O2 SAT 94% ON RA- ABD SOFT/ROUND/NON-TENDER, BS X4 QUADS- LAST BM REPORTED 04/29/19- NO IV ACCESS NOTED, PHYSICIAN AWARE- GOOD PO INTAKE NOTED THIS AM WITH BREAKFAST, BS MONITORED ORDERED WITH SSI PRESCRIBED- LEFT GROIN SIGHT C/D/I WITH BANDAIDE IN PLACE INDICATED- PT C/O HEADACHE THIS AM WITH PRN TYLENOL GIVEN, PT REPORTS MEDICATION TO BE EFFECTIVE- CALL LIGHT AND PERSONAL BELONGINGS WITH IN REACH- PT MAKES NEEDS KNOWN- ALL NEEDS MET AT THIS TIME-WCTM
[2019-04-30 11:44] VITALS: BP 169/60
[2019-04-30] MEDS ORDERED: HYDRALAZINE HC100 MG PO (12:02)
[2019-04-30 12:06] VITALS: BP 131/51
--- NOTE | 2019-04-30 12:23 | NUR ---
pt to d/c home w/HH. pt's preference is [facility]. vendor choice form signed and placed in pt's chart. cm faxed orders to [facility]. Awaiting insur auth per [facility].
[2019-04-30 12:39] VITALS: BP 131/51
== END 2019-04-30 12:47 | disposition home or self-care (01) | DRG 246 ==
LOC: M.ERS 13:39 → M.TBA-ER 15:41 → M.2W 15:41
PROVIDERS: Emergency Medicine Emergency Medical Services; Registered Nurse; ADMIT Internal Medicine
PROC: 4A023N7 Measurement of Cardiac Sampling and Pressure, Left Heart, Percutaneous Approach (ICD-10-PCS; principal; 2019-04-28)
PROC: B213YZZ Fluoroscopy of Multiple Coronary Artery Bypass Grafts using Other Contrast (ICD-10-PCS; principal; 2019-04-28)
PROC: B211YZZ Fluoroscopy of Multiple Coronary Arteries using Other Contrast (ICD-10-PCS; principal; 2019-04-28)
PROC: 027034Z Dilation of Coronary Artery, One Artery with Drug-eluting Intraluminal Device, Percutaneous Approach (ICD-10-PCS; principal; 2019-04-28)
PROC: B218YZZ Fluoroscopy of Left Internal Mammary Bypass Graft using Other Contrast (ICD-10-PCS; principal; 2019-04-28)
PROC: B215YZZ Fluoroscopy of Left Heart using Other Contrast (ICD-10-PCS; principal; 2019-04-28)
DX: I21.4 Non-ST elevation (NSTEMI) myocardial infarction (principal); I50.31 Acute diastolic (congestive) heart failure; N17.0 Acute kidney failure with tubular necrosis; I25.110 Atherosclerotic heart disease of native coronary artery with unstable angina pectoris; I11.0 Hypertensive heart disease with heart failure; E78.5 Hyperlipidemia, unspecified; E11.51 Type 2 diabetes mellitus with diabetic peripheral angiopathy without gangrene; I48.0 Paroxysmal atrial fibrillation; F41.9 Anxiety disorder, unspecified; I25.2 Old myocardial infarction; Z95.5 Presence of coronary angioplasty implant and graft; Z95.1 Presence of aortocoronary bypass graft; Z79.899 Other long term (current) drug therapy; Z79.84 Long term (current) use of oral hypoglycemic drugs; Z79.4 Long term (current) use of insulin; Z88.6 Allergy status to analgesic agent; Z88.8 Allergy status to other drugs, medicaments and biological substances; Z87.891 Personal history of nicotine dependence; Z79.01 Long term (current) use of anticoagulants

== ENCOUNTER → 2019-05-01 | Outpatient (CLI) | payer MEDICARE, OTHER | LOC: M.RAD 15:10 | DX: R06.02 Shortness of breath (principal) ==

== ENCOUNTER 2019-05-21 06:52 | Inpatient (IN) | payer MEDICARE, OTHER ==
[~2019-05-21] VITALS: Ht 165.1 cm; Wt 90.3 kg
[2019-05-21 06:55] VITALS: BP 167/95
[2019-05-21 07:19] LABS: ABSOLUTE BASOPHILS 0.1 thou/uL (0.0-0.2); ABSOLUTE EOSINOPHILS 0.2 thou/uL (0.0-0.7); ABSOLUTE LYMPHOCYTES 1.6 thou/uL (0.8-5.3); ABSOLUTE MONOCYTES 0.5 thou/uL (0.0-1.2); ABSOLUTE NEUTROPHILS 6.4 thou/uL (1.6-8.1); BASOPHILS 0.7 %; HEMATOCRIT 33.9 % (37.0-47.0); HEMOGLOBIN 11.3 gm/dL (12.0-15.0); LYMPHOCYTES 18.4 %; MCH 28.4 pg (26.0-34.0); MCHC 33.4 g/dL (28.0-37.0); MCV 85.1 fL (80.0-100.0); MONOCYTES 5.8 %; MPV 8.7 fl. (7.2-11.1); NUCLEATED RBCS 0 /100WBC; PLATELET COUNT* 225 thou/uL (150-400); POLYS 73.1 %; RBC 3.98 mil/uL (4.20-5.00); WBC 8.8 thou/uL (4.0-11.0)
[2019-05-21 07:20] LABS: CREATININE 1.3 mg/dL (0.6-1.3); POTASSIUM 3.7 mmol/L (3.5-5.1); PROTIME 10.1 Seconds (9.20-11.50)
[2019-05-21 07:31] LABS: ALBUMIN 3.1 g/dL (3.4-5.0); MAGNESIUM 1.6 mg/dL (1.8-2.4); TOTAL BILIRUBIN 0.3 mg/dL (<0.1-1.0)
--- NOTE | 2019-05-21 09:28 | NUR ---
DILTIAZEM DRIP TITRATED DOWN TO 5 MG/HR PER DR. MCGEE'S ORDERS. HR CURRENTLY 55 BPM. PT HAS CONVERTED TO SINUS RHYTHM.
[2019-05-21 10:10] VITALS: BP 166/56
[2019-05-21 10:30] VITALS: BP 143/61
--- NOTE | 2019-05-21 12:52 | EKG ---
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 : 1945 Requested By: Paul Cullen Order Number: [id number] MD: Ryan Jolly Measurements Intervals [place] Rate: 128 P: OR: QRS: 77 QRSD: 91 T: -66 QT: 337 QTc: 492 Interpretive Statements Atrial fibrillation Borderline repolarization abnormality Borderline prolonged QT interval Compared to ECG 04/27/2019 14:06:00 Sinus arrhythmia no longer present Myocardial infarct finding no longer present Electronically Signed On 05-21-2019 12:50:47 CDT by Ryan Jolly [email or web address] <ELECTRONICALLY SIGNED> By: Ryan Jolly MD, [facility] 05/21/19 1250 0656 0656 Ryan Jolly MD, [facility] /EPI
--- NOTE | 2019-05-21 12:59 | 2DMMODE ---
[place] [address] 2 D/M-MODE ECHOCARDIOGRAM Name: PANCINDI Asha Room: [address] IN [facility]#: [id number] Admission: 05/21/19 Attend Phys: Fabricio fishman Sa Discharge: Date of : 49 Date of Service: 05/21/19 1258 Report #: [id number] THIS REPORT FOR: cc: Adithya Braga MD, Anthony MD Holkins,Ryan Rodrigues MD [facility] ~ APPROVED REPORT Study performed: 05/21/2019 11:14:59 EXAM: Comprehensive 2D, Doppler, and color-flow Echocardiogram Patient Location: In-Patient Room #: [facility] Status: routine BSA: 1.90 HR: 57 bpm BP: 166/56 mmHg Rhythm: NSR Other Information Study Quality: Good Indications Dyspnea 2D Dimensions IVSd: 14.89 (7-11mm) LVOT Diam: 19.51 (18-24mm) LVDd: 47.76 mm PWd: 10.50 (7-11mm) Ascending Ao: 29.41 (22-36mm) LVDs: 25.57 (25-40mm) Aortic Root: 31.80 mm Volumes Left Atrial Volume (Systole) LA ESV Index: 56.70 mL/m2 Aortic Valve AoV Peak Tono.: 2.12 m/s AO Peak Gr.: 17.99 mmHg LVOT Max P.24 mmHg AO Mean Gr.: 10.42 mmHg LVOT Mean P.89 mmHg LVOT Max V: 1.03 m/s AO V2 VTI: 55.06 cm LVOT Mean V: 0.62 m/s ROSARIO (VTI): 1.41 cm2 LVOT V1 VTI: 26.07 [place] [address] 2 D/M-MODE ECHOCARDIOGRAM Name: CINDI PAN Room: [address] IN [facility]#: [id number] Admission: 05/21/19 Attend Phys: Fabricio fishman Sa Discharge: Date of : 49 Date of Service: 05/21/19 1258 Report #: [id number] Mitral Valve E/A Ratio: 1.03 MV Decel. Time: 329.58 ms MV E Max Tono.: 1.47 m/s MV PHT: 95.58 ms MVA (PHT): 2.30 cm2 TDI E/Lateral E': 21.00 E/Medial E': 29.40 Medial E' Tono.: 0.05 m/s Lateral E' Tono.: 0.07 m/s Pulmonary Valve PV Peak Tono.: 1.11 m/s PV Peak Gr.: 4.92 mmHg Tricuspid Valve RAP Estimate: 5.00 mmHg TR Peak Gr.: 33.85 mmHg RVSP: 38.00 mmHg PA Pressure: 38.00 mmHg Left Ventricle The left ventricle is normal size. There is normal LV segmental wall motion. Mild concentric left ventricular hypertrophy. Left ventricular systolic function is normal. The left ventricular ejection fraction is within the normal range. LVEF is 55-60%. The left ventricular diastolic function is normal. Right Ventricle The right ventricle is normal size. The right ventricular systolic function is normal. Atria Left atrium is moderately dilated. The right atrium size is normal. Aortic Valve Moderate aortic valve sclerosis. No aortic regurgitation is present. No hemodynamically significant valvular aortic stenosis. Mitral Valve Severe mitral annular calcification. Trace mitral regurgitation. No evidence of mitral valve stenosis. Tricuspid Valve The tricuspid valve is normal in structure. Trace tricuspid regurgitation. [place] [address] 2 D/M-MODE ECHOCARDIOGRAM Name: CINDI PAN Room: [address] IN [facility]#: [id number] Admission: 05/21/19 Attend Phys: Fabricio fishman Sa Discharge: Date of : 49 Date of Service: 05/21/19 1258 Report #: [id number] Pulmonic Valve The pulmonary valve is normal in structure. There is no pulmonic valvular regurgitation. Great Vessels The aortic root is normal in size. IVC is normal in size and collapses >50% with inspiration. Pericardium There is no pericardial effusion. <Conclusion> The left ventricle is normal size. Mild concentric left ventricular hypertrophy. Left ventricular systolic function is normal. The left ventricular ejection fraction is within the normal range. LVEF is 55-60%. The right ventricle is normal size. Left atrium is moderately dilated. The right atrium size is normal. Moderate aortic valve sclerosis. No aortic regurgitation is present. No hemodynamically significant valvular aortic stenosis. Severe mitral annular calcification. Trace mitral regurgitation. No evidence of mitral valve stenosis. The tricuspid valve is normal in structure. Trace tricuspid regurgitation. Mild pulmonary hypertension. IVC is normal in size and collapses >50% with inspiration. There is no pericardial effusion. There is normal LV segmental wall motion. <ELECTRONICALLY SIGNED> By: Ryan Jolly MD, FACC 05/21/19 1258 1258 1258 Ryan Jolly MD, FACC /INF
--- NOTE | 2019-05-21 14:46 | NUR ---
PATIENT ARRIVED FROM THE ER THIS AM AT 10:30. PATIENT PLACED ON TELE MONITOR ON ARRIVAL. TELE SHOWS NSR RATE IN THE 60'S. PATIENT ORIENTED TO THE ROOM AND PROCEDURES. HOME MEDICATIONS STARTED. CARDIZEM GTT CONTINUED FROM ER AT A RATE OF 5/HR. PATIENT DENIES PAIN. ECHO COMPLETED AND PATIENT TAKEN FOR US. CARDIOLOGY NURSE IN TO ROUND AND CARDIZEM GTT DISCONTINUED PER ORDER. WILL CONTINUE TO MONITOR PATIENT COMFORT AND HEART RHYTHM.
[2019-05-21 15:37] LABS: CHOLESTEROL 189 mg/dL (<200); HDL CHOLESTEROL 35 mg/dL (>40); LDL CHOLESTEROL 90 mg/dL (<100); TC:HDL 5.4 Ratio (Not establshd); TRIGLYCERIDE 321 mg/dL (<150); VLDL 64 mg/dL (<40)
[2019-05-21 15:38] LABS: SERUM ASSESSMENT Clear
[2019-05-21 15:58] VITALS: BP 151/63
[2019-05-21 19:40] VITALS: BP 150/56
[2019-05-22] VITALS: BP 164/60
[2019-05-22 03:59] LABS: HEMATOCRIT 30.2 % (37.0-47.0); HEMOGLOBIN 10.1 gm/dL (12.0-15.0); MCH 28.7 pg (26.0-34.0); MCHC 33.3 g/dL (28.0-37.0); RBC 3.52 mil/uL (4.20-5.00); RDW-CV 15.6 % (10.5-14.5); WBC 7.8 thou/uL (4.0-11.0)
[2019-05-22 04:00] VITALS: BP 149/60
[2019-05-22 04:19] LABS: ALBUMIN 2.7 g/dL (3.4-5.0); CALCIUM 8.4 mg/dL (8.5-10.1); CREATININE 1.8 mg/dL (0.6-1.3); MAGNESIUM 1.5 mg/dL (1.8-2.4); PHOSPHORUS* 4.6 mg/dL (2.5-4.9); POTASSIUM 3.5 mmol/L (3.5-5.1)
--- NOTE | 2019-05-22 07:21 | NUR ---
VSS. SEE MAR. SEE CHARTING. HOURLY ROUNDING FOR SAFETY.
[2019-05-22 07:40] VITALS: BP 160/58
[2019-05-22 10:33] VITALS: BP 123/52
[2019-05-22] MEDS ORDERED: SORINE 80 MG TA80 M1 PO (12:47)
--- NOTE | 2019-05-22 14:05 | NUR ---
PATIENT DISCHARGED TO HOME. DISCHARGE PAPERS REVIEWED AND SIGNED. PRESCRIPTION TRANSMITTED TO PHARMACY. IV REMOVED AND PRESSURE HELD. PATIENT DENIES ANY FURTHER NEEDS. PATIENT TAKEN BY WHEELCHAIR TO EXIT. LEFT WITH DAUGHTER.
== END 2019-05-22 14:05 | disposition home or self-care (01) | DRG 291 ==
LOC: M.ERS 06:52 → M.TBA-ER 07:41 → M.2W 07:41
PROVIDERS: Emergency Medicine Emergency Medical Services; Registered Nurse; ADMIT Family Medicine
DX: I13.0 Hypertensive heart and chronic kidney disease with heart failure and stage 1 through stage 4 chronic kidney disease, or unspecified chronic kidney disease (principal); I50.33 Acute on chronic diastolic (congestive) heart failure; I48.20 Chronic atrial fibrillation, unspecified; D68.59 Other primary thrombophilia; N18.3 Chronic kidney disease, stage 3 (moderate); I48.0 Paroxysmal atrial fibrillation; I25.10 Atherosclerotic heart disease of native coronary artery without angina pectoris; E11.51 Type 2 diabetes mellitus with diabetic peripheral angiopathy without gangrene; D50.9 Iron deficiency anemia, unspecified; E83.42 Hypomagnesemia; K21.9 Gastro-esophageal reflux disease without esophagitis; E78.5 Hyperlipidemia, unspecified; M79.89 Other specified soft tissue disorders; I25.2 Old myocardial infarction; Z79.01 Long term (current) use of anticoagulants; Z95.5 Presence of coronary angioplasty implant and graft; Z79.4 Long term (current) use of insulin; Z79.84 Long term (current) use of oral hypoglycemic drugs; Z79.899 Other long term (current) drug therapy; Z88.5 Allergy status to narcotic agent; Z88.8 Allergy status to other drugs, medicaments and biological substances; Z95.1 Presence of aortocoronary bypass graft; Z87.891 Personal history of nicotine dependence; Z82.49 Family history of ischemic heart disease and other diseases of the circulatory system

== ENCOUNTER 2019-06-15 10:26 | Inpatient (IN) | payer MEDICARE, OTHER ==
[~2019-06-15] VITALS: Ht 165.1 cm; Wt 75.2 kg
[2019-06-15 10:30] VITALS: BP 131/62
[2019-06-15 11:08] LABS: ABSOLUTE BASOPHILS 0.1 thou/uL (0.0-0.2); ABSOLUTE EOSINOPHILS 0.1 thou/uL (0.0-0.7); ABSOLUTE LYMPHOCYTES 1.2 thou/uL (0.8-5.3); ABSOLUTE MONOCYTES 0.4 thou/uL (0.0-1.2); ABSOLUTE NEUTROPHILS 5.4 thou/uL (1.6-8.1); EOSINOPHILS 1.7 %; HEMATOCRIT 34.5 % (37.0-47.0); HEMOGLOBIN 11.4 gm/dL (12.0-15.0); LYMPHOCYTES 16.4 %; MCH 27.8 pg (26.0-34.0); MCV 84.3 fL (80.0-100.0); MONOCYTES 5.7 %; MPV 8.2 fl. (7.2-11.1); NUCLEATED RBCS 0 /100WBC; PLATELET COUNT* 215 thou/uL (150-400); POLYS 75.2 %; RBC 4.09 mil/uL (4.20-5.00); RDW-CV 15.9 % (10.5-14.5); WBC 7.2 thou/uL (4.0-11.0)
[2019-06-15 11:15] LABS: CALCIUM 8.6 mg/dL (8.5-10.1); CREATININE 1.4 mg/dL (0.6-1.3); POTASSIUM 3.7 mmol/L (3.5-5.1)
[2019-06-15 11:19] LABS: APTT 30.3 Seconds (25.0-31.3); PROTIME 10.5 Seconds (9.20-11.50)
[2019-06-15 11:26] LABS: TOTAL BILIRUBIN 0.3 mg/dL (<0.1-1.0); TOTAL PROTEIN 6.5 g/dL (6.4-8.2)
[2019-06-15 12:16] LABS: URINE BILIRUBIN NEGATIVE (Negative); URINE BLOOD NEGATIVE (Negative); URINE CLARITY CLEAR; URINE COLOR YELLOW; URINE GLUCOSE-RANDOM TRACE (Negative); URINE KETONES NEGATIVE (Negative); URINE LEUKOCYTES-REFLEX NEGATIVE (Negative); URINE NITRITE-REFLEX NEGATIVE (Negative); URINE PROTEIN 3+ (Negative); URINE SPECIFIC GRAVITY 1.025 (1.005-1.030); URINE UROBILINOGEN 0.2 E.U./dl (0.2-1.0)
[2019-06-15 12:46] LABS: BACTERIA-REFLEX 1-9 Few /HPF (None Seen); CRYSTALS None Seen /LPF (None Seen); HYALINE CASTS 0-3 Few /LPF (None Seen); MUCUS 0-3 Light strn/LPF (None Seen); SQUAMOUS 4-10 Moderate /LPF (0-3); URINE RBC 0-2 Rare /HPF (0-2); URINE WBC-REFLEX 0-5 Rare /HPF (0-5)
[2019-06-15 14:41] VITALS: BP 142/57
[2019-06-15 15:50] VITALS: BP 132/73
--- NOTE | 2019-06-15 16:56 | EKG ---
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: TP : 1945 Requested By: Cassidy Hughes Order Number: [id number] MD: Ryan Jolly Measurements Intervals [place] Rate: 78 P: 44 CA: 148 QRS: 81 QRSD: 96 T: 19 QT: 388 QTc: 442 Interpretive Statements Sinus rhythm Atrial premature complex Probable left atrial enlargement Borderline right axis deviation Compared to ECG 05/21/2019 06:56:06 Atrial premature complex(es) now present Atrial fibrillation no longer present Electronically Signed On 06-15-2019 16:55:18 CDT by Ryan Jolly [email or web address] <ELECTRONICALLY SIGNED> By: Ryan Jolly MD, FACC 06/15/19 1655 1030 1030 Ryan Jolly MD, FAC /EPI
[2019-06-15 20:10] VITALS: BP 180/56
[2019-06-16 00:22] VITALS: BP 132/57
[2019-06-16 04:24] VITALS: BP 143/48
--- NOTE | 2019-06-16 04:59 | NUR ---
ASSUMED CARE AT 1910H, ON NC AT 1LPM AND TOLERATED. NO DISTRESS NOTED. PT JUST FELT NAUSEOUS THIS MORNING AFTER GOING TO THE RESTROOM. CRACKERS AND ICE CHIPS GIVEN. NO CHEST PAIN AND NO TACHYCARDIA NOTED. CONTINUE MONITORING AND TOWARD GOALS.
[2019-06-16 08:00] VITALS: BP 148/54
--- NOTE | 2019-06-16 11:53 | EKG ---
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: : 1945 Requested By: Demi Heard Order Number: [id number] Jovani MD: Ryan Jolly Measurements Intervals [place] Rate: 75 P: 33 SC: 140 QRS: 70 QRSD: 96 T: 10 QT: 426 QTc: 476 Interpretive Statements Sinus rhythm Probable left atrial enlargement Left ventricular hypertrophy Compared to ECG 06/15/2019 10:30:38 Left ventricular hypertrophy now present Atrial premature complex(es) no longer present Electronically Signed On 06-16-2019 11:52:10 CDT by Ryan Jolly [email or web address] <ELECTRONICALLY SIGNED> By: Ryan Jolly MD, [facility] 06/16/19 1152 0945 0945 Ryan Jolly MD, [facility] /EPI
[2019-06-16 12:30] VITALS: BP 160/50
[2019-06-16] MEDS ORDERED: MULTAQ400 MG PO (13:27)
[2019-06-16] MEDS ORDERED: COREG6.25 MG PO (13:27)
[2019-06-16 13:33] VITALS: BP 160/50
[2019-06-16 14:38] VITALS: BP 160/50
== END 2019-06-16 16:00 | disposition home or self-care (01) | DRG 309 ==
LOC: M.ERS 10:26 → M.2W 12:18 → M.TBA-ER 12:18 → M.2W 15:18
PROVIDERS: Personal Emergency Response Attendant; ADMIT Internal Medicine
DX: I48.0 Paroxysmal atrial fibrillation (principal); I50.32 Chronic diastolic (congestive) heart failure; N39.0 Urinary tract infection, site not specified; E44.0 Moderate protein-calorie malnutrition; I47.1 Supraventricular tachycardia; I25.10 Atherosclerotic heart disease of native coronary artery without angina pectoris; E11.51 Type 2 diabetes mellitus with diabetic peripheral angiopathy without gangrene; I11.0 Hypertensive heart disease with heart failure; G47.33 Obstructive sleep apnea (adult) (pediatric); E78.5 Hyperlipidemia, unspecified; K21.9 Gastro-esophageal reflux disease without esophagitis; I25.2 Old myocardial infarction; Z95.5 Presence of coronary angioplasty implant and graft; Z88.6 Allergy status to analgesic agent; Z88.5 Allergy status to narcotic agent; Z88.8 Allergy status to other drugs, medicaments and biological substances; Z79.899 Other long term (current) drug therapy; Z79.82 Long term (current) use of aspirin; Z79.84 Long term (current) use of oral hypoglycemic drugs; Z82.49 Family history of ischemic heart disease and other diseases of the circulatory system; Z95.1 Presence of aortocoronary bypass graft; Z68.27 Body mass index [BMI] 27.0-27.9, adult

== ENCOUNTER 2019-06-16 23:48 | Inpatient (IN) | payer MEDICARE, OTHER ==
[~2019-06-16] VITALS: Ht 165.1 cm; Wt 86.1 kg
[~2019-06-16 23:48] MED LIST changes: +COREG6.25 MG PO; +MULTAQ400 MG PO
[2019-06-16 23:56] VITALS: BP 152/48
[2019-06-17] VITALS (7 sets, daily range): BP systolic 115–179; BP diastolic 45–72
[2019-06-17 00:18] LABS: ABSOLUTE BASOPHILS 0.1 thou/uL (0.0-0.2); ABSOLUTE EOSINOPHILS 0.1 thou/uL (0.0-0.7); ABSOLUTE LYMPHOCYTES 1.6 thou/uL (0.8-5.3); ABSOLUTE MONOCYTES 0.7 thou/uL (0.0-1.2); ABSOLUTE NEUTROPHILS 7.6 thou/uL (1.6-8.1); BASOPHILS 0.7 %; EOSINOPHILS 0.9 %; HEMATOCRIT 34.4 % (37.0-47.0); HEMOGLOBIN 11.4 gm/dL (12.0-15.0); LYMPHOCYTES 16.1 %; MCH 28.1 pg (26.0-34.0); MCHC 33.2 g/dL (28.0-37.0); MCV 84.7 fL (80.0-100.0); MONOCYTES 7.1 %; NUCLEATED RBCS 0 /100WBC; PLATELET COUNT* 220 thou/uL (150-400); POLYS 75.2 %; RBC 4.06 mil/uL (4.20-5.00); RDW-CV 16.6 % (10.5-14.5)
[2019-06-17 00:24] LABS: CALCIUM 8.5 mg/dL (8.5-10.1); POTASSIUM 3.5 mmol/L (3.5-5.1)
[2019-06-17 00:28] LABS: APTT 31.3 Seconds (25.0-31.3); PROTIME 10.7 Seconds (9.20-11.50)
[2019-06-17 00:49] LABS: ALBUMIN 3.2 g/dL (3.4-5.0); CK-MB MASS 0.5 ng/mL (<0.5-3.6); MAGNESIUM 1.5 mg/dL (1.8-2.4); TOTAL BILIRUBIN 0.2 mg/dL (<0.1-1.0); TOTAL PROTEIN 6.8 g/dL (6.4-8.2)
--- NOTE | 2019-06-17 01:12 | NUR ---
PT ADMITTED TO FLOOR PER CART ACCOMPANIED BY ER STAFF WITH BELONGINGS. ORIENTED TO ROOM AND CALL LITE. HISTORY OBTAINED AND ASSESSMENT PERFORMED, SEE ADMIT NOTES. DENIES PAIN BUT STATES A SLIGHT CHEST HEAVINESS, STATES SHE FEELS A LITTLE BETTER THAN WHEN SHE CAME INTO ER. CO SLIGHT NAUSEA, NO EMESIS. CALL LITE IN EASY REACH. PT STATES SHE WANTS TO REST,DENIES FURTHER NEEDS AT THIS TIME. CALL LITE IN EASY REACH, BED ALARM ON FOR SAFETY.
--- NOTE | 2019-06-17 02:10 | NUR ---
REPORT GIVEN TO FANTA BARAJAS WHO WILL BE ASSUMING CARE OF PT. TELE MONITOR ON, PT AFIB WITH RATE FLUCTUATING. LAYING IN BED RESTING WITH EYES CLOSED AT PRESENT. CALL LITE IN EASY REACH, BED ALARM ON FOR SAFETY.
--- NOTE | 2019-06-17 05:26 | NUR ---
REPORT RECIEVED FROM IONA BARAJAS. NO REPORTS OF PAIN. FALL PRECAUTIONS IN PLACE. TELE MONITOR READINGS ALTERNATE BETWEEN SR TO AFIB RVR. CARDIOLOGY CONSULT CALLED. WILL CONTINUE WITH PLAN OF CARE.
--- NOTE | 2019-06-17 15:57 | NUR ---
PT C/O NAUSEA AT 1030 WELL A HEADACHE. ZOFRAN IV GIVEN AND UPON REASSESSMENT WAS ABLE TO GIVE PO MEDS. FAN RUNNER BELIEVES THIS IS R/T RECENT MED CHANGE. PT WAS STILL C/O NAUSEA AT 1430. SR ON THE MONITOR WITHOUT ELEVATIONS. PT EDUCATED ON IMPORTANCE OF REPORTING INCIDENTS OF NAUSEA WELL CP. CLWR.WCTM
--- NOTE | 2019-06-17 16:30 | NUR ---
PT REPORTS FEELING A FLUTTER THAT RADIATES FROM THE LEFT CHEST TO LEFT SHOULDER. TELEMETRY APPEARS UNCHANGED.WILL REASSESS AFTER MEDICATIONS HAVE METABALIZED.
--- NOTE | 2019-06-17 17:30 | EKG ---
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: [facility] : 1945 Requested By: Antonio Urena Order Number: [id number] MD: John Castro Measurements Intervals [place] Rate: 142 P: PA: QRS: 82 QRSD: 94 T: -73 QT: 291 QTc: 447 Interpretive Statements Atrial fibrillation Ventricular premature complex Borderline right axis deviation Consider left ventricular hypertrophy Nonspecific T abnormalities, inferior leads Compared to ECG 06/16/2019 09:45:29 Ventricular premature complex(es) now present T-wave abnormality now present Sinus rhythm no longer present Electronically Signed On 06-17-2019 17:29:01 CDT by John Castro [email or web address] <ELECTRONICALLY SIGNED> By: John Castro MD, FACC 06/17/19 1729 50 50 John Castro MD, [facility] /EPI
--- NOTE | 2019-06-17 18:49 | NUR ---
PT IS RESTING AT THIS TIME. NO C/O NAUSEA. HEADACHE IS BEING MANAGED WITH TYLENOL.
[2019-06-18] VITALS: BP 110/40
--- NOTE | 2019-06-18 03:09 | NUR ---
PT SLEEPY AROUSES EASILY. ONE EPISOID OF NAUSIA WITHOUT VOMITING. PT MOANING. ZOFRAN GIVEN. PT UP TO BSC WITH ONE PERSON ASSIST. ONE SMALL BM FORMED. PT IS NOW RESTING QUIETLY. TELEMETRY SHOWS SR. WCTM
[2019-06-18 04:00] VITALS: BP 157/44
--- NOTE | 2019-06-18 05:18 | NUR ---
PT WOKE UP 2.5 HRS AFTER ZOFRAN NEEDING MORE. TOO SOON DR NOTIFIED. COMPAZINE ORDERED AND GIVEN. ONE TIME DOSE OF REGLAN IF NAUSIA UNRELIEVED BY COMPAZINE. CT OF ABD AND CHEST W/O CONTRAST ORDERED THIS AM. WCTM
[2019-06-18 07:47] LABS: CALCIUM 8.4 mg/dL (8.5-10.1); CREATININE 1.9 mg/dL (0.6-1.3); POTASSIUM 4.5 mmol/L (3.5-5.1)
[2019-06-18 08:00] VITALS: BP 159/52
[2019-06-18 12:07] VITALS: BP 135/43
--- NOTE | 2019-06-18 14:12 | NUR ---
Pt is A&O. Resides at home alone. Known to this CM from previous hospital stay. No DME. Pt continues to work. Hx of [facility], no hx of SNF. Pt was set up with HH at last dc, per HH, Pt declined when they called to schedule intake, stating "I'm planning on returning to work, so don't need HH."
--- NOTE | 2019-06-18 18:28 | NUR ---
PT. AOX4, VSS, NSR ON MONITOR, PAIN RESOLVED, UP AT [place] TO BATHROOM, IV D/LUL DUE TO S/S OF INFLAMMATION. PT. REQUESTS THAT NO IV BE PLACED. DR. NORWOOD MESSAGED. PT. DENIES NAUSEA AND VERBALIZES "FEELING BETTER SINCE MORNING". PT. PO AND HYDRATING ADEQUATELY. CALL LIGHT AND PERSONAL BELONGINGS PLACED WITHIN REACH. HOURLY ROUNDING PERFORMED. PT. OUT OF BED IN CHAIR WATCHING TV AT THIS TIME.
[2019-06-18 20:00] VITALS: BP 167/47
[2019-06-19 00:08] VITALS: BP 165/47
[2019-06-19 04:26] VITALS: BP 165/47
[2019-06-19 07:00] VITALS: BP 181/55
--- NOTE | 2019-06-19 08:18 | NUR ---
INITAL ASSESSMENT COMPLETED CHARTED. VSS. TRACING SR WITH PAC'S. PT NICOLAS PAIN, CP, SOA, N/V/D. REFER TO COMPUTER CHARTING FOR FURTHER DETAILS. HOURLY ROUNDING AND FALL PRECAUTIONS IN PLACE FOR PT SAFETY. CLWR.
[2019-06-19] MEDS ORDERED: DIGOXIN0.125 MG/2 PO (10:41)
[2019-06-19] MEDS ORDERED: CARDIZEM120 MG PO (10:45)
[2019-06-19 10:53] VITALS: BP 181/55
== END 2019-06-19 12:00 | disposition home or self-care (01) | DRG 391 ==
LOC: M.ERS 23:48 → M.TBA-ER 06-17 00:27 → M.2W 06-17 00:27
PROVIDERS: Family Medicine; Internal Medicine; Registered Nurse; ADMIT Internal Medicine
DX: K52.9 Noninfective gastroenteritis and colitis, unspecified (principal); N17.0 Acute kidney failure with tubular necrosis; D68.59 Other primary thrombophilia; I48.92 Unspecified atrial flutter; I48.91 Unspecified atrial fibrillation; I49.8 Other specified cardiac arrhythmias; E11.51 Type 2 diabetes mellitus with diabetic peripheral angiopathy without gangrene; E78.5 Hyperlipidemia, unspecified; G47.33 Obstructive sleep apnea (adult) (pediatric); T50.905A Adverse effect of unspecified drugs, medicaments and biological substances, initial encounter; E83.42 Hypomagnesemia; Z87.11 Personal history of peptic ulcer disease; Z60.2 Problems related to living alone; I25.2 Old myocardial infarction; Z95.1 Presence of aortocoronary bypass graft; Z95.5 Presence of coronary angioplasty implant and graft; Z88.6 Allergy status to analgesic agent; Z88.8 Allergy status to other drugs, medicaments and biological substances; Z82.49 Family history of ischemic heart disease and other diseases of the circulatory system; Y92.89 Other specified places as the place of occurrence of the external cause

== ENCOUNTER 2019-07-13 22:08 | Inpatient (IN) | payer MEDICARE, OTHER ==
[~2019-07-13] VITALS: Ht 165.1 cm; Wt 81.2 kg
[~2019-07-13 22:08] MED LIST changes: +AMARYL2 M1 PO; +CARDIZEM120 MG PO; +COZAAR 50 MG TA50 MG PO; +DIGOXIN0.125 MG/2 PO; +FUROSEMIDE 40 M40 MG PO; +KLOR-CON 10 ER10 MEQ PO
[2019-07-13 22:40] LABS: ABSOLUTE BASOPHILS 0.1 thou/uL (0.0-0.2); ABSOLUTE EOSINOPHILS 0.1 thou/uL (0.0-0.7); ABSOLUTE LYMPHOCYTES 1.7 thou/uL (0.8-5.3); ABSOLUTE MONOCYTES 0.5 thou/uL (0.0-1.2); ABSOLUTE NEUTROPHILS 5.4 thou/uL (1.6-8.1); BASOPHILS 0.8 %; EOSINOPHILS 1.3 %; HEMATOCRIT 36.4 % (37.0-47.0); HEMOGLOBIN 11.6 gm/dL (12.0-15.0); LYMPHOCYTES 22.3 %; MCHC 31.8 g/dL (28.0-37.0); MCV 84.9 fL (80.0-100.0); MONOCYTES 6.1 %; NUCLEATED RBCS 0 /100WBC; PLATELET COUNT* 190 thou/uL (150-400); POLYS 69.5 %; RBC 4.28 mil/uL (4.20-5.00); RDW-CV 17.5 % (10.5-14.5); WBC 7.7 thou/uL (4.0-11.0)
[2019-07-13 22:49] LABS: APTT 29.9 Seconds (25.0-31.3)
[2019-07-13 22:58] LABS: CALCIUM 8.6 mg/dL (8.5-10.1); CREATININE 1.9 mg/dL (0.6-1.3); POTASSIUM 3.9 mmol/L (3.5-5.1)
[2019-07-13 23:19] LABS: ALBUMIN 3.3 g/dL (3.4-5.0); CK-MB MASS 2.1 ng/mL (<0.5-3.6); MAGNESIUM 1.4 mg/dL (1.8-2.4); TOTAL BILIRUBIN 0.2 mg/dL (<0.1-1.0); TOTAL PROTEIN 7.3 g/dL (6.4-8.2)
[2019-07-13 23:40] LABS: URINE BILIRUBIN NEGATIVE (Negative); URINE BLOOD TRACE (Negative); URINE CLARITY CLEAR; URINE COLOR YELLOW; URINE GLUCOSE-RANDOM 3+ (Negative); URINE KETONES NEGATIVE (Negative); URINE LEUKOCYTES-REFLEX NEGATIVE (Negative); URINE NITRITE-REFLEX NEGATIVE (Negative); URINE PROTEIN 3+ (Negative); URINE UROBILINOGEN 0.2 E.U./dl (0.2-1.0)
[2019-07-14] VITALS (7 sets, daily range): BP systolic 127–174; BP diastolic 55–70
[2019-07-14 00:18] LABS: CASTS None Seen /LPF (None Seen); SQUAMOUS 4-10 Moderate /LPF (0-3); URINE RBC 3-10 Few /HPF (0-2); URINE WBC-REFLEX 0-5 Rare /HPF (0-5)
[2019-07-14 00:19] LABS: BACTERIA-REFLEX None Seen /HPF (None Seen); CRYSTALS None Seen /LPF (None Seen)
[2019-07-14] MEDS ORDERED: DILTIAZEM 24HR120 M1 PO (01:41)
--- NOTE | 2019-07-14 16:24 | EKG ---
[place] [address] ELECTROCARDIOGRAM REPORT Name: CINDI PAN Room: [address] ADM IN ..#: [id number] Admission: 07/13/19 Attend Phys: Fabricio fishman Sa Discharge: Date of : 49 Date of Service: 07/13/192209 Report #: [id number] THIS REPORT FOR: //name// 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: [place] : 1945 Requested By: Antonio Urena Order Number: [id number] MD: Ryan Jolly Measurements Intervals [place] Rate: 101 P: 126 NV: 164 QRS: -80 QRSD: 157 T: 101 QT: 405 QTc: 525 Interpretive Statements Ventricular-paced complexes No further analysis attempted due to paced rhythm Compared to ECG 06/16/2019 23:51:39 Atrial fibrillation no longer present Ventricular premature complex(es) no longer present T-wave abnormality no longer present Electronically Signed On 07-14-2019 16:22:46 CDT by Ryan oJlly [email or web address] <ELECTRONICALLY SIGNED> By: Ryan Jolly MD, [facility] 07/14/19 1622 09 09 Ryan Jolly MD, [facility] /EPI
[2019-07-15] VITALS (8 sets, daily range): BP systolic 123–155; BP diastolic 48–59
[2019-07-15 05:22] LABS: HEMOGLOBIN 10.2 gm/dL (12.0-15.0); MCH 27.4 pg (26.0-34.0); MCHC 32.7 g/dL (28.0-37.0); MCV 83.7 fL (80.0-100.0); MPV 8.9 fl. (7.2-11.1); RBC 3.71 mil/uL (4.20-5.00); RDW-CV 16.6 % (10.5-14.5); WBC 6.9 thou/uL (4.0-11.0)
[2019-07-15 05:42] LABS: ALBUMIN 2.6 g/dL (3.4-5.0); CREATININE 1.7 mg/dL (0.6-1.3); MAGNESIUM 1.6 mg/dL (1.8-2.4); POTASSIUM 3.6 mmol/L (3.5-5.1); TOTAL BILIRUBIN 0.2 mg/dL (<0.1-1.0); TOTAL PROTEIN 5.9 g/dL (6.4-8.2)
[2019-07-16] VITALS (8 sets, daily range): BP systolic 120–157; BP diastolic 45–59
[2019-07-16] MEDS ORDERED: FLUCONAZOLE 10100 MG PO (11:13)
[2019-07-16] MEDS ORDERED: NITROGLYCERIN0.4 MG SUBLING (11:13)
[2019-07-16] MEDS ORDERED: IMDUR 60 MG TAB60 M1 PO (11:13)
[2019-07-16] MEDS ORDERED: HYDRALAZINE 2525 MG PO (11:13)
[2019-07-16] MEDS ORDERED: ELIQUIS5 MG PO (11:13)
[2019-07-16] MEDS ORDERED: PROTONIX40 M2 PO (11:15)
== END 2019-07-16 18:42 | disposition home health service (06) | DRG 280 ==
LOC: M.ERS 22:08 → M.TBA-ER 23:09 → M.2W 23:09
PROVIDERS: Family Medicine; Internal Medicine; ADMIT Family Medicine
DX: I21.4 Non-ST elevation (NSTEMI) myocardial infarction (principal); N17.0 Acute kidney failure with tubular necrosis; D68.69 Other thrombophilia; I50.32 Chronic diastolic (congestive) heart failure; I13.0 Hypertensive heart and chronic kidney disease with heart failure and stage 1 through stage 4 chronic kidney disease, or unspecified chronic kidney disease; E11.51 Type 2 diabetes mellitus with diabetic peripheral angiopathy without gangrene; E11.65 Type 2 diabetes mellitus with hyperglycemia; I25.10 Atherosclerotic heart disease of native coronary artery without angina pectoris; I48.0 Paroxysmal atrial fibrillation; N18.9 Chronic kidney disease, unspecified; E11.22 Type 2 diabetes mellitus with diabetic chronic kidney disease; N76.0 Acute vaginitis; B96.89 Other specified bacterial agents as the cause of diseases classified elsewhere; E78.5 Hyperlipidemia, unspecified; I25.2 Old myocardial infarction; Z95.5 Presence of coronary angioplasty implant and graft; Z95.0 Presence of cardiac pacemaker; Z95.1 Presence of aortocoronary bypass graft; Z88.6 Allergy status to analgesic agent; Z88.8 Allergy status to other drugs, medicaments and biological substances; Z87.891 Personal history of nicotine dependence; Z79.899 Other long term (current) drug therapy

== ENCOUNTER → 2019-09-07 | Outpatient (CLI) | payer MEDICARE, OTHER ==
[~2019-09-07] MED LIST changes: +DILTIAZEM 24HR120 M1 PO; +FLUCONAZOLE 10100 MG PO; +IMDUR 60 MG TAB60 M1 PO; +NITROGLYCERIN0.4 MG SUBLING; +PROTONIX40 M2 PO
[2019-09-07 09:48] LABS: HEMATOCRIT 33.2 % (37.0-47.0); HEMOGLOBIN 10.8 gm/dL (12.0-15.0)
[2019-09-07 10:13] LABS: CREATININE 1.6 mg/dL (0.6-1.3)
== END ==
LOC: M.LAB 09:26
PROVIDERS: ATTEND Surgery Vascular Surgery
DX: I70.213 Atherosclerosis of native arteries of extremities with intermittent claudication, bilateral legs (principal)

== ENCOUNTER 2019-10-02 05:02 | Observation (INO) | payer MEDICARE, OTHER ==
[~2019-10-02] VITALS: Ht 165.1 cm; Wt 81.7 kg
[2019-10-02 05:15] VITALS: BP 143/77
[2019-10-02 05:56] LABS: ABSOLUTE BASOPHILS 0.1 thou/uL (0.0-0.2); ABSOLUTE EOSINOPHILS 0.1 thou/uL (0.0-0.7); ABSOLUTE LYMPHOCYTES 1.2 thou/uL (0.8-5.3); ABSOLUTE MONOCYTES 0.4 thou/uL (0.0-1.2); EOSINOPHILS 1.3 %; HEMATOCRIT 30.7 % (37.0-47.0); HEMOGLOBIN 10.2 gm/dL (12.0-15.0); LYMPHOCYTES 14.1 %; MCH 26.8 pg (26.0-34.0); MCHC 33.3 g/dL (28.0-37.0); MCV 80.4 fL (80.0-100.0); MONOCYTES 4.6 %; MPV 8.7 fl. (7.2-11.1); NUCLEATED RBCS 0 /100WBC; PLATELET COUNT* 186 thou/uL (150-400); RBC 3.82 mil/uL (4.20-5.00); RDW-CV 17.2 % (10.5-14.5); WBC 8.8 thou/uL (4.0-11.0)
[2019-10-02 06:06] LABS: PROTIME 10.8 Seconds (9.20-11.50)
[2019-10-02 06:20] LABS: CALCIUM 8.6 mg/dL (8.5-10.1); CREATININE 1.7 mg/dL (0.6-1.3); POTASSIUM 4.3 mmol/L (3.5-5.1)
[2019-10-02 06:31] LABS: ALBUMIN 3.3 g/dL (3.4-5.0); MAGNESIUM 1.6 mg/dL (1.8-2.4); TOTAL BILIRUBIN 0.3 mg/dL (<0.1-1.0); TOTAL PROTEIN 6.3 g/dL (6.4-8.2)
[2019-10-02 10:35] VITALS: BP 183/76
[2019-10-02 11:13] VITALS: BP 178/81
--- NOTE | 2019-10-02 11:43 | EKG ---
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 : 1945 Requested By: Clemencia Back Order Number: [id number] MD: Partha Tan Measurements Intervals Normal Rate: 77 P: -45 MS: 191 QRS: -70 QRSD: 181 T: 114 QT: 465 QTc: 527 Interpretive Statements Atrial-sensed ventricular-paced rhythm No further analysis attempted due to paced rhythm Baseline wander in lead(s) II,III,aVL,aVF Compared to ECG 07/13/2019 22:10:20 rate has slowed Electronically Signed On 10-02-2019 11:42:58 CDT by Partha Tan [email or web address] <ELECTRONICALLY SIGNED> By: Partha Tan MD, [facility] 10/02/19 1142 0 0 Partha Tan MD, [facility] /EPI
--- NOTE | 2019-10-02 14:54 | EKG ---
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1945 Requested By: Kamala Gutiérrez Order Number: [id number] Jovani MD: Partha Tan Measurements Intervals [place] Rate: 81 P: 93 VA: 207 QRS: -73 QRSD: 178 T: 114 QT: 448 QTc: 520 Interpretive Statements atrial sensed and Ventricular-paced complexes No further analysis attempted due to paced rhythm Compared to ECG 10/02/2019 05:21:48 no change Electronically Signed On 10-02-2019 14:54:26 CDT by Partha Tan [email or web address] <ELECTRONICALLY SIGNED> By: Partha Tan MD, [facility] 10/02/19 1454 1410 1410 Partha Tan MD, [facility] /EPI
--- NOTE | 2019-10-02 15:49 | NUR ---
PT ADMITTED THIS MORNING C/O EXCR. PAIN TO LEFT SIDE AND ABD THEN LATER OF CHEST EKG UNREMARKABLE D/T PACEMAKER AND TROPS NEGATIVE THUS FAR MORPHINE CONT EVERY 4 HOURS WITHOUT MUCH RELIEF PER PT VERY NAUSEATED WITH EMESIS ZOFRAN GIVEN AND SCOPOLAMINE PATCH ON DR WEBSTER CALLED ON PAIN DR RODRÍGUEZ STATED SHE WILL BE IN PAIN DUE TO KIDNEY NEEDS SOMETHING NEW OR MORE FREQUENT CALL LIGHT IN REACH
--- NOTE | 2019-10-02 18:32 | NUR ---
PT TOD 1733 FAMILY NOTIFIED AND IN ROOM MTN CALLED FAMILY TO DECIDE ON HOME PT CLEANED UP AND ENDOTRACHEAL TUBE DC'D BELONGINGS TAKEN WITH FAMILY
--- NOTE | 2019-10-05 13:31 | CON ---
[address] [address] CONSULTATION Name: CINDI PAN Room: [address] Torrie Powers#: [id number] Admission: 10/02/19 Attend Phys: Kamala Gutiérrez MD Discharge: 10/02/19 Date of : 49 Report #: [id number] THIS REPORT FOR: //name// cc: Adithya Braga MD, Anthony MD ~ THIS REPORT FOR: //name// CC: Adithya Gutiérrez DATE OF SERVICE: 10/02/2019 CARDIOLOGY CONSULTATION HISTORY OF PRESENT ILLNESS: The patient is a 74-year-old thin white female who I was asked to see in the hospital today after she complained of arm pain. The patient has an extensive and complicated past medical history. She had coronary artery bypass surgery in 1997 in [facility] with 4 bypass grafts placed. She has had several stents since that time. She has a history of paroxysmal atrial fibrillation, although she denies ever being cardioverted. She was on amiodarone in the past, but developed nausea. The patient had a heart catheterization in 06/[address] Ryan Jolly. She had a patent REARDON graft to the LAD, patent vein graft to the circumflex to a distal marginal branch, although there was a 90% anastomosis of the vein graft into a small marginal branch. There was also a patent vein graft to the right coronary artery. There was a 90% narrowing of the left main artery. Dr. Jolly then placed a drug-eluting stent in the left main artery. She was then placed on clopidogrel. Ejection fraction 65%. She was referred to Dr. Jimenez in the EP Clinic. She has been INTOLERANT OF SEVERAL ANTIARRHYTHMIC THERAPY in the past. Dr. Jimenez performed AV node ablation and placement of a permanent dual chamber pacemaker in June. She has chronic back pain. She has had 2 back surgeries in the past. Recently, she has had more back pain. Today, she felt nausea and actually vomited. She complained of pain in her arms and took a nitroglycerin. Her daughter brought her to the hospital and she is admitted for further evaluation and treatment. She denies any increased shortness of breath, edema, palpitations, syncope, fever, cough or bleeding. PAST MEDICAL HISTORY: Otherwise, she has had previous knee surgery. She has a history of diabetes, hypertension, and hyperlipidemia. MEDICATIONS: Include Eliquis, Lipitor, Plavix, Lasix, Neurontin, Apresoline, insulin, Imdur, losartan, Protonix, Carafate, carvedilol. ALLERGIES: SHE HAS PREVIOUS INTOLERANCE [place] [address] CONSULTATION Name: CINDI PAN Asha Room: [address] MRsisa#: [id number] Admission: 10/02/19 Attend Phys: Kamala Gutiérrez MD Discharge: 10/02/19 Date of : 49 Report #: [id number] FAMILY HISTORY: Mother had heart disease. SOCIAL HISTORY: She is , lives by herself in [place], [place]. She uses a walker to get around. Quit smoking in 1997. No alcohol abuse. REVIEW OF SYSTEMS: She is overweight, standing 5 feet 4 inches, weight 180 pounds. She has no history of stroke, asthma, liver disease, kidney disease, cancer, psychiatric illness or chronic skin condition. PHYSICAL EXAMINATION: GENERAL: Revealed an elderly female lying in bed. She appeared in mild distress secondary to back pain. VITAL SIGNS: Blood pressure 140/70, pulse is 90. She is afebrile. HEENT: She was anicteric. Conjunctivae pink. Mucous membranes moist. NECK: Veins nondistended. No carotid bruits. CHEST: Clear to auscultation. CARDIOVASCULAR: Regular rate and rhythm, grade 2 systolic ejection murmur. ABDOMEN: Obese. EXTREMITIES: Had no pitting edema. Dorsalis pedis pulse 1+ bilaterally. SKIN: Cool and dry. NEUROLOGIC: Nonfocal. ECG shows atrial sense and ventricular capture rhythm. Her workup in the Emergency Room today, she had a chest x-ray that showed normal heart size and clear lung bang. She had a CT scan of the chest that showed no pulmonary embolus, no aortic dissection, evidence of thyroid goiter. LABORATORY WORK: Sodium 138, BUN 46, creatinine 1.7, it has been as high as 2.0 in 05/2019. Glucose 274. Liver function studies were normal. Troponins all 0.06. In May, her TSH is 0.1, T4 1.4. Her white blood cell count is 8.8, hemoglobin 10.2, it was actually 9.9 in April. IMPRESSION AND RECOMMENDATIONS: 1. Back pain. 2. Previous back surgeries. 3. Coronary artery disease. Stent placed in April. No evidence of acute myocardial infarction. The patient is on Plavix. 4. History of atrial fibrillation. No clinical recurrence. 5. Previous atrioventricular node ablation. The patient is AV sequentially paced. 6. Hypertension. The patient is on hydralazine, ARB and beta graciela. 7. Hyperlipidemia. The patient is on a statin drug. 8. Diabetes. 9. Nausea[place] [address] CONSULTATION Name: CINDI PAN Room: [address] Torrie Powers#: [id number] Admission: 10/02/19 Attend Phys: Kamala Gutiérrez MD Discharge: 10/02/19 Date of : 49 Report #: [id number] 10. Chronic kidney disease. 11. Anemia. No recent bleeding. <ELECTRONICALLY SIGNED> By: Partha Tan MD, FACC 10/05/19 1331 1529 [id number] Tan MD, FACC /nt
== END 2019-10-02 17:33 ==
LOC: M.ERS 05:02 → M.2W 08:57 → M.TBA-ER 08:57 → M.2W 10:50
PROVIDERS: Emergency Medicine; ADMIT Internal Medicine; ATTEND Internal Medicine
DX: Z03.818 Encounter for observation for suspected exposure to other biological agents ruled out (principal); R07.89 Other chest pain; R10.9 Unspecified abdominal pain; I70.1 Atherosclerosis of renal artery; I25.10 Atherosclerotic heart disease of native coronary artery without angina pectoris; I48.91 Unspecified atrial fibrillation; E11.22 Type 2 diabetes mellitus with diabetic chronic kidney disease; I13.0 Hypertensive heart and chronic kidney disease with heart failure and stage 1 through stage 4 chronic kidney disease, or unspecified chronic kidney disease; I50.9 Heart failure, unspecified; N17.9 Acute kidney failure, unspecified; R65.11 Systemic inflammatory response syndrome (SIRS) of non-infectious origin with acute organ dysfunction; N17.0 Acute kidney failure with tubular necrosis; I25.2 Old myocardial infarction; E78.5 Hyperlipidemia, unspecified; J44.9 Chronic obstructive pulmonary disease, unspecified; Z79.4 Long term (current) use of insulin; Z79.82 Long term (current) use of aspirin; Z87.891 Personal history of nicotine dependence